=== PATIENT | male | born 1975 | race African-American/Black ===

== ENCOUNTER 2017-01-28 21:05 | Inpatient (IN) | payer OTHER ==
[~2017-01-28] VITALS: Ht 172.7 cm; Wt 86.2 kg
[2017-01-28] MEDS ORDERED: HYDROmorphone 2 MG/ML VIAL ONE (21:14)
[2017-01-28] MEDS: HYDROmorphone 2 MG/ML VIAL IV/SQ PRN ×3 (21:15→22:57)
[2017-01-28 21:27] LABS: BASO # 0.1 x10^3/uL (0.0-0.2); BASO % 1 % (0-3); EOS % 0 % (0-3); HEMATOCRIT 42.8 % (39.0-53.0); HEMOGLOBIN 14.4 g/dL (13.0-17.5); LYMPH # 0.9 x10^3/uL (1.0-4.8); LYMPH % 10 % (24-48); MEAN CORPUSCULAR HEMOGLOBIN 32 pg (25-35); MEAN CORPUSCULAR HGB CONC 34 g/dL (31-37); MEAN CORPUSCULAR VOLUME 94 fL (79-100); MONO % 6 % (0-9); NEUT % 83 % (31-73); PLATELET COUNT 173 x10^3/uL (140-400); RED BLOOD COUNT 4.55 x10^6/uL (4.30-5.70); RED CELL DISTRIBUTION WIDTH 12.1 % (11.5-14.5); WHITE BLOOD COUNT 8.8 x10^3/uL (4.0-11.0)
--- NOTE | 2017-01-28 21:27 | PHYS DOC ---
Past Medical History Past Medical History: No Pertinent History Past Surgical History: No Surgical History Alcohol Use: Rarely Drug Use: None Adult General Chief Complaint Chief Complaint: TRAUMA ALERT HPI HPI 41 yo M presenting to the ED today after sliding into a base while playing softball. He injured his left leg. he has pain in the midshaft of the femur associated with swelling. His pain is sharp nonradiating and alleviated by fentanyl that was given riverboat captain by EMS. he was placed in a traction splint prior to arrival. ROS neg for head injury, LOC, neck pain, chest pain, abd pain. He denies any other injuries. all other ROS is neg unless noted in HPI elsewhere. ED course: 41 yo M presenting with an injury to the Femur. xrays obtained. Since for a midshaft femur fracture. No other injuries identified on secondary survey. I discussed the case with Dr. Kim orthopedic surgeon at approximately 9:30 PM. He recommended placing the patient in traction. I also discussed the case with Dr. Wiggins who accepted the patient for an acute inpatient admission. The patient was then admitted to our hospital for further evaluation workup and care. Trauma surgery consultation out of standard procedure. Review of Systems Review of Systems see above Current Medications Current Medications Current Medications Medications (Trade) Dose Ordered Sig/Min Start Time Stop Time Status Last Admin Dose Admin Hydromorphone HCl (Dilaudid) 0.5 mg PRN Q15MIN PRN 01/28/17 21:15 01/29/17 21:14 01/28/17 21:33 0.5 MG Sodium Chloride 1,000 ml @ 1,000 mls/hr Q1H 01/28/17 21:30 01/28/17 22:29 Allergies Allergies Allergies Coded Allergies Type Severity Reaction Last Updated Verified No Known Drug Allergies 01/28/17 No Physical Exam Physical Exam Constitutional: Well developed, well nourished, no acute distress, non-toxic appearance. HENT: Normocephalic, atraumatic, bilateral external ears normal, oropharynx moist, no oral exudates, nose normal. [] Eyes: PERRLA, EOMI, conjunctiva normal, no discharge. [] Neck: Normal range of motion, no tenderness, supple, no stridor. Cardiovascular:Heart rate regular rhythm, no murmur [] Lungs & Thorax: Bilateral breath sounds clear to auscultation [] Abdomen: Bowel sounds normal, soft, no tenderness, no masses, no pulsatile masses. Skin: Warm, dry, no erythema, no rash. [] Back: No tenderness, no CVA tenderness. [] Extremities: Pts right lower extremity is warm and well perfused with a palpable pulse. pt has pain in the midshaft of the thigh with swelling. nl sensation and motor distally. otherwise the remainder of the extremities are atraumatic. Neurologic: Alert and oriented X 3, normal motor function, normal sensory function, no focal deficits noted. Psychologic: Affect normal, judgement normal, mood normal. [] Current Patient Data Lab Values Laboratory Tests Test 01/28/17 21:08 White Blood Count 8.8 x10^3/uL (4.0-11.0) Red Blood Count 4.55 x10^6/uL (4.30-5.70) Hemoglobin 14.4 g/dL (13.0-17.5) Hematocrit 42.8 % (39.0-53.0) Mean Corpuscular Volume 94 fL (79-100) Mean Corpuscular Hemoglobin 32 pg (25-35) Mean Corpuscular Hemoglobin Concent 34 g/dL (31-37) Red Cell Distribution Width 12.1 % (11.5-14.5) Platelet Count 173 x10^3/uL (140-400) Neutrophils (%) (Auto) 83 % (31-73) H Lymphocytes (%) (Auto) 10 % (24-48) L Monocytes (%) (Auto) 6 % (0-9) Eosinophils (%) (Auto) 0 % (0-3) Basophils (%) (Auto) 1 % (0-3) Neutrophils # (Auto) 7.3 x10^3uL (1.8-7.7) Lymphocytes # (Auto) 0.9 x10^3/uL (1.0-4.8) L Monocytes # (Auto) 0.5 x10^3/uL (0.0-1.1) Eosinophils # (Auto) 0.0 x10^3/uL (0.0-0.7) Basophils # (Auto) 0.1 x10^3/uL (0.0-0.2) Sodium Level 142 mmol/L (136-145) Potassium Level 3.8 mmol/L (3.5-5.1) Chloride Level 105 mmol/L (98-107) Carbon Dioxide Level 28 mmol/L (21-32) Anion Gap 9 (6-14) Blood Urea Nitrogen 17 mg/dL (8-26) Creatinine 1.8 mg/dL (0.7-1.3) H Estimated GFR (Cockcroft-Gault) 50.3 Glucose Level 162 mg/dL (70-99) H Calcium Level 8.5 mg/dL (8.5-10.1) Ethyl Alcohol Level < 10 mg/dL (0-10) Laboratory Tests 01/28/17 21:08 Laboratory Tests 01/28/17 21:08 EKG EKG [] Radiology/Procedures Radiology/Procedures [] Course & Med Decision Making Course & Med Decision Making Pertinent Labs and Imaging studies reviewed. (See chart for details) [] Dragon Disclaimer Dragon Disclaimer This electronic medical record was generated, in whole or in part, using a voice recognition dictation system. Departure Departure Impression: Primary Impression: Right femoral fracture Disposition: ADMITTED INPATIENT Admitting Physician: Other (REUSCH) Condition: STABLE Referrals: UNKNOWN PCP NAME (PCP) ELLIOTT MITCHELL MD Jan 28, 2017 21:27
[2017-01-28] MEDS ORDERED: IV NORMAL SALINE 1000ML BAG 1,000 ML IV SCH (21:30)
[2017-01-28 21:34] LABS: CALCIUM 8.5 mg/dL (8.5-10.1); CREATININE 1.8 mg/dL (0.7-1.3); GFR 50.3; POTASSIUM 3.8 mmol/L (3.5-5.1)
[2017-01-28 21:35] LABS: INR 1.1 (0.8-1.1); PROTHROMBIN TIME PATIENT 13.9 SEC (11.7-14.0)
--- NOTE | 2017-01-28 23:54 | PDOC1 ---
History and Physical Date of Admission Date of Admission DATE: 01/28/17 TIME: 23:54 Identification/Chief Complaint Chief Complaint L femoral fx Problems: Source Source: Patient History of Present Illness History of Present Illness Mr Mendosa is a healthy 41 y/o man who sustained a femoral fracture on the left after hitting the first base plate during a softball game with his foot and stumbling over the loose plate and falling, sustaining the fracture. He relates that initially, the thigh was painful, but not very swollen, but in the ER, suddnely increased in girth with worsening pain. He required high dose narcotics and ice packs to get the pain under control. Dr Kim has been consulted by [facility], and surgery is planned for AM. Past Medical History Past Medical History no PMH Past Surgical History Past Surgical History: No pertinent history Family History Family History no known FHx Social History Smoke: No ALCOHOL: none Drugs: None Current Problem List Problem List Problems Medical Problems: (1) Right femoral fracture Status: Acute Problems: Current Medications Current Medications no home meds Allergies Allergies: Coded Allergies: No Known Drug Allergies (Unverified , 01/28/17) ROS Review of System severe pain in L thigh. no c/o in rest of organ system review Physical Exam General: Alert, Oriented X3, Cooperative, mild distress HEENT: Atraumatic, EOMI Lungs: Clear to auscultation Heart: RRR Abdomen: Normal bowel sounds, Soft, No tenderness Extremities: No edema, Other (massive swelling with very dense swelling in anterior compartment. skin tight, no discoloration) Skin: No rashes Neuro: Normal speech Psych/Mental Status: Mood NL Vitals Vitals Vital Signs Date Time Temp Pulse Resp B/P (MAP) Pulse Ox O2 Delivery O2 Flow Rate FiO2 01/28/17 21:10 66 20 Nasal Cannula 2.0 01/28/17 21:06 98.8 129/68 (88) 98 98.8 Labs Labs Laboratory Tests Test 01/28/17 21:08 White Blood Count 8.8 x10^3/uL (4.0-11.0) Red Blood Count 4.55 x10^6/uL (4.30-5.70) Hemoglobin 14.4 g/dL (13.0-17.5) Hematocrit 42.8 % (39.0-53.0) Mean Corpuscular Volume 94 fL (79-100) Mean Corpuscular Hemoglobin 32 pg (25-35) Mean Corpuscular Hemoglobin Concent 34 g/dL (31-37) Red Cell Distribution Width 12.1 % (11.5-14.5) Platelet Count 173 x10^3/uL (140-400) Neutrophils (%) (Auto) 83 % (31-73) Lymphocytes (%) (Auto) 10 % (24-48) Monocytes (%) (Auto) 6 % (0-9) Eosinophils (%) (Auto) 0 % (0-3) Basophils (%) (Auto) 1 % (0-3) Neutrophils # (Auto) 7.3 x10^3uL (1.8-7.7) Lymphocytes # (Auto) 0.9 x10^3/uL (1.0-4.8) Monocytes # (Auto) 0.5 x10^3/uL (0.0-1.1) Eosinophils # (Auto) 0.0 x10^3/uL (0.0-0.7) Basophils # (Auto) 0.1 x10^3/uL (0.0-0.2) Prothrombin Time 13.9 SEC (11.7-14.0) Prothromb Time International Ratio 1.1 (0.8-1.1) Activated Partial Thromboplast Time 24 SEC (24-38) Sodium Level 142 mmol/L (136-145) Potassium Level 3.8 mmol/L (3.5-5.1) Chloride Level 105 mmol/L (98-107) Carbon Dioxide Level 28 mmol/L (21-32) Anion Gap 9 (6-14) Blood Urea Nitrogen 17 mg/dL (8-26) Creatinine 1.8 mg/dL (0.7-1.3) Estimated GFR (Cockcroft-Gault) 50.3 Glucose Level 162 mg/dL (70-99) Calcium Level 8.5 mg/dL (8.5-10.1) Ethyl Alcohol Level < 10 mg/dL (0-10) Laboratory Tests Test 01/28/17 21:08 White Blood Count 8.8 x10^3/uL (4.0-11.0) Red Blood Count 4.55 x10^6/uL (4.30-5.70) Hemoglobin 14.4 g/dL (13.0-17.5) Hematocrit 42.8 % (39.0-53.0) Mean Corpuscular Volume 94 fL (79-100) Mean Corpuscular Hemoglobin 32 pg (25-35) Mean Corpuscular Hemoglobin Concent 34 g/dL (31-37) Red Cell Distribution Width 12.1 % (11.5-14.5) Platelet Count 173 x10^3/uL (140-400) Neutrophils (%) (Auto) 83 % (31-73) Lymphocytes (%) (Auto) 10 % (24-48) Monocytes (%) (Auto) 6 % (0-9) Eosinophils (%) (Auto) 0 % (0-3) Basophils (%) (Auto) 1 % (0-3) Neutrophils # (Auto) 7.3 x10^3uL (1.8-7.7) Lymphocytes # (Auto) 0.9 x10^3/uL (1.0-4.8) Monocytes # (Auto) 0.5 x10^3/uL (0.0-1.1) Eosinophils # (Auto) 0.0 x10^3/uL (0.0-0.7) Basophils # (Auto) 0.1 x10^3/uL (0.0-0.2) Prothrombin Time 13.9 SEC (11.7-14.0) Prothromb Time International Ratio 1.1 (0.8-1.1) Activated Partial Thromboplast Time 24 SEC (24-38) Sodium Level 142 mmol/L (136-145) Potassium Level 3.8 mmol/L (3.5-5.1) Chloride Level 105 mmol/L (98-107) Carbon Dioxide Level 28 mmol/L (21-32) Anion Gap 9 (6-14) Blood Urea Nitrogen 17 mg/dL (8-26) Creatinine 1.8 mg/dL (0.7-1.3) Estimated GFR (Cockcroft-Gault) 50.3 Glucose Level 162 mg/dL (70-99) Calcium Level 8.5 mg/dL (8.5-10.1) Ethyl Alcohol Level < 10 mg/dL (0-10) VTE Prophylaxis Ordered VTE Prophylaxis Devices: Yes VTE Pharmacological Prophylaxi: Contraindicated Assessment/Plan Assessment/Plan Mr Mendosa is a 41 y/o AAM with L femoral fracture sustained in a sporting accident. He is schedule dfor surgery in AM. The swelling in his thigh is quite concerning for compartment syndrome. if worsening in swelling or skin changes, neurological compromise or uncontrolled pain occur, immediate surgery may be indicated. For an time being, he will receive IV dilaudid or morphine PRN. lovenox will be held until post surgery. He willbe NPO post MN, and will be started in IVF. SIMON BANDA MD Jan 28, 2017 23:54
[2017-01-29] VITALS (12 sets, daily range): BP systolic 111–156; BP diastolic 51–89
[2017-01-29] MEDS ORDERED: IV NORMAL SALINE 1000ML BAG 1,000 ML IV SCH
[2017-01-29] MEDS: MORPHINE SULFATE 4 MG/ML DISP.SYRIN. IV PRN ×4 (01:13→21:38)
[2017-01-29 04:28] LABS: BASO % 1 % (0-3); EOS % 0 % (0-3); HEMATOCRIT 39.1 % (39.0-53.0); HEMOGLOBIN 13.1 g/dL (13.0-17.5); LYMPH # 0.6 x10^3/uL (1.0-4.8); LYMPH % 6 % (24-48); MEAN CORPUSCULAR HEMOGLOBIN 32 pg (25-35); MEAN CORPUSCULAR HGB CONC 33 g/dL (31-37); MEAN CORPUSCULAR VOLUME 95 fL (79-100); MONO % 6 % (0-9); NEUT % 87 % (31-73); PLATELET COUNT 149 x10^3/uL (140-400); RED BLOOD COUNT 4.13 x10^6/uL (4.30-5.70); WHITE BLOOD COUNT 9.6 x10^3/uL (4.0-11.0)
--- NOTE | 2017-01-29 04:41 | ACF ---
Admission Forms Criteria MUSCULOSKELETAL DISEASE GRG Clinical Indications for Admission to Inpatient Care (Place 'X' for any and all applicable criteria): Hospital admission is needed for appropriate care of the patient because of 1 or more of the following: [X]I. Fracture, dislocation, or other musculoskeletal injury requiring inpatient care(medical) as indicated by 1 or more of the following(4)(5)(6)(7) [ ]a) Vertebral fracture requiring observation for instability or neurologic compromise (8) [ ]b) Compartment syndrome (proven or cannot be ruled out during observation level of care) (9) [ ]c) Limb-threatening injury [ ]d) Major injury requiring inpatient stabilization such as traction initiation or external fixation before internal fixation or closure of complex or open fracture [X]e) Major injury requiring inpatient treatment after emergency or observation level care (as appropriate) [ ]f) Severe pain requiring acute inpatient management [ ]g) Injury with suspicion of abuse or neglect (eg., child, dependent elderly) [ ]II. Newly diagnosed or suspected bone, joint, or orthopedic device infection (e.g., osteomyelitis, septic arthritis) needing 1 or more of the following(1)(2)(3) [ ]a) IV antibiotics that cannot be initiated in other than inpatient setting (e.g., patient too unstable or home infusion not available) [ ]b) Device removal or replacement [ ]c) Bone or soft tissue debridement [ ]d) Joint drainage (drain placement or repetitive aspirations) [ ]III. Severe rheumatologic disease (e.g., systemic lupus erythematosus, rheumatoid arthritis) with complications or comorbidities (Also use Optimal Recovery Care Criteria or General Recovery Criteria as appropriate on the basis of predominant condition), including 1 or more of the following( 10)(11)(12)(13) [ ]a) Severe infection (e.g., LEADER [employer]SEMBLER infection, sepsis) (14) [ ]b) Respiratory complications, including 1 or more of the following : [ ]i) Pleural effusion with respiratory compromise [ ]ii) Pulmonary hypertension with congestive failure [ ]iii) Respiratory failure [ ]iv) Pulmonary hemorrhage (15) [ ]c) Hematologic disease, including 1 or more of the following: [ ]i) Coagulopathy with bleeding [ ]ii) Thrombosis with hypercoagulable state [ ]iii) Thrombotic thrombocytopenic purpura [ ]d) Cerebritis with seizures, psychosis, or other severe abnormalities [ ]e) Vertebral destruction with monitoring needed for cervical myelopathy& possible respiratory compromise [ ]f) Exacerbation that requires inpatient treatment (e.g., intravenous immunosuppression) (16) [ ]g) Acute renal failure [ ]h) Cerebritis with seizures, psychosis, Altered mental status, or other neurologic abnormalities [ ]i) Pericardial effusion with tamponade [ ]j) Vertebral destruction, with monitoring needed for cervical myelopathy and possible respiratory compromise [ ]IV. Severe vasculitis with complications or comorbidities (Also use Optimal Recovery Care Criteria General Recovery Criteria as appropriate on the basis of predominant condition), including 1 or more of the following(11)(12)(17)(18)(19)(20) [ ]a) Exacerbation that requires inpatient treatment (e.g., intravenous immunosuppression) (19)(21) [ ]b) Pulmonary hemorrhage (15) [ ]c) LEADER ASSEMBLER vasculitis with seizures, psychosis, Altered mental status that is severe or persistent, or other severe abnormalities (22) [ ]d) Cerebral infarction [ ]e) Gastrointestinal ischemia [ ]f) Gangrene or threatened amputation [ ]g) Renal failure (16) [ ]h) Other significant complications of vasculitis ( eg., tissue or organ ischemia, organ dysfunction ) [ ]V. Severe myopathy as indicated by 1 or more of the following (28)(29) [ ]a) New onset of airway compromise or inability to swallow [ ]b) Respiratory deterioration with observation needed for impending respiratory failure [ ]c) Exacerbation that requires inpatient treatment (e.g., intravenous immunosuppression) [ ]. Severe crystal gout (arthropathy) indicated by 1 or more of the following (23)(24) [ ]a) Severe pain requiring acute inpatient management [ ]b) Exacerbation that requires inpatient treatment (e.g., intravenous treatment) [ ]VII.Rhabdomyolysis and 1 or more of the following (25)(26)(27) [ ]a) Acute renal failure [ ]b) Need for intravenous hydration after emergency or observation level care (as appropriate) [ ]c) Inability to maintain oral hydration [ ]d) Change in mental status [ ]e) Electrolyte abnormality that remains after emergency or observation level care (as appropriate) [ ]VIII Post amputation complication, as indicated by ANY ONE of the following [ ]a) Infection [ ]b) Dehiscence [ ]c) Myodesis failure [ ]IX. Severe pain requiring acute inpatient management due to musculoskeletal condition [ ]X. Musculoskeletal Disease and ALL of the following: [ ]a) Symptom or finding for which emergency and observation care have failed or are not considered appropriate (Use General Criteria: Observation Care as appropriate) [ ]b) Presence of ANY ONE of the following [ ]i) A General Admission Criteria [ ]ii) A Pediatric General Admission Criteria The original [facility] [employer] content created by [facility] [employer] has been revised. The portions of the content which have been revised are identified through the use of italic text or in bold, and [facility] has neither reviewed nor approved the modified material. All other unmodified content is copyright [facility] [employer]. Please see references footnoted in the original [facility] [employer] edition 2016 Admission Criteria Met?: Yes MARIE VILLARREAL Jan 29, 2017 04:41
[2017-01-29 04:44] LABS: CALCIUM 7.5 mg/dL (8.5-10.1); CREATININE 1.4 mg/dL (0.7-1.3); GFR 67.2; POTASSIUM 3.9 mmol/L (3.5-5.1)
[2017-01-29 07:43] LABS: % BASOS 1 % (0-3); PLT ESTIMATE ADEQUATE (ADEQUATE)
[2017-01-29] MEDS ORDERED: LIDOCAINE 2% PF Vial for OR 5 ML VIAL. ONE (08:11)
[2017-01-29] MEDS ORDERED: fentaNYL PF VIAL 100 MCG/2 ML VIAL ONE ×2 (08:11→08:38)
[2017-01-29] MEDS ORDERED: PROPOFOL 20 ML IV ONE (08:11)
--- NOTE | 2017-01-29 08:19 | RAD ---
Left femur, 2 views, 01/28/2017: History: Leg pain, injury There is a comminuted fracture of the mid femoral shaft. There is moderate medial and posterior displacement of the major distal fracture fragment. Limited views of the knee and hip are unremarkable. IMPRESSION: Comminuted, displaced mid femoral shaft fracture Pelvis, single view, 01/28/2017: The upper portion of the pelvis was not completely included on this limited exam. No pelvic fracture is identified. The hip joints are well-maintained.
[2017-01-29] MEDS ORDERED: IV RINGERS,LACTATED 1000ML 1,000 ML IV SCH (08:43)
[2017-01-29] MEDS: fentaNYL PF VIAL 100 MCG/2 ML VIAL IV PRN ×2 (08:45→12:35)
[2017-01-29] MEDS ORDERED: PROCHLORPERAZINE 10 MG/2 ML VIAL. IV PRN (08:45)
[2017-01-29] MEDS ORDERED: MORPHINE SULFATE 2 MG/ML DISP.SYRIN. IV PRN (08:45)
[2017-01-29] MEDS ORDERED: fentaNYL PF VIAL 100 MCG/2 ML VIAL IV PRN ×2 (08:45→13:00)
[2017-01-29] MEDS ORDERED: LIDOCAINE 1% 1 ML SYRINGE. ID PRN (08:45)
[2017-01-29] MEDS ORDERED: ONDANSETRON PF 4 MG/2 ML VIAL. IV PRN ×2 (08:45→13:00)
--- NOTE | 2017-01-29 10:37 | PDOC2 ---
CONSULT Date of Consult Date of Consult DATE: 01/29/17 TIME: 10:33 Reason for Consult Reason for Consult: femur fracture Referring Physician Referring Physician: Judy Identification/Chief Complaint Chief Complaint left upper leg pain Problems: Source Source: Patient History of Present Illness Reason for Visit: 41 yo M fell during softball yesterday and heard a pop. C/o pain left upper leg. No other c/o. Past Medical History Cardiovascular: No pertinent hx Past Surgical History Past Surgical History: No pertinent history (finger surgery) Family History Family History: No Significant Social History No ALCOHOL: none Drugs: None Current Problem List Problem List Problems Medical Problems: (1) Right femoral fracture Status: Acute Current Medications Current Medications Current Medications Hydromorphone HCl (Dilaudid) 2 mg STK-MED ONCE .ROUTE ; Start 01/28/17 at 21:14 ; Stop 01/28/17 at 21:15; Status DC Hydromorphone HCl (Dilaudid) 0.5 mg PRN Q15MIN PRN IV/SQ PAIN GREATER THAN 3/ 10 Last administered on 01/28/17 22:57; Start 01/28/17 at 21:15; Stop 01/29/17 at 21:14 Sodium Chloride 1,000 ml @ 1,000 mls/hr Q1H IV Last administered on 01/28/17 21:30; Start 01/28/17 at 21:30; Stop 01/28/17 at 22:29; Status DC Morphine Sulfate 4 mg PRN Q2HR PRN IV SEVERE PAIN Last administered on 06:14; Start 01/29/17 at 00:00; Stop 01/29/17 at 23:59 Sodium Chloride 1,000 ml @ 125 mls/hr Q8H IV Last administered on 01/29/17 01 :47; Start 01/29/17 at 00:00; Stop 01/29/17 at 00:01; Status DC Sodium Chloride 1,000 ml @ 50 mls/hr Q20H IV ; Start 01/29/17 at 02:30 Lidocaine HCl (Lidocaine Pf 2% Vial) 5 ml STK-MED ONCE .ROUTE ; Start 01/29/17 at 08:11; Stop 01/29/17 at 08:12; Status DC Propofol 20 ml @ As Directed STK-MED ONCE IV ; Start 01/29/17 at 08:11; Stop 06/07 at 08:12; Status DC Fentanyl Citrate (Fentanyl 2ml Vial) 100 mcg STK-MED ONCE .ROUTE ; Start at 08:11; Stop 01/29/17 at 08:12; Status DC Fentanyl Citrate (Fentanyl 2ml Vial) 100 mcg STK-MED ONCE .ROUTE ; Start at 08:38; Stop 01/29/17 at 08:39; Status DC Ondansetron HCl (Zofran) 4 mg PRN Q6HRS PRN IV NAUSEA/VOMITING; Start 01/29/17 at 08:45; Stop 01/29/17 at 18:00 Fentanyl Citrate (Fentanyl 2ml Vial) 25 mcg PRN Q5MIN PRN IV MILD PAIN; Start 01/29/17 at 08:45; Stop 01/29/17 at 18:00 Fentanyl Citrate (Fentanyl 2ml Vial) 50 mcg PRN Q5MIN PRN IV MODERATE PAIN Last administered on 01/29/17t 08:45; Start 01/29/17 at 08:45; Stop 01/29/17 at 18:00 Morphine Sulfate 1 mg PRN Q10MIN PRN IV SEVERE PAIN; Start 01/29/17 at 08:45; Stop 01/29/17 at 18:00 Ringer's Solution 1,000 ml @ 30 mls/hr Q24H IV ; Start 01/29/17 at 08:43; Stop 01/29/17 at 20:42 Lidocaine HCl 2 ml PRN 1X PRN ID PRIOR TO IV START; Start 01/29/17 at 08:45; Stop 01/29/17 at 18:00 Hydromorphone HCl (Dilaudid) 0.5 mg PRN Q10MIN PRN IV SEV PAIN, Second choice; Start 01/29/17 at 08:45; Stop 01/29/17 at 18:00 Prochlorperazine Edisylate (Compazine) 5 mg PACU PRN PRN IV NAUSEA, MRX1; Start 01/29/17 at 08:45; Stop 01/29/17 at 18:00 Cefazolin Sodium/ Dextrose 50 ml @ 100 mls/hr 1X PREOP PRN IV PRE OP DOSE; Start 01/29/17 at 10:15; Stop 01/29/17 at 18:00 Active Scripts Active Reported No Known Medications Prior To Admisstion (Info) Each 1 Each Allergies Allergies: Coded Allergies: No Known Drug Allergies (Unverified , 01/28/17) ROS Musculoskeletal: Yes Other (left leg pain, some decrease in sensation of left foot) Physical Exam General: Alert, Oriented X3, Cooperative, No acute distress HEENT: Atraumatic, EOMI, Mucous membr. moist/pink Lungs: Normal air movement Extremities: No clubbing, No cyanosis, Normal pulses, Other (left leg in traction) Psych/Mental Status: Mental status NL, Mood NL Vitals VITALS Vital Signs Date Time Temp Pulse Resp B/P (MAP) Pulse Ox O2 Delivery O2 Flow Rate FiO2 01/29/17 08:45 16 Room Air 01/29/17 08:31 100.4 63 135/77 96 100.4 01/29/17 06:14 2.0 Labs Labs Laboratory Tests Test 01/28/17 21:08 01/29/17 03:35 White Blood Count 8.8 x10^3/uL (4.0-11.0) 9.6 x10^3/uL (4.0-11.0) Red Blood Count 4.55 x10^6/uL (4.30-5.70) 4.13 x10^6/uL (4.30-5.70) Hemoglobin 14.4 g/dL (13.0-17.5) 13.1 g/dL (13.0-17.5) Hematocrit 42.8 % (39.0-53.0) 39.1 % (39.0-53.0) Mean Corpuscular Volume 94 fL (79-100) 95 fL (79-100) Mean Corpuscular Hemoglobin 32 pg (25-35) 32 pg (25-35) Mean Corpuscular Hemoglobin Concent 34 g/dL (31-37) 33 g/dL (31-37) Red Cell Distribution Width 12.1 % (11.5-14.5) 12.0 % (11.5-14.5) Platelet Count 173 x10^3/uL (140-400) 149 x10^3/uL (140-400) Neutrophils (%) (Auto) 83 % (31-73) 87 % (31-73) Lymphocytes (%) (Auto) 10 % (24-48) 6 % (24-48) Monocytes (%) (Auto) 6 % (0-9) 6 % (0-9) Eosinophils (%) (Auto) 0 % (0-3) 0 % (0-3) Basophils (%) (Auto) 1 % (0-3) 1 % (0-3) Neutrophils # (Auto) 7.3 x10^3uL (1.8-7.7) 8.3 x10^3uL (1.8-7.7) Lymphocytes # (Auto) 0.9 x10^3/uL (1.0-4.8) 0.6 x10^3/uL (1.0-4.8) Monocytes # (Auto) 0.5 x10^3/uL (0.0-1.1) 0.6 x10^3/uL (0.0-1.1) Eosinophils # (Auto) 0.0 x10^3/uL (0.0-0.7) 0.0 x10^3/uL (0.0-0.7) Basophils # (Auto) 0.1 x10^3/uL (0.0-0.2) 0.0 x10^3/uL (0.0-0.2) Prothrombin Time 13.9 SEC (11.7-14.0) Prothromb Time International Ratio 1.1 (0.8-1.1) Activated Partial Thromboplast Time 24 SEC (24-38) Sodium Level 142 mmol/L (136-145) 142 mmol/L (136-145) Potassium Level 3.8 mmol/L (3.5-5.1) 3.9 mmol/L (3.5-5.1) Chloride Level 105 mmol/L (98-107) 108 mmol/L (98-107) Carbon Dioxide Level 28 mmol/L (21-32) 26 mmol/L (21-32) Anion Gap 9 (6-14) 8 (6-14) Blood Urea Nitrogen 17 mg/dL (8-26) 15 mg/dL (8-26) Creatinine 1.8 mg/dL (0.7-1.3) 1.4 mg/dL (0.7-1.3) Estimated GFR (Cockcroft-Gault) 50.3 67.2 Glucose Level 162 mg/dL (70-99) 121 mg/dL (70-99) Calcium Level 8.5 mg/dL (8.5-10.1) 7.5 mg/dL (8.5-10.1) Ethyl Alcohol Level < 10 mg/dL (0-10) Segmented Neutrophils % 87 % (35-66) Band Neutrophils % 4 % (0-9) Lymphocytes % 5 % (24-48) Monocytes % 3 % (0-10) Basophils % 1 % (0-3) Platelet Estimate Adequate (ADEQUATE) Laboratory Tests Test 01/28/17 21:08 01/29/17 03:35 White Blood Count 8.8 x10^3/uL (4.0-11.0) 9.6 x10^3/uL (4.0-11.0) Red Blood Count 4.55 x10^6/uL (4.30-5.70) 4.13 x10^6/uL (4.30-5.70) Hemoglobin 14.4 g/dL (13.0-17.5) 13.1 g/dL (13.0-17.5) Hematocrit 42.8 % (39.0-53.0) 39.1 % (39.0-53.0) Mean Corpuscular Volume 94 fL (79-100) 95 fL (79-100) Mean Corpuscular Hemoglobin 32 pg (25-35) 32 pg (25-35) Mean Corpuscular Hemoglobin Concent 34 g/dL (31-37) 33 g/dL (31-37) Red Cell Distribution Width 12.1 % (11.5-14.5) 12.0 % (11.5-14.5) Platelet Count 173 x10^3/uL (140-400) 149 x10^3/uL (140-400) Neutrophils (%) (Auto) 83 % (31-73) 87 % (31-73) Lymphocytes (%) (Auto) 10 % (24-48) 6 % (24-48) Monocytes (%) (Auto) 6 % (0-9) 6 % (0-9) Eosinophils (%) (Auto) 0 % (0-3) 0 % (0-3) Basophils (%) (Auto) 1 % (0-3) 1 % (0-3) Neutrophils # (Auto) 7.3 x10^3uL (1.8-7.7) 8.3 x10^3uL (1.8-7.7) Lymphocytes # (Auto) 0.9 x10^3/uL (1.0-4.8) 0.6 x10^3/uL (1.0-4.8) Monocytes # (Auto) 0.5 x10^3/uL (0.0-1.1) 0.6 x10^3/uL (0.0-1.1) Eosinophils # (Auto) 0.0 x10^3/uL (0.0-0.7) 0.0 x10^3/uL (0.0-0.7) Basophils # (Auto) 0.1 x10^3/uL (0.0-0.2) 0.0 x10^3/uL (0.0-0.2) Prothrombin Time 13.9 SEC (11.7-14.0) Prothromb Time International Ratio 1.1 (0.8-1.1) Activated Partial Thromboplast Time 24 SEC (24-38) Sodium Level 142 mmol/L (136-145) 142 mmol/L (136-145) Potassium Level 3.8 mmol/L (3.5-5.1) 3.9 mmol/L (3.5-5.1) Chloride Level 105 mmol/L (98-107) 108 mmol/L (98-107) Carbon Dioxide Level 28 mmol/L (21-32) 26 mmol/L (21-32) Anion Gap 9 (6-14) 8 (6-14) Blood Urea Nitrogen 17 mg/dL (8-26) 15 mg/dL (8-26) Creatinine 1.8 mg/dL (0.7-1.3) 1.4 mg/dL (0.7-1.3) Estimated GFR (Cockcroft-Gault) 50.3 67.2 Glucose Level 162 mg/dL (70-99) 121 mg/dL (70-99) Calcium Level 8.5 mg/dL (8.5-10.1) 7.5 mg/dL (8.5-10.1) Ethyl Alcohol Level < 10 mg/dL (0-10) Segmented Neutrophils % 87 % (35-66) Band Neutrophils % 4 % (0-9) Lymphocytes % 5 % (24-48) Monocytes % 3 % (0-10) Basophils % 1 % (0-3) Platelet Estimate Adequate (ADEQUATE) Images Images XR left femur fracture Assessment/Plan Assessment/Plan left femur fracture pt seen in preop, going for repair by ortho no trauma surgery plans Thanks for consult! ELIZABETH POOLE MD Jan 29, 2017 10:37 am
[2017-01-29] MEDS ORDERED: SEVOFLURANE 61 TO 120 MINUTES. IH ONE (10:58)
[2017-01-29] MEDS ORDERED: DEXAMETHASONE SOD PHOS 20 MG/5 ML VIAL. ONE (10:58)
[2017-01-29] MEDS ORDERED: ONDANSETRON PF 4 MG/2 ML VIAL. ONE (11:24)
--- NOTE | 2017-01-29 12:13 | PDOC ---
PROGRESS NOTES Chief Complaint Chief Complaint L femoral fracture ASSESSMENT AND PLAN: 1. L femur fx: s/p ORIF left femoral shaft fx with anterograde IM nail this AM. recovering appropriately. 2. Thigh swelling: compartment syndrome, improving 3. Pain control: IV dilaudid or morphine PRN. 4. Nutrition: advance diet as tolerated 5. Constipation: narcotic induced. miralax bid 6. Prophylaxis: start lovenox in AM . Vitals Vitals Vital Signs Date Time Temp Pulse Resp B/P (MAP) Pulse Ox O2 Delivery O2 Flow Rate FiO2 01/29/17 08:45 16 Room Air 01/29/17 08:31 100.4 63 135/77 96 100.4 01/29/17 06:14 2.0 Physical Exam General: Alert, Oriented X3, Cooperative, No acute distress Heart: Regular rate Lungs: Clear Abdomen: Normal bowel sounds, Soft, No tenderness Extremities: No clubbing, No cyanosis, Normal pulses, Other (left leg with dital femur incision covered with gauze. anterior thigh swellnig improved) Skin: No rashes Labs LABS Laboratory Tests Test 01/28/17 21:08 01/29/17 03:35 White Blood Count 8.8 x10^3/uL (4.0-11.0) 9.6 x10^3/uL (4.0-11.0) Red Blood Count 4.55 x10^6/uL (4.30-5.70) 4.13 x10^6/uL (4.30-5.70) Hemoglobin 14.4 g/dL (13.0-17.5) 13.1 g/dL (13.0-17.5) Hematocrit 42.8 % (39.0-53.0) 39.1 % (39.0-53.0) Mean Corpuscular Volume 94 fL (79-100) 95 fL (79-100) Mean Corpuscular Hemoglobin 32 pg (25-35) 32 pg (25-35) Mean Corpuscular Hemoglobin Concent 34 g/dL (31-37) 33 g/dL (31-37) Red Cell Distribution Width 12.1 % (11.5-14.5) 12.0 % (11.5-14.5) Platelet Count 173 x10^3/uL (140-400) 149 x10^3/uL (140-400) Neutrophils (%) (Auto) 83 % (31-73) 87 % (31-73) Lymphocytes (%) (Auto) 10 % (24-48) 6 % (24-48) Monocytes (%) (Auto) 6 % (0-9) 6 % (0-9) Eosinophils (%) (Auto) 0 % (0-3) 0 % (0-3) Basophils (%) (Auto) 1 % (0-3) 1 % (0-3) Neutrophils # (Auto) 7.3 x10^3uL (1.8-7.7) 8.3 x10^3uL (1.8-7.7) Lymphocytes # (Auto) 0.9 x10^3/uL (1.0-4.8) 0.6 x10^3/uL (1.0-4.8) Monocytes # (Auto) 0.5 x10^3/uL (0.0-1.1) 0.6 x10^3/uL (0.0-1.1) Eosinophils # (Auto) 0.0 x10^3/uL (0.0-0.7) 0.0 x10^3/uL (0.0-0.7) Basophils # (Auto) 0.1 x10^3/uL (0.0-0.2) 0.0 x10^3/uL (0.0-0.2) Prothrombin Time 13.9 SEC (11.7-14.0) Prothromb Time International Ratio 1.1 (0.8-1.1) Activated Partial Thromboplast Time 24 SEC (24-38) Sodium Level 142 mmol/L (136-145) 142 mmol/L (136-145) Potassium Level 3.8 mmol/L (3.5-5.1) 3.9 mmol/L (3.5-5.1) Chloride Level 105 mmol/L (98-107) 108 mmol/L (98-107) Carbon Dioxide Level 28 mmol/L (21-32) 26 mmol/L (21-32) Anion Gap 9 (6-14) 8 (6-14) Blood Urea Nitrogen 17 mg/dL (8-26) 15 mg/dL (8-26) Creatinine 1.8 mg/dL (0.7-1.3) 1.4 mg/dL (0.7-1.3) Estimated GFR (Cockcroft-Gault) 50.3 67.2 Glucose Level 162 mg/dL (70-99) 121 mg/dL (70-99) Calcium Level 8.5 mg/dL (8.5-10.1) 7.5 mg/dL (8.5-10.1) Ethyl Alcohol Level < 10 mg/dL (0-10) Segmented Neutrophils % 87 % (35-66) Band Neutrophils % 4 % (0-9) Lymphocytes % 5 % (24-48) Monocytes % 3 % (0-10) Basophils % 1 % (0-3) Platelet Estimate Adequate (ADEQUATE) SIMON BANDA MD Jan 29, 2017 12:13
[2017-01-29] MEDS ORDERED: POLYETHYLENE GLYCOL 3350 17 GM PACKET. PO PRN (13:00)
[2017-01-29] MEDS ORDERED: DEXTROSE 50% 25 GM / 50ML DISP.SYRIN. IV PRN (13:00)
[2017-01-29] MEDS: HYDROmorphone 2 MG/ML VIAL IV PRN ×3 (13:03→13:28)
--- NOTE | 2017-01-29 13:26 | PDOC ---
BRIEF OPERATIVE NOTE Date: Jan 29, 2017 Pre-Op Diagnosis left femoral shaft fracture Post-Op Diagnosis same Procedure Performed ORIF left femoral shaft fx with anterograde im nail Surgeon Judy Anesthesia Type: General Blood Loss 50cc Findings above Complications none OPerative Note Operative indications patient is a 41-year-old male who injured his left leg playing softball he said he got his leg caught on the base flipped over and landed on his left side had the immediate onset of pain and deformity x-rays revealed a femoral shaft fracture. I had gone over with him the rationale for treatment the high healing rate in general of femur fractures and the possible complications of infection nerve or blood vessel damage medical or other anesthetic complications blood clots among others. All his questions were answered he wants to proceed with surgical evaluation and treatment. Operative text: Patient was identified procedure verified after adequate amounts of general endotracheal anesthesia were administered he was transferred to the [place] fracture table where all bony prominences were well padded the right well leg was positioned and the left leg was placed under traction and verified under fluoroscopy to easily obtain adequate fracture reduction. The left leg was then prepped and draped in standard sterile fashion and after timeout was performed patient procedure identified and verified an incision was made just proximal to the greater trochanteric entry point and the entry awl was placed intramedullary from the greater trochanter. A long guidewire was then placed fracture was reduced to guidewire placed across the fracture site entry drill bit was placed to accommodate the proximal portion of the nail and reaming was carried out intramedullary to 13 mm. A size 40 cm x 11.5 mm anterograde [employer] femoral nail was then placed and the guidewire was removed distal locking screw was placed and the nail back slapped and locked proximally rotation was verified to be adequate and excellent fixation carried out throughout. Reduction was satisfactory in AP lateral and oblique planes a large butterfly fragment was noted medially but overall acceptable location reduction. Thorough irrigation carried out normal saline solution fashion was closed with #1 Vicryl suture subcutaneous closure with buried #2 Vicryl suture skin closure with rere sterile dressings were applied patient was returned to recovery room in stable condition having tolerated the procedure well BRITNI BURCIAGA MD Jan 29, 2017 13:26
[2017-01-29] MEDS ORDERED: WARFARIN 7.5 MG TABLET. PO ONE (16:00)
[2017-01-29] MEDS: oxyCODONE IR 5 MG TABLET PO PRN (17:44)
[2017-01-29] MEDS: POLYETHYLENE GLYCOL 3350 17 GM PACKET. PO SCH (17:44)
[2017-01-29] MEDS: SENNOSIDES/DOCUSATE 8.6/50MG TABLET. PO SCH (17:44)
[2017-01-30 03:26] VITALS: BP 124/66
[2017-01-30] MEDS: MORPHINE SULFATE 4 MG/ML DISP.SYRIN. IV PRN ×4 (04:07→22:03)
[2017-01-30 05:17] LABS: HEMATOCRIT 36.2 % (39.0-53.0); HEMOGLOBIN 12.6 g/dL (13.0-17.5); RED BLOOD COUNT 3.89 x10^6/uL (4.30-5.70); RED CELL DISTRIBUTION WIDTH 11.8 % (11.5-14.5); WHITE BLOOD COUNT 7.7 x10^3/uL (4.0-11.0)
[2017-01-30 05:35] LABS: CALCIUM 7.9 mg/dL (8.5-10.1); CREATININE 1.4 mg/dL (0.7-1.3); GFR 67.2; POTASSIUM 3.6 mmol/L (3.5-5.1)
[2017-01-30] MEDS ORDERED: MAGNESIUM HYDROXIDE 2,400 MG/30 ML ORAL.SUSP. PO PRN (06:00)
[2017-01-30] MEDS: ENOXAPARIN 40 MG/0.4 ML SYRINGE. SQ SCH (06:20)
[2017-01-30] MEDS: HYDROcodone/APAP 7.5/325MG 1 TAB TABLET PO PRN ×3 (06:24→19:53)
[2017-01-30 07:00] VITALS: BP 128/67
[2017-01-30] MEDS: SENNOSIDES/DOCUSATE 8.6/50MG TABLET. PO SCH (10:09)
[2017-01-30] MEDS: oxyCODONE IR 5 MG TABLET PO PRN (10:10)
[2017-01-30] MEDS: POLYETHYLENE GLYCOL 3350 17 GM PACKET. PO SCH ×2 (10:11→21:00)
[2017-01-30 11:00] VITALS: BP 122/71
[2017-01-30 12:58] LABS: HEMATOCRIT 34.9 % (39.0-53.0)
--- NOTE | 2017-01-30 13:19 | PDOC ---
SURGICAL PROGRESS NOTE Subjective Pt with some soreness of his leg, but otherwise doing well Vital Signs Vital Signs Date Time Temp Pulse Resp B/P (MAP) Pulse Ox O2 Delivery O2 Flow Rate FiO2 01/30/17 11:02 20 Room Air 01/30/17 11:00 98.9 85 122/71 (88) 99 98.9 01/30/17 04:37 2.0 I&O Intake and Output 01/30/17 07:00 Intake Total 590 ml Output Total 1350 ml Balance -760 ml Intake Oral 240 ml IV Total 250 ml Other 100 ml Output Urine Total 1350 ml General: Alert, Oriented X3, Cooperative, No acute distress Abdomen: Soft, No tenderness Labs Laboratory Tests Test 01/28/17 21:08 01/29/17 03:35 01/30/17 04:55 01/30/17 12:45 White Blood Count 8.8 x10^3/uL (4.0-11.0) 9.6 x10^3/uL (4.0-11.0) 7.7 x10^3/uL (4.0-11.0) Red Blood Count 4.55 x10^6/uL (4.30-5.70) 4.13 x10^6/uL (4.30-5.70) 3.89 x10^6/uL (4.30-5.70) Hemoglobin 14.4 g/dL (13.0-17.5) 13.1 g/dL (13.0-17.5) 12.6 g/dL (13.0-17.5) 12.0 g/dL (13.0-17.5) Hematocrit 42.8 % (39.0-53.0) 39.1 % (39.0-53.0) 36.2 % (39.0-53.0) 34.9 % (39.0-53.0) Mean Corpuscular Volume 94 fL (79-100) 95 fL (79-100) 93 fL (79-100) Mean Corpuscular Hemoglobin 32 pg (25-35) 32 pg (25-35) 32 pg (25-35) Mean Corpuscular Hemoglobin Concent 34 g/dL (31-37) 33 g/dL (31-37) 35 g/dL (31-37) 34 g/dL (31-37) Red Cell Distribution Width 12.1 % (11.5-14.5) 12.0 % (11.5-14.5) 11.8 % (11.5-14.5) Platelet Count 173 x10^3/uL (140-400) 149 x10^3/uL (140-400) 152 x10^3/uL (140-400) Neutrophils (%) (Auto) 83 % (31-73) 87 % (31-73) Lymphocytes (%) (Auto) 10 % (24-48) 6 % (24-48) Monocytes (%) (Auto) 6 % (0-9) 6 % (0-9) Eosinophils (%) (Auto) 0 % (0-3) 0 % (0-3) Basophils (%) (Auto) 1 % (0-3) 1 % (0-3) Neutrophils # (Auto) 7.3 x10^3uL (1.8-7.7) 8.3 x10^3uL (1.8-7.7) Lymphocytes # (Auto) 0.9 x10^3/uL (1.0-4.8) 0.6 x10^3/uL (1.0-4.8) Monocytes # (Auto) 0.5 x10^3/uL (0.0-1.1) 0.6 x10^3/uL (0.0-1.1) Eosinophils # (Auto) 0.0 x10^3/uL (0.0-0.7) 0.0 x10^3/uL (0.0-0.7) Basophils # (Auto) 0.1 x10^3/uL (0.0-0.2) 0.0 x10^3/uL (0.0-0.2) Prothrombin Time 13.9 SEC (11.7-14.0) Prothromb Time International Ratio 1.1 (0.8-1.1) Activated Partial Thromboplast Time 24 SEC (24-38) Sodium Level 142 mmol/L (136-145) 142 mmol/L (136-145) 141 mmol/L (136-145) Potassium Level 3.8 mmol/L (3.5-5.1) 3.9 mmol/L (3.5-5.1) 3.6 mmol/L (3.5-5.1) Chloride Level 105 mmol/L (98-107) 108 mmol/L (98-107) 104 mmol/L (98-107) Carbon Dioxide Level 28 mmol/L (21-32) 26 mmol/L (21-32) 29 mmol/L (21-32) Anion Gap 9 (6-14) 8 (6-14) 8 (6-14) Blood Urea Nitrogen 17 mg/dL (8-26) 15 mg/dL (8-26) 11 mg/dL (8-26) Creatinine 1.8 mg/dL (0.7-1.3) 1.4 mg/dL (0.7-1.3) 1.4 mg/dL (0.7-1.3) Estimated GFR (Cockcroft-Gault) 50.3 67.2 67.2 Glucose Level 162 mg/dL (70-99) 121 mg/dL (70-99) 119 mg/dL (70-99) Calcium Level 8.5 mg/dL (8.5-10.1) 7.5 mg/dL (8.5-10.1) 7.9 mg/dL (8.5-10.1) Ethyl Alcohol Level < 10 mg/dL (0-10) Segmented Neutrophils % 87 % (35-66) Band Neutrophils % 4 % (0-9) Lymphocytes % 5 % (24-48) Monocytes % 3 % (0-10) Basophils % 1 % (0-3) Platelet Estimate Adequate (ADEQUATE) Laboratory Tests Test 01/30/17 04:55 01/30/17 12:45 White Blood Count 7.7 x10^3/uL (4.0-11.0) Red Blood Count 3.89 x10^6/uL (4.30-5.70) Hemoglobin 12.6 g/dL (13.0-17.5) 12.0 g/dL (13.0-17.5) Hematocrit 36.2 % (39.0-53.0) 34.9 % (39.0-53.0) Mean Corpuscular Volume 93 fL (79-100) Mean Corpuscular Hemoglobin 32 pg (25-35) Mean Corpuscular Hemoglobin Concent 35 g/dL (31-37) 34 g/dL (31-37) Red Cell Distribution Width 11.8 % (11.5-14.5) Platelet Count 152 x10^3/uL (140-400) Sodium Level 141 mmol/L (136-145) Potassium Level 3.6 mmol/L (3.5-5.1) Chloride Level 104 mmol/L (98-107) Carbon Dioxide Level 29 mmol/L (21-32) Anion Gap 8 (6-14) Blood Urea Nitrogen 11 mg/dL (8-26) Creatinine 1.4 mg/dL (0.7-1.3) Estimated GFR (Cockcroft-Gault) 67.2 Glucose Level 119 mg/dL (70-99) Calcium Level 7.9 mg/dL (8.5-10.1) Problem List Problems Medical Problems: (1) Right femoral fracture Status: Acute Assessment/Plan appears to be doing well care per ortho no trauma surgery plans will sign off, but please call for questions Problems: ELIZABETH POOLE MD Jan 30, 2017 13:19
--- NOTE | 2017-01-30 14:01 | PDOC ---
PROGRESS NOTES Chief Complaint Chief Complaint L femoral fracture ASSESSMENT AND PLAN: 1. L femur fx: s/p ORIF left femoral shaft fx with anterograde IM nail 01/29 2. Thigh swellin post 1 3. Pain control 4. Nutrition 5. Constipation: narcotic induced. miralax bid plan: fu with ortho need to see if need warfarin to go home, currently on it pain control on percocet, and iv morphine ptot hope dc in 1 -2ds . History of Present Illness History of Present Illness severe pain Vitals Vitals Vital Signs Date Time Temp Pulse Resp B/P (MAP) Pulse Ox O2 Delivery O2 Flow Rate FiO2 01/30/17 11:02 20 Room Air 01/30/17 11:00 98.9 85 122/71 (88) 99 98.9 01/30/17 04:37 2.0 Physical Exam General: Alert, Oriented X3, Cooperative, No acute distress Heart: Regular rate Lungs: Clear Abdomen: Soft, No tenderness Extremities: No clubbing, No cyanosis, Normal pulses, Other (left leg with dital femur incision covered with gauze. anterior thigh swellnig improved) Skin: No rashes Labs LABS Laboratory Tests Test 01/30/17 04:55 01/30/17 12:45 White Blood Count 7.7 x10^3/uL (4.0-11.0) Red Blood Count 3.89 x10^6/uL (4.30-5.70) Hemoglobin 12.6 g/dL (13.0-17.5) 12.0 g/dL (13.0-17.5) Hematocrit 36.2 % (39.0-53.0) 34.9 % (39.0-53.0) Mean Corpuscular Volume 93 fL (79-100) Mean Corpuscular Hemoglobin 32 pg (25-35) Mean Corpuscular Hemoglobin Concent 35 g/dL (31-37) 34 g/dL (31-37) Red Cell Distribution Width 11.8 % (11.5-14.5) Platelet Count 152 x10^3/uL (140-400) Sodium Level 141 mmol/L (136-145) Potassium Level 3.6 mmol/L (3.5-5.1) Chloride Level 104 mmol/L (98-107) Carbon Dioxide Level 29 mmol/L (21-32) Anion Gap 8 (6-14) Blood Urea Nitrogen 11 mg/dL (8-26) Creatinine 1.4 mg/dL (0.7-1.3) Estimated GFR (Cockcroft-Gault) 67.2 Glucose Level 119 mg/dL (70-99) Calcium Level 7.9 mg/dL (8.5-10.1) Review of Systems Review of Systems no fever, chills, chest pain or sob Assessment and Plan Assessmemt and Plan Problems Medical Problems: (1) Right femoral fracture Status: Acute Problems: Comment Review of Relevant I have reviewed the following items ivette (where applicable) has been applied. Labs Laboratory Tests Test 01/28/17 21:08 01/29/17 03:35 01/30/17 04:55 01/30/17 12:45 White Blood Count 8.8 x10^3/uL (4.0-11.0) 9.6 x10^3/uL (4.0-11.0) 7.7 x10^3/uL (4.0-11.0) Red Blood Count 4.55 x10^6/uL (4.30-5.70) 4.13 x10^6/uL (4.30-5.70) 3.89 x10^6/uL (4.30-5.70) Hemoglobin 14.4 g/dL (13.0-17.5) 13.1 g/dL (13.0-17.5) 12.6 g/dL (13.0-17.5) 12.0 g/dL (13.0-17.5) Hematocrit 42.8 % (39.0-53.0) 39.1 % (39.0-53.0) 36.2 % (39.0-53.0) 34.9 % (39.0-53.0) Mean Corpuscular Volume 94 fL (79-100) 95 fL (79-100) 93 fL (79-100) Mean Corpuscular Hemoglobin 32 pg (25-35) 32 pg (25-35) 32 pg (25-35) Mean Corpuscular Hemoglobin Concent 34 g/dL (31-37) 33 g/dL (31-37) 35 g/dL (31-37) 34 g/dL (31-37) Red Cell Distribution Width 12.1 % (11.5-14.5) 12.0 % (11.5-14.5) 11.8 % (11.5-14.5) Platelet Count 173 x10^3/uL (140-400) 149 x10^3/uL (140-400) 152 x10^3/uL (140-400) Neutrophils (%) (Auto) 83 % (31-73) 87 % (31-73) Lymphocytes (%) (Auto) 10 % (24-48) 6 % (24-48) Monocytes (%) (Auto) 6 % (0-9) 6 % (0-9) Eosinophils (%) (Auto) 0 % (0-3) 0 % (0-3) Basophils (%) (Auto) 1 % (0-3) 1 % (0-3) Neutrophils # (Auto) 7.3 x10^3uL (1.8-7.7) 8.3 x10^3uL (1.8-7.7) Lymphocytes # (Auto) 0.9 x10^3/uL (1.0-4.8) 0.6 x10^3/uL (1.0-4.8) Monocytes # (Auto) 0.5 x10^3/uL (0.0-1.1) 0.6 x10^3/uL (0.0-1.1) Eosinophils # (Auto) 0.0 x10^3/uL (0.0-0.7) 0.0 x10^3/uL (0.0-0.7) Basophils # (Auto) 0.1 x10^3/uL (0.0-0.2) 0.0 x10^3/uL (0.0-0.2) Prothrombin Time 13.9 SEC (11.7-14.0) Prothromb Time International Ratio 1.1 (0.8-1.1) Activated Partial Thromboplast Time 24 SEC (24-38) Sodium Level 142 mmol/L (136-145) 142 mmol/L (136-145) 141 mmol/L (136-145) Potassium Level 3.8 mmol/L (3.5-5.1) 3.9 mmol/L (3.5-5.1) 3.6 mmol/L (3.5-5.1) Chloride Level 105 mmol/L (98-107) 108 mmol/L (98-107) 104 mmol/L (98-107) Carbon Dioxide Level 28 mmol/L (21-32) 26 mmol/L (21-32) 29 mmol/L (21-32) Anion Gap 9 (6-14) 8 (6-14) 8 (6-14) Blood Urea Nitrogen 17 mg/dL (8-26) 15 mg/dL (8-26) 11 mg/dL (8-26) Creatinine 1.8 mg/dL (0.7-1.3) 1.4 mg/dL (0.7-1.3) 1.4 mg/dL (0.7-1.3) Estimated GFR (Cockcroft-Gault) 50.3 67.2 67.2 Glucose Level 162 mg/dL (70-99) 121 mg/dL (70-99) 119 mg/dL (70-99) Calcium Level 8.5 mg/dL (8.5-10.1) 7.5 mg/dL (8.5-10.1) 7.9 mg/dL (8.5-10.1) Ethyl Alcohol Level < 10 mg/dL (0-10) Segmented Neutrophils % 87 % (35-66) Band Neutrophils % 4 % (0-9) Lymphocytes % 5 % (24-48) Monocytes % 3 % (0-10) Basophils % 1 % (0-3) Platelet Estimate Adequate (ADEQUATE) Laboratory Tests Test 01/30/17 04:55 01/30/17 12:45 White Blood Count 7.7 x10^3/uL (4.0-11.0) Red Blood Count 3.89 x10^6/uL (4.30-5.70) Hemoglobin 12.6 g/dL (13.0-17.5) 12.0 g/dL (13.0-17.5) Hematocrit 36.2 % (39.0-53.0) 34.9 % (39.0-53.0) Mean Corpuscular Volume 93 fL (79-100) Mean Corpuscular Hemoglobin 32 pg (25-35) Mean Corpuscular Hemoglobin Concent 35 g/dL (31-37) 34 g/dL (31-37) Red Cell Distribution Width 11.8 % (11.5-14.5) Platelet Count 152 x10^3/uL (140-400) Sodium Level 141 mmol/L (136-145) Potassium Level 3.6 mmol/L (3.5-5.1) Chloride Level 104 mmol/L (98-107) Carbon Dioxide Level 29 mmol/L (21-32) Anion Gap 8 (6-14) Blood Urea Nitrogen 11 mg/dL (8-26) Creatinine 1.4 mg/dL (0.7-1.3) Estimated GFR (Cockcroft-Gault) 67.2 Glucose Level 119 mg/dL (70-99) Calcium Level 7.9 mg/dL (8.5-10.1) Medications Current Medications Hydromorphone HCl (Dilaudid) 2 mg STK-MED ONCE .ROUTE ; Start 01/28/17 at 21:14 ; Stop 01/28/17 at 21:15; Status DC Hydromorphone HCl (Dilaudid) 0.5 mg PRN Q15MIN PRN IV/SQ PAIN GREATER THAN 3/ 10 Last administered on 01/28/17 22:57; Start 01/28/17 at 21:15; Stop 01/29/17 at 21:14; Status DC Sodium Chloride 1,000 ml @ 1,000 mls/hr Q1H IV Last administered on 01/28/17 21:30; Start 01/28/17 at 21:30; Stop 01/28/17 at 22:29; Status DC Morphine Sulfate 4 mg PRN Q2HR PRN IV SEVERE PAIN Last administered on 21:38; Start 01/29/17 at 00:00; Stop 01/29/17 at 23:59; Status DC Sodium Chloride 1,000 ml @ 125 mls/hr Q8H IV Last administered on 01/29/17 01 :47; Start 01/29/17 at 00:00; Stop 01/29/17 at 00:01; Status DC Sodium Chloride 1,000 ml @ 50 mls/hr Q20H IV ; Start 01/29/17 at 02:30 Lidocaine HCl (Lidocaine Pf 2% Vial) 5 ml STK-MED ONCE .ROUTE ; Start 01/29/17 at 08:11; Stop 01/29/17 at 08:12; Status DC Propofol 20 ml @ As Directed STK-MED ONCE IV ; Start 01/29/17 at 08:11; Stop 06/07 at 08:12; Status DC Fentanyl Citrate (Fentanyl 2ml Vial) 100 mcg STK-MED ONCE .ROUTE ; Start at 08:11; Stop 01/29/17 at 08:12; Status DC Fentanyl Citrate (Fentanyl 2ml Vial) 100 mcg STK-MED ONCE .ROUTE ; Start at 08:38; Stop 01/29/17 at 08:39; Status DC Ondansetron HCl (Zofran) 4 mg PRN Q6HRS PRN IV NAUSEA/VOMITING; Start 01/29/17 at 08:45; Stop 01/29/17 at 18:00; Status DC Fentanyl Citrate (Fentanyl 2ml Vial) 25 mcg PRN Q5MIN PRN IV MILD PAIN; Start 01/29/17 at 08:45; Stop 01/29/17 at 18:00; Status DC Fentanyl Citrate (Fentanyl 2ml Vial) 50 mcg PRN Q5MIN PRN IV MODERATE PAIN Last administered on 01/29/17t 12:35; Start 01/29/17 at 08:45; Stop 01/29/17 at 18:00; Status DC Morphine Sulfate 1 mg PRN Q10MIN PRN IV SEVERE PAIN; Start 01/29/17 at 08:45; Stop 01/29/17 at 18:00; Status DC Ringer's Solution 1,000 ml @ 30 mls/hr Q24H IV ; Start 01/29/17 at 08:43; Stop 01/29/17 at 20:42; Status DC Lidocaine HCl 2 ml PRN 1X PRN ID PRIOR TO IV START; Start 01/29/17 at 08:45; Stop 01/29/17 at 18:00; Status DC Hydromorphone HCl (Dilaudid) 0.5 mg PRN Q10MIN PRN IV SEV PAIN, Second choice Last administered on 01/29/17t 13:28; Start 01/29/17 at 08:45; Stop 01/29/17 at 18:00; Status DC Prochlorperazine Edisylate (Compazine) 5 mg PACU PRN PRN IV NAUSEA, MRX1; Start 01/29/17 at 08:45; Stop 01/29/17 at 18:00; Status DC Cefazolin Sodium/ Dextrose 50 ml @ 100 mls/hr 1X PREOP PRN IV PRE OP DOSE Last administered on 01/29/17 11:05; Start 01/29/17 at 10:15; Stop 01/29/17 at 18:00; Status DC Dexamethasone Sodium Phosphate (Decadron) 20 mg STK-MED ONCE .ROUTE ; Start 06/07 at 10:58; Stop 01/29/17 at 10:59; Status DC Sevoflurane (Ultane) 60 ml STK-MED ONCE IH ; Start 01/29/17 at 10:58; Stop 01/29 at 10:59; Status DC Ondansetron HCl (Zofran) 4 mg STK-MED ONCE .ROUTE ; Start 01/29/17 at 11:24; Stop 01/29/17 at 11:25; Status DC Oxycodone HCl (Roxicodone) 5 mg PRN Q3HRS PRN PO PAIN Last administered on 01/30 10:10; Start 01/29/17 at 13:00 Morphine Sulfate 2 mg PRN Q1HR PRN IV PAIN; Start 01/29/17 at 13:00 Fentanyl Citrate (Fentanyl 2ml Vial) 25 mcg PRN Q1HR PRN IV PAIN; Start at 13:00 Senna/Docusate Sodium (Senna Plus) 1 tab DAILY PO Last administered on 10:09; Start 01/29/17 at 14:00 Polyethylene Glycol (miraLAX PACKET) 17 gm PRN DAILY PRN PO CONSTIPATION; Start 01/29/17 at 13:00 Ondansetron HCl (Zofran) 4 mg PRN Q4HRS PRN IV NAUSEA/VOMITING; Start 01/29/17 at 13:00 Warfarin Sodium (Coumadin) 7.5 mg 1X ONCE PO Last administered on 01/29/17 17 :44; Start 01/29/17 at 16:00; Stop 01/29/17 at 16:01; Status DC Warfarin Sodium (Coumadin Per Pharmacy) 1 each PRN DAILY PRN MC SEE COMMENTS; Start 01/30/17 at 13:00 Magnesium Hydroxide (Milk Of Magnesia) 2,400 mg 1X PRN PRN PO CONSTIPATION; Start 01/30/17 at 06:00; Stop 01/31/17 at 05:59 Bisacodyl (Dulcolax Supp) 10 mg 1X PRN PRN [place] CONSTIPATION; Start 01/30/17 at 16:00; Stop 01/31/17 at 15:59 Acetaminophen/ Hydrocodone Bitart (Lortab 7.5/325) 1 tab PRN Q4HRS PRN PO PAIN ; Start 01/29/17 at 13:00 Morphine Sulfate 4 mg PRN Q2HR PRN IV PAIN Last administered on 01/30/17 04:07 ; Start 01/29/17 at 13:00 Acetaminophen/ Hydrocodone Bitart (Lortab 7.5/325) 2 tab PRN Q4HRS PRN PO PAIN Last administered on 01/30/17 11:02; Start 01/29/17 at 13:00 Dextrose (Dextrose 50%-Water Syringe) 12.5 gm PRN Q15MIN PRN IV SEE COMMENTS; Start 01/29/17 at 13:00 Cefazolin Sodium/ Dextrose 50 ml @ 100 mls/hr Q6H IV Last administered on 01/30 06:13; Start 01/29/17 at 18:00; Stop 01/30/17 at 06:29; Status DC Enoxaparin Sodium (Lovenox 40mg Syringe) 40 mg Q24H SQ Last administered on 06:20; Start 01/30/17 at 07:00 Polyethylene Glycol (miraLAX PACKET) 17 gm BID PO Last administered on 10:11; Start 01/29/17 at 21:00 Active Scripts Active Reported No Known Medications Prior To Admisstion (Info) Each 1 Each Vitals/I & O Vital Sign - Last 24 Hours 01/29/17 01/29/17 01/29/17 01/29/17 14:11 14:31 14:46 15:01 Temp 98.4 98.4 Pulse 70 84 75 98 Resp 18 B/P (MAP) 143/82 (102) 144/75 (98) 156/79 (104) 155/89 (111) Pulse Ox 97 97 92 98 O2 Delivery Nasal Cannula Nasal Cannula Room Air Room Air O2 Flow Rate 1.0 1.0 01/29/17 01/29/17 01/29/17 01/29/17 15:30 15:47 16:01 17:01 Pulse 63 61 67 B/P (MAP) 137/77 (97) 132/76 (94) 135/76 (95) Pulse Ox 93 93 96 97 O2 Delivery Room Air Room Air Room Air Room Air 01/29/17 01/29/17 01/29/17 01/29/17 17:44 18:24 19:35 19:40 Temp 98.4 98.4 Pulse 69 Resp 18 B/P (MAP) 123/64 (83) Pulse Ox 98 O2 Delivery Nasal Cannula Room Air Nasal Cannula Nasal Cannula O2 Flow Rate 2.0 2.0 01/29/17 01/29/17 01/29/17 01/30/17 21:38 22:08 23:21 03:26 Temp 98.4 98.8 98.4 98.8 Pulse 82 91 Resp 20 20 18 18 B/P (MAP) 126/66 (86) 124/66 (85) Pulse Ox 98 97 O2 Delivery Nasal Cannula Nasal Cannula Room Air Room Air O2 Flow Rate 2.0 2.0 01/30/17 01/30/17 01/30/17 01/30/17 04:07 04:37 06:24 07:00 Temp 99.4 99.4 Pulse 79 Resp 20 20 20 18 B/P (MAP) 128/67 (87) Pulse Ox 96 O2 Delivery Nasal Cannula Nasal Cannula Room Air Room Air O2 Flow Rate 2.0 2.0 01/30/17 01/30/17 01/30/17 10:10 11:00 11:02 Temp 98.9 98.9 Pulse 85 Resp 20 18 20 B/P (MAP) 122/71 (88) Pulse Ox 99 O2 Delivery Room Air Room Air Room Air Intake and Output 01/29/17 01/29/17 01/30/17 15:00 23:00 07:00 Intake Total 590 ml Output Total 800 ml 550 ml Balance -800 ml 40 ml JEANNINE HUGHES MD Jan 30, 2017 14:01
[2017-01-30] MEDS: MORPHINE SULFATE 2 MG/ML DISP.SYRIN. IV PRN (14:52)
[2017-01-30 15:00] VITALS: BP 135/75
[2017-01-30] MEDS ORDERED: BISACODYL 10 MG SUPP.RECT. PR PRN (16:00)
[2017-01-30] MEDS ORDERED: WARFARIN 5 MG TABLET. PO ONE (16:00)
--- NOTE | 2017-01-30 17:10 | PDOC ---
PROGRESS NOTES Subjective Subjective Problems overnight: Left thigh is swollen has some pain with movement has not had pain medicine recently as his IV infiltrated earlier this morning Objective Vital Signs Vital Signs Date Time Temp Pulse Resp B/P (MAP) Pulse Ox O2 Delivery O2 Flow Rate FiO2 01/30/17 15:00 98.9 81 18 135/75 (95) 94 Room Air 98.9 01/30/17 04:37 2.0 Physical Exam On examination mild swelling but not tenseness in his left thigh distal neurovascular status is intact incisions clean dry intact specifically he can plantar and dorsiflex his foot and distal sensation is intact particularly to the plantar dorsum medial and lateral aspects of the foot and leg Labs Laboratory Tests Test 01/28/17 21:08 01/29/17 03:35 01/30/17 04:55 01/30/17 12:45 White Blood Count 8.8 x10^3/uL (4.0-11.0) 9.6 x10^3/uL (4.0-11.0) 7.7 x10^3/uL (4.0-11.0) Red Blood Count 4.55 x10^6/uL (4.30-5.70) 4.13 x10^6/uL (4.30-5.70) 3.89 x10^6/uL (4.30-5.70) Hemoglobin 14.4 g/dL (13.0-17.5) 13.1 g/dL (13.0-17.5) 12.6 g/dL (13.0-17.5) 12.0 g/dL (13.0-17.5) Hematocrit 42.8 % (39.0-53.0) 39.1 % (39.0-53.0) 36.2 % (39.0-53.0) 34.9 % (39.0-53.0) Mean Corpuscular Volume 94 fL (79-100) 95 fL (79-100) 93 fL (79-100) Mean Corpuscular Hemoglobin 32 pg (25-35) 32 pg (25-35) 32 pg (25-35) Mean Corpuscular Hemoglobin Concent 34 g/dL (31-37) 33 g/dL (31-37) 35 g/dL (31-37) 34 g/dL (31-37) Red Cell Distribution Width 12.1 % (11.5-14.5) 12.0 % (11.5-14.5) 11.8 % (11.5-14.5) Platelet Count 173 x10^3/uL (140-400) 149 x10^3/uL (140-400) 152 x10^3/uL (140-400) Neutrophils (%) (Auto) 83 % (31-73) 87 % (31-73) Lymphocytes (%) (Auto) 10 % (24-48) 6 % (24-48) Monocytes (%) (Auto) 6 % (0-9) 6 % (0-9) Eosinophils (%) (Auto) 0 % (0-3) 0 % (0-3) Basophils (%) (Auto) 1 % (0-3) 1 % (0-3) Neutrophils # (Auto) 7.3 x10^3uL (1.8-7.7) 8.3 x10^3uL (1.8-7.7) Lymphocytes # (Auto) 0.9 x10^3/uL (1.0-4.8) 0.6 x10^3/uL (1.0-4.8) Monocytes # (Auto) 0.5 x10^3/uL (0.0-1.1) 0.6 x10^3/uL (0.0-1.1) Eosinophils # (Auto) 0.0 x10^3/uL (0.0-0.7) 0.0 x10^3/uL (0.0-0.7) Basophils # (Auto) 0.1 x10^3/uL (0.0-0.2) 0.0 x10^3/uL (0.0-0.2) Prothrombin Time 13.9 SEC (11.7-14.0) Prothromb Time International Ratio 1.1 (0.8-1.1) Activated Partial Thromboplast Time 24 SEC (24-38) Sodium Level 142 mmol/L (136-145) 142 mmol/L (136-145) 141 mmol/L (136-145) Potassium Level 3.8 mmol/L (3.5-5.1) 3.9 mmol/L (3.5-5.1) 3.6 mmol/L (3.5-5.1) Chloride Level 105 mmol/L (98-107) 108 mmol/L (98-107) 104 mmol/L (98-107) Carbon Dioxide Level 28 mmol/L (21-32) 26 mmol/L (21-32) 29 mmol/L (21-32) Anion Gap 9 (6-14) 8 (6-14) 8 (6-14) Blood Urea Nitrogen 17 mg/dL (8-26) 15 mg/dL (8-26) 11 mg/dL (8-26) Creatinine 1.8 mg/dL (0.7-1.3) 1.4 mg/dL (0.7-1.3) 1.4 mg/dL (0.7-1.3) Estimated GFR (Cockcroft-Gault) 50.3 67.2 67.2 Glucose Level 162 mg/dL (70-99) 121 mg/dL (70-99) 119 mg/dL (70-99) Calcium Level 8.5 mg/dL (8.5-10.1) 7.5 mg/dL (8.5-10.1) 7.9 mg/dL (8.5-10.1) Ethyl Alcohol Level < 10 mg/dL (0-10) Segmented Neutrophils % 87 % (35-66) Band Neutrophils % 4 % (0-9) Lymphocytes % 5 % (24-48) Monocytes % 3 % (0-10) Basophils % 1 % (0-3) Platelet Estimate Adequate (ADEQUATE) Laboratory Tests Test 01/30/17 04:55 01/30/17 12:45 White Blood Count 7.7 x10^3/uL (4.0-11.0) Red Blood Count 3.89 x10^6/uL (4.30-5.70) Hemoglobin 12.6 g/dL (13.0-17.5) 12.0 g/dL (13.0-17.5) Hematocrit 36.2 % (39.0-53.0) 34.9 % (39.0-53.0) Mean Corpuscular Volume 93 fL (79-100) Mean Corpuscular Hemoglobin 32 pg (25-35) Mean Corpuscular Hemoglobin Concent 35 g/dL (31-37) 34 g/dL (31-37) Red Cell Distribution Width 11.8 % (11.5-14.5) Platelet Count 152 x10^3/uL (140-400) Sodium Level 141 mmol/L (136-145) Potassium Level 3.6 mmol/L (3.5-5.1) Chloride Level 104 mmol/L (98-107) Carbon Dioxide Level 29 mmol/L (21-32) Anion Gap 8 (6-14) Blood Urea Nitrogen 11 mg/dL (8-26) Creatinine 1.4 mg/dL (0.7-1.3) Estimated GFR (Cockcroft-Gault) 67.2 Glucose Level 119 mg/dL (70-99) Calcium Level 7.9 mg/dL (8.5-10.1) Assessment Assessment POD# [1], S/P [ORIF left femur shaft fracture] Problems: Plan Plan of Care I described to him that were going to keep him protected toe-touch weightbearing until more healing is obtained probably a few weeks out we can get him up and around more with physical therapy particularly once we get the pain medicine situation better resolved and from an orthopedic standpoint is really stable for discharge as long as his pain is controlled and is getting up and around safely with the weightbearing precautions BRITNI BURCIAGA MD Jan 30, 2017 17:10
[2017-01-30] MEDS: IV NORMAL SALINE 1000ML BAG 1,000 ML IV SCH ×2 (18:24→18:30)
[2017-01-30 19:10] VITALS: BP 148/60
[2017-01-30] MEDS: CYCLOBENZAPRINE 10 MG TABLET. PO PRN (19:52)
[2017-01-30 23:10] VITALS: BP 126/65
[2017-01-31 03:00] VITALS: BP 146/71
[2017-01-31] MEDS: MORPHINE SULFATE 4 MG/ML DISP.SYRIN. IV PRN ×2 (03:53→21:06)
[2017-01-31] MEDS: HYDROcodone/APAP 7.5/325MG 1 TAB TABLET PO PRN ×3 (03:54→19:41)
[2017-01-31 05:40] LABS: INR 1.6 (0.8-1.1); PROTHROMBIN TIME PATIENT 17.9 SEC (11.7-14.0)
[2017-01-31] MEDS: ENOXAPARIN 40 MG/0.4 ML SYRINGE. SQ SCH ×2 (06:18→10:10)
[2017-01-31 07:00] VITALS: BP 158/83
[2017-01-31 07:00] LABS: BILIRUBIN,URINE NEGATIVE (NEG); GLUCOSE,URINE NEGATIVE (NEG); NITRITE,URINE NEGATIVE (NEG); PH,URINE 6.5; PROTEIN,URINE NEGATIVE (NEG-TRACE)
[2017-01-31 07:20] LABS: BACTERIA,URINE 0 /HPF (0-FEW); RBC,URINE 0 /HPF (0-2); SQUAMOUS EPITHELIAL CELL,UR OCC /LPF
[2017-01-31] MEDS: IV NORMAL SALINE 1000ML BAG 1,000 ML IV SCH ×2 (10:07→14:30)
[2017-01-31] MEDS: SENNOSIDES/DOCUSATE 8.6/50MG TABLET. PO SCH (10:08)
[2017-01-31] MEDS: CYCLOBENZAPRINE 10 MG TABLET. PO PRN ×2 (10:08→21:06)
[2017-01-31] MEDS: oxyCODONE IR 5 MG TABLET PO PRN ×2 (10:09→18:31)
[2017-01-31] MEDS: POLYETHYLENE GLYCOL 3350 17 GM PACKET. PO SCH ×2 (10:14→21:05)
--- NOTE | 2017-01-31 10:16 | RAD ---
Chest radiograph 01/31/2017 at 0851 hours Indication: Fever Comparison: None available Technique: Single portable upright view of the chest is provided. Findings: Cardiomediastinal silhouette is within normal limits. No pleural effusions, pulmonary vascular congestion or pneumothorax. There is hazy opacity in the left lower lobe which may represent a developing infiltrate in the appropriate clinical setting. Osseous structures are normal. Impression: Hazy opacity in the left lower lobe may represent an infiltrate in the appropriate clinical setting. Follow-up radiograph in 4-6 weeks is recommended after treatment. Critical results were discussed with nurse Carmona at 10:00 AM on 01/31/[address] Arambula.
--- NOTE | 2017-01-31 10:48 | PDOC ---
PROGRESS NOTES Chief Complaint Chief Complaint L femoral fracture History of Present Illness History of Present Illness Patient is doing relatively well this AM. Resting comfortably on the bed. No acute complaints Vitals Vitals Vital Signs Date Time Temp Pulse Resp B/P (MAP) Pulse Ox O2 Delivery O2 Flow Rate FiO2 01/31/17 10:09 16 96 Room Air 01/31/17 07:00 99.5 105 158/83 (108) 99.5 01/30/17 08:00 2.0 Physical Exam General: Alert, Oriented X3, Cooperative, No acute distress Heart: Regular rate Lungs: Clear Abdomen: Soft, No tenderness Extremities: No clubbing, No cyanosis, Normal pulses, Other (left leg with dital femur incision covered with gauze. anterior thigh swellnig improved) Skin: No rashes, Other (Bandage is clean dry and intact) Labs LABS Laboratory Tests Test 01/30/17 12:45 01/31/17 04:28 01/31/17 05:10 Hemoglobin 12.0 g/dL (13.0-17.5) Hematocrit 34.9 % (39.0-53.0) Mean Corpuscular Hemoglobin Concent 34 g/dL (31-37) Urine Collection Type Unknown Urine Color Yellow Urine Clarity Clear Urine pH 6.5 Urine Specific [place] 1.015 Urine Protein Negative mg/dL (NEG-TRACE) Urine Glucose (UA) Negative mg/dL (NEG) Urine Ketones (Stick) Negative mg/dL (NEG) Urine Blood Negative (NEG) Urine Nitrite Negative (NEG) Urine Bilirubin Negative (NEG) Urine Urobilinogen Dipstick 1.0 mg/dL (0.2 mg/dL) Urine Leukocyte Esterase Negative (NEG) Urine RBC 0 /HPF (0-2) Urine WBC 1-4 /HPF (0-4) Urine Squamous Epithelial Cells Occ /LPF Urine Bacteria 0 /HPF (0-FEW) Urine Mucus Slight /LPF Prothrombin Time 17.9 SEC (11.7-14.0) Prothromb Time International Ratio 1.6 (0.8-1.1) Review of Systems Review of Systems PAtient states he is doing well, denies DAVIS, N/V, chest pain, SOB Assessment and Plan Assessmemt and Plan Assessment: (1) Femoral fracture (2) Mild anemia (3) Hyperglycemia (4) Elevated creatine (5) Post-op leg pain (6) Narcotic induced constipation Plan: 1. Cont rehab with Pt/Ot 2. Wound care of surgical site 3. Discharge when approved by ortho 4. Cont mirilax for constipation 5. Cont pain management 6. Cont clot prophylaxis 7. Discussed plan with patient and answered questions Problems: Comment Review of Relevant I have reviewed the following items ivette (where applicable) has been applied. Labs Laboratory Tests Test 01/30/17 04:55 01/30/17 12:45 01/31/17 04:28 01/31/17 05:10 White Blood Count 7.7 x10^3/uL (4.0-11.0) Red Blood Count 3.89 x10^6/uL (4.30-5.70) Hemoglobin 12.6 g/dL (13.0-17.5) 12.0 g/dL (13.0-17.5) Hematocrit 36.2 % (39.0-53.0) 34.9 % (39.0-53.0) Mean Corpuscular Volume 93 fL (79-100) Mean Corpuscular Hemoglobin 32 pg (25-35) Mean Corpuscular Hemoglobin Concent 35 g/dL (31-37) 34 g/dL (31-37) Red Cell Distribution Width 11.8 % (11.5-14.5) Platelet Count 152 x10^3/uL (140-400) Sodium Level 141 mmol/L (136-145) Potassium Level 3.6 mmol/L (3.5-5.1) Chloride Level 104 mmol/L (98-107) Carbon Dioxide Level 29 mmol/L (21-32) Anion Gap 8 (6-14) Blood Urea Nitrogen 11 mg/dL (8-26) Creatinine 1.4 mg/dL (0.7-1.3) Estimated GFR (Cockcroft-Gault) 67.2 Glucose Level 119 mg/dL (70-99) Calcium Level 7.9 mg/dL (8.5-10.1) Urine Collection Type Unknown Urine Color Yellow Urine Clarity Clear Urine pH 6.5 Urine Specific [place] 1.015 Urine Protein Negative mg/dL (NEG-TRACE) Urine Glucose (UA) Negative mg/dL (NEG) Urine Ketones (Stick) Negative mg/dL (NEG) Urine Blood Negative (NEG) Urine Nitrite Negative (NEG) Urine Bilirubin Negative (NEG) Urine Urobilinogen Dipstick 1.0 mg/dL (0.2 mg/dL) Urine Leukocyte Esterase Negative (NEG) Urine RBC 0 /HPF (0-2) Urine WBC 1-4 /HPF (0-4) Urine Squamous Epithelial Cells Occ /LPF Urine Bacteria 0 /HPF (0-FEW) Urine Mucus Slight /LPF Prothrombin Time 17.9 SEC (11.7-14.0) Prothromb Time International Ratio 1.6 (0.8-1.1) Laboratory Tests Test 01/30/17 12:45 01/31/17 04:28 01/31/17 05:10 Hemoglobin 12.0 g/dL (13.0-17.5) Hematocrit 34.9 % (39.0-53.0) Mean Corpuscular Hemoglobin Concent 34 g/dL (31-37) Urine Collection Type Unknown Urine Color Yellow Urine Clarity Clear Urine pH 6.5 Urine Specific [place] 1.015 Urine Protein Negative mg/dL (NEG-TRACE) Urine Glucose (UA) Negative mg/dL (NEG) Urine Ketones (Stick) Negative mg/dL (NEG) Urine Blood Negative (NEG) Urine Nitrite Negative (NEG) Urine Bilirubin Negative (NEG) Urine Urobilinogen Dipstick 1.0 mg/dL (0.2 mg/dL) Urine Leukocyte Esterase Negative (NEG) Urine RBC 0 /HPF (0-2) Urine WBC 1-4 /HPF (0-4) Urine Squamous Epithelial Cells Occ /LPF Urine Bacteria 0 /HPF (0-FEW) Urine Mucus Slight /LPF Prothrombin Time 17.9 SEC (11.7-14.0) Prothromb Time International Ratio 1.6 (0.8-1.1) Medications Current Medications Hydromorphone HCl (Dilaudid) 2 mg STK-MED ONCE .ROUTE ; Start 01/28/17 at 21:14 ; Stop 01/28/17 at 21:15; Status DC Hydromorphone HCl (Dilaudid) 0.5 mg PRN Q15MIN PRN IV/SQ PAIN GREATER THAN 3/ 10 Last administered on 01/28/17t 22:57; Start 01/28/17 at 21:15; Stop 01/29/17 at 21:14; Status DC Sodium Chloride 1,000 ml @ 1,000 mls/hr Q1H IV Last administered on 01/28/17 21:30; Start 01/28/17 at 21:30; Stop 01/28/17 at 22:29; Status DC Morphine Sulfate 4 mg PRN Q2HR PRN IV SEVERE PAIN Last administered on 21:38; Start 01/29/17 at 00:00; Stop 01/29/17 at 23:59; Status DC Sodium Chloride 1,000 ml @ 125 mls/hr Q8H IV Last administered on 01/29/17 01 :47; Start 01/29/17 at 00:00; Stop 01/29/17 at 00:01; Status DC Sodium Chloride 1,000 ml @ 50 mls/hr Q20H IV Last administered on 01/31/17 10 :07; Start 01/29/17 at 02:30 Lidocaine HCl (Lidocaine Pf 2% Vial) 5 ml STK-MED ONCE .ROUTE ; Start 01/29/17 at 08:11; Stop 01/29/17 at 08:12; Status DC Propofol 20 ml @ As Directed STK-MED ONCE IV ; Start 01/29/17 at 08:11; Stop 06/07 at 08:12; Status DC Fentanyl Citrate (Fentanyl 2ml Vial) 100 mcg STK-MED ONCE .ROUTE ; Start at 08:11; Stop 01/29/17 at 08:12; Status DC Fentanyl Citrate (Fentanyl 2ml Vial) 100 mcg STK-MED ONCE .ROUTE ; Start at 08:38; Stop 01/29/17 at 08:39; Status DC Ondansetron HCl (Zofran) 4 mg PRN Q6HRS PRN IV NAUSEA/VOMITING; Start 01/29/17 at 08:45; Stop 01/29/17 at 18:00; Status DC Fentanyl Citrate (Fentanyl 2ml Vial) 25 mcg PRN Q5MIN PRN IV MILD PAIN; Start 01/29/17 at 08:45; Stop 01/29/17 at 18:00; Status DC Fentanyl Citrate (Fentanyl 2ml Vial) 50 mcg PRN Q5MIN PRN IV MODERATE PAIN Last administered on 01/29/17 12:35; Start 01/29/17 at 08:45; Stop 01/29/17 at 18:00; Status DC Morphine Sulfate 1 mg PRN Q10MIN PRN IV SEVERE PAIN; Start 01/29/17 at 08:45; Stop 01/29/17 at 18:00; Status DC Ringer's Solution 1,000 ml @ 30 mls/hr Q24H IV ; Start 01/29/17 at 08:43; Stop 01/29/17 at 20:42; Status DC Lidocaine HCl 2 ml PRN 1X PRN ID PRIOR TO IV START; Start 01/29/17 at 08:45; Stop 01/29/17 at 18:00; Status DC Hydromorphone HCl (Dilaudid) 0.5 mg PRN Q10MIN PRN IV SEV PAIN, Second choice Last administered on 01/29/17 13:28; Start 01/29/17 at 08:45; Stop 01/29/17 at 18:00; Status DC Prochlorperazine Edisylate (Compazine) 5 mg PACU PRN PRN IV NAUSEA, MRX1; Start 01/29/17 at 08:45; Stop 01/29/17 at 18:00; Status DC Cefazolin Sodium/ Dextrose 50 ml @ 100 mls/hr 1X PREOP PRN IV PRE OP DOSE Last administered on 01/29/17 11:05; Start 01/29/17 at 10:15; Stop 01/29/17 at 18:00; Status DC Dexamethasone Sodium Phosphate (Decadron) 20 mg STK-MED ONCE .ROUTE ; Start 06/07 at 10:58; Stop 01/29/17 at 10:59; Status DC Sevoflurane (Ultane) 60 ml STK-MED ONCE IH ; Start 01/29/17 at 10:58; Stop 01/29 at 10:59; Status DC Ondansetron HCl (Zofran) 4 mg STK-MED ONCE .ROUTE ; Start 01/29/17 at 11:24; Stop 01/29/17 at 11:25; Status DC Oxycodone HCl (Roxicodone) 5 mg PRN Q3HRS PRN PO PAIN Last administered on 01/30 10:10; Start 01/29/17 at 13:00; Stop 01/30/17 at 19:16; Status DC Morphine Sulfate 2 mg PRN Q1HR PRN IV PAIN Last administered on 01/30/17 14:52 ; Start 01/29/17 at 13:00 Fentanyl Citrate (Fentanyl 2ml Vial) 25 mcg PRN Q1HR PRN IV PAIN; Start at 13:00 Senna/Docusate Sodium (Senna Plus) 1 tab DAILY PO Last administered on 10:08; Start 01/29/17 at 14:00 Polyethylene Glycol (miraLAX PACKET) 17 gm PRN DAILY PRN PO CONSTIPATION; Start 01/29/17 at 13:00 Ondansetron HCl (Zofran) 4 mg PRN Q4HRS PRN IV NAUSEA/VOMITING; Start 01/29/17 at 13:00 Warfarin Sodium (Coumadin) 7.5 mg 1X ONCE PO Last administered on 01/29/17 17 :44; Start 01/29/17 at 16:00; Stop 01/29/17 at 16:01; Status DC Warfarin Sodium (Coumadin Per Pharmacy) 1 each PRN DAILY PRN MC SEE COMMENTS Last administered on 01/31/17 10:17; Start 01/30/17 at 13:00 Magnesium Hydroxide (Milk Of Magnesia) 2,400 mg 1X PRN PRN PO CONSTIPATION; Start 01/30/17 at 06:00; Stop 01/31/17 at 05:59; Status DC Bisacodyl (Dulcolax Supp) 10 mg 1X PRN PRN [place] CONSTIPATION; Start 01/30/17 at 16:00; Stop 01/31/17 at 15:59 Acetaminophen/ Hydrocodone Bitart (Lortab 7.5/325) 1 tab PRN Q4HRS PRN PO PAIN ; Start 01/29/17 at 13:00 Morphine Sulfate 4 mg PRN Q2HR PRN IV PAIN Last administered on 01/31/17 03:53 ; Start 01/29/17 at 13:00 Acetaminophen/ Hydrocodone Bitart (Lortab 7.5/325) 2 tab PRN Q4HRS PRN PO PAIN Last administered on 01/31/17 03:54; Start 01/29/17 at 13:00 Dextrose (Dextrose 50%-Water Syringe) 12.5 gm PRN Q15MIN PRN IV SEE COMMENTS; Start 01/29/17 at 13:00 Cefazolin Sodium/ Dextrose 50 ml @ 100 mls/hr Q6H IV Last administered on 01/30 06:13; Start 01/29/17 at 18:00; Stop 01/30/17 at 06:29; Status DC Enoxaparin Sodium (Lovenox 40mg Syringe) 40 mg Q24H SQ Last administered on 10:10; Start 01/30/17 at 07:00 Polyethylene Glycol (miraLAX PACKET) 17 gm BID PO Last administered on 10:14; Start 01/29/17 at 21:00 Warfarin Sodium (Coumadin) 5 mg 1X WARF ONCE PO Last administered on 18:23; Start 01/30/17 at 16:00; Stop 01/30/17 at 16:01; Status DC Oxycodone HCl (Roxicodone) 10 mg PRN Q3HRS PRN PO PAIN Last administered on 10:09; Start 01/30/17 at 19:15 Cyclobenzaprine HCl (Flexeril) 10 mg PRN Q6HRS PRN PO MUSCLE SPASMS Last administered on 01/31/17 10:08; Start 01/30/17 at 19:15 Acetaminophen (Tylenol) 650 mg PRN Q4HRS PRN PO FEVER; Start 01/31/17 at 04:15 Warfarin Sodium (Coumadin) 3 mg 1X WARF ONCE PO ; Start 01/31/17 at 16:00; Stop 01/31/17 at 16:01 Active Scripts Active Reported No Known Medications Prior To Admisstion (Info) Each 1 Each Vitals/I & O Vital Sign - Last 24 Hours 01/30/17 01/30/17 01/30/17 01/30/17 11:00 11:02 11:10 14:52 Temp 98.9 98.9 Pulse 85 Resp 18 20 20 22 B/P (MAP) 122/71 (88) Pulse Ox 99 O2 Delivery Room Air Room Air Room Air Room Air 01/30/17 01/30/17 01/30/17 01/30/17 15:00 15:22 19:10 19:52 Temp 98.9 101.8 98.9 101.8 Pulse 81 102 Resp 18 20 20 18 B/P (MAP) 135/75 (95) 148/60 (89) Pulse Ox 94 96 O2 Delivery Room Air Room Air Room Air Room Air 01/30/17 01/30/17 01/30/17 01/30/17 19:53 20:00 22:03 22:33 Resp 18 20 O2 Delivery Room Air Room Air Room Air 01/30/17 01/31/17 01/31/17 01/31/17 23:10 03:00 03:53 03:54 Temp 99.7 102.0 99.7 102.0 Pulse 101 106 Resp 18 16 20 20 B/P (MAP) 126/65 (85) 146/71 (96) Pulse Ox 91 96 O2 Delivery Room Air Room Air Room Air Room Air 01/31/17 01/31/17 01/31/17 01/31/17 04:23 04:54 07:00 10:09 Temp 99.5 99.5 Pulse 105 Resp 20 20 16 16 B/P (MAP) 158/83 (108) Pulse Ox 94 96 O2 Delivery Room Air Room Air Room Air Intake and Output 01/30/17 01/30/17 01/31/17 15:00 23:00 07:00 Intake Total 500 ml Output Total 500 ml 700 ml Balance -500 ml -200 ml PATRICIA NAVARRETE III DO Jan 31, 2017 10:47
[2017-01-31 11:00] VITALS: BP 140/71
[2017-01-31] MEDS ORDERED: ANTI-COAG MONITOR BY PHARMACY. MC PRN (11:45)
--- NOTE | 2017-01-31 14:29 | PDOC ---
ORTHO PROGRESS NOTES Subjective Pain is better today but still not well controlled. Hasn't been taking pain medication on a regular schedule. Complains of left thigh pain and swelling. Girth of left thigh is increasing. Denies any numbness or tingling. Vitals Vital Signs Date Time Temp Pulse Resp B/P (MAP) Pulse Ox O2 Delivery O2 Flow Rate FiO2 01/31/17 12:55 16 96 Room Air 01/31/17 11:00 99.6 114 140/71 (94) 99.6 01/30/17 08:00 2.0 Labs Laboratory Tests Test 01/30/17 04:55 01/30/17 12:45 01/31/17 04:28 01/31/17 05:10 White Blood Count 7.7 x10^3/uL (4.0-11.0) Red Blood Count 3.89 x10^6/uL (4.30-5.70) Hemoglobin 12.6 g/dL (13.0-17.5) 12.0 g/dL (13.0-17.5) Hematocrit 36.2 % (39.0-53.0) 34.9 % (39.0-53.0) Mean Corpuscular Volume 93 fL (79-100) Mean Corpuscular Hemoglobin 32 pg (25-35) Mean Corpuscular Hemoglobin Concent 35 g/dL (31-37) 34 g/dL (31-37) Red Cell Distribution Width 11.8 % (11.5-14.5) Platelet Count 152 x10^3/uL (140-400) Sodium Level 141 mmol/L (136-145) Potassium Level 3.6 mmol/L (3.5-5.1) Chloride Level 104 mmol/L (98-107) Carbon Dioxide Level 29 mmol/L (21-32) Anion Gap 8 (6-14) Blood Urea Nitrogen 11 mg/dL (8-26) Creatinine 1.4 mg/dL (0.7-1.3) Estimated GFR (Cockcroft-Gault) 67.2 Glucose Level 119 mg/dL (70-99) Calcium Level 7.9 mg/dL (8.5-10.1) Urine Collection Type Unknown Urine Color Yellow Urine Clarity Clear Urine pH 6.5 Urine Specific [place] 1.015 Urine Protein Negative mg/dL (NEG-TRACE) Urine Glucose (UA) Negative mg/dL (NEG) Urine Ketones (Stick) Negative mg/dL (NEG) Urine Blood Negative (NEG) Urine Nitrite Negative (NEG) Urine Bilirubin Negative (NEG) Urine Urobilinogen Dipstick 1.0 mg/dL (0.2 mg/dL) Urine Leukocyte Esterase Negative (NEG) Urine RBC 0 /HPF (0-2) Urine WBC 1-4 /HPF (0-4) Urine Squamous Epithelial Cells Occ /LPF Urine Bacteria 0 /HPF (0-FEW) Urine Mucus Slight /LPF Prothrombin Time 17.9 SEC (11.7-14.0) Prothromb Time International Ratio 1.6 (0.8-1.1) Laboratory Tests Test 01/31/17 04:28 01/31/17 05:10 Urine Collection Type Unknown Urine Color Yellow Urine Clarity Clear Urine pH 6.5 Urine Specific [place] 1.015 Urine Protein Negative mg/dL (NEG-TRACE) Urine Glucose (UA) Negative mg/dL (NEG) Urine Ketones (Stick) Negative mg/dL (NEG) Urine Blood Negative (NEG) Urine Nitrite Negative (NEG) Urine Bilirubin Negative (NEG) Urine Urobilinogen Dipstick 1.0 mg/dL (0.2 mg/dL) Urine Leukocyte Esterase Negative (NEG) Urine RBC 0 /HPF (0-2) Urine WBC 1-4 /HPF (0-4) Urine Squamous Epithelial Cells Occ /LPF Urine Bacteria 0 /HPF (0-FEW) Urine Mucus Slight /LPF Prothrombin Time 17.9 SEC (11.7-14.0) Prothromb Time International Ratio 1.6 (0.8-1.1) Notes Patient is awake and alert sitting up in bed. Breathing nonlabored, no acute distress. Significant edema noted in left thigh. Able to wiggle toes and sensation intact. Incision covered with dressing, no drainage Problems: (1) Right femoral fracture Assessment and Plan Toe-touch weightbearing left lower extremity Xarelto for anticoagulation Compartment syndrome for the thigh is exceptionally rare, will continue to monitor. Pain- patient switched to oxycodone, discussed with patient and nurse to take on schedule to keep ahead of the pain Problem Qualifiers (1) Right femoral fracture: Encounter type: subsequent encounter Femur location: shaft Fracture type: closed Fracture morphology: transverse Fracture alignment: displaced Fracture healing: with routine healing Qualified Codes: S72.321D - Displaced transverse fracture of shaft of right femur, subsequent encounter for closed fracture with routine healing JLUIS HORTON RIVET TOSSER Jan 31, 2017 14:29
[2017-01-31 15:00] VITALS: BP 122/70
[2017-01-31] MEDS ORDERED: WARFARIN 3 MG TABLET. PO ONE (16:00)
[2017-01-31] MEDS: RIVAROXABAN 10 MG TABLET. PO SCH (18:31)
[2017-01-31 19:00] VITALS: BP 142/84
[2017-01-31] MEDS ORDERED: diphenhydrAMINE HCL 25 MG CAPSULE PO ONE (21:00)
[2017-01-31 23:00] VITALS: BP 142/86
[2017-02-01 03:00] VITALS: BP 145/74
[2017-02-01] MEDS: HYDROcodone/APAP 7.5/325MG 1 TAB TABLET PO PRN ×3 (03:19→15:44)
[2017-02-01] MEDS: IV NORMAL SALINE 1000ML BAG 1,000 ML IV SCH (05:52)
[2017-02-01 07:00] VITALS: BP 151/86
[2017-02-01 07:50] LABS: INR 1.9 (0.8-1.1); PROTHROMBIN TIME PATIENT 20.8 SEC (11.7-14.0)
[2017-02-01] MEDS: CYCLOBENZAPRINE 10 MG TABLET. PO PRN ×2 (09:05→22:03)
[2017-02-01] MEDS: POLYETHYLENE GLYCOL 3350 17 GM PACKET. PO SCH ×2 (09:05→21:49)
[2017-02-01] MEDS: SENNOSIDES/DOCUSATE 8.6/50MG TABLET. PO SCH (09:05)
[2017-02-01] MEDS: oxyCODONE IR 5 MG TABLET PO PRN ×2 (09:05→22:04)
[2017-02-01 11:00] VITALS: BP 144/78
--- NOTE | 2017-02-01 11:10 | PDOC ---
PROGRESS NOTES Subjective Subjective Problems overnight: Around yesterday with physical therapy a little bit better, left thigh still very swollen, pain medicine working adequately Objective Vital Signs Vital Signs Date Time Temp Pulse Resp B/P (MAP) Pulse Ox O2 Delivery O2 Flow Rate FiO2 02/01/17 10:00 14 95 02/01/17 09:05 Room Air 02/01/17 07:00 99.9 113 151/86 (107) 99.9 02/01/17 03:19 2.0 Physical Exam On examination his incisions were clean dry intact dressings were changed today proximal anterior thigh had a little bit of blistering that was actually pulled the top layer of skin off with the tape despite being very careful and removal. This area was separately dressed with a foam occlusive dressing. No redness or erythema present. Thigh is swollen but compartment is not tense distal neurovascular status intact Labs Laboratory Tests Test 01/30/17 12:45 01/31/17 04:28 01/31/17 05:10 02/01/17 05:55 Hemoglobin 12.0 g/dL (13.0-17.5) Hematocrit 34.9 % (39.0-53.0) Mean Corpuscular Hemoglobin Concent 34 g/dL (31-37) Urine Collection Type Unknown Urine Color Yellow Urine Clarity Clear Urine pH 6.5 Urine Specific [place] 1.015 Urine Protein Negative mg/dL (NEG-TRACE) Urine Glucose (UA) Negative mg/dL (NEG) Urine Ketones (Stick) Negative mg/dL (NEG) Urine Blood Negative (NEG) Urine Nitrite Negative (NEG) Urine Bilirubin Negative (NEG) Urine Urobilinogen Dipstick 1.0 mg/dL (0.2 mg/dL) Urine Leukocyte Esterase Negative (NEG) Urine RBC 0 /HPF (0-2) Urine WBC 1-4 /HPF (0-4) Urine Squamous Epithelial Cells Occ /LPF Urine Bacteria 0 /HPF (0-FEW) Urine Mucus Slight /LPF Prothrombin Time 17.9 SEC (11.7-14.0) 20.8 SEC (11.7-14.0) Prothromb Time International Ratio 1.6 (0.8-1.1) 1.9 (0.8-1.1) Laboratory Tests Test 02/01/17 05:55 Prothrombin Time 20.8 SEC (11.7-14.0) Prothromb Time International Ratio 1.9 (0.8-1.1) Assessment Assessment POD# [3], S/P [ORIF left femoral shaft fracture] Problems: Plan Plan of Care Toe-touch weight-bearing Xarelto anticoagulation planned for 1 month Hospitalist evaluating for pneumonia Stable from orthopedic standpoint, continue physical therapy for ambulation and transfers Pain and anticoagulation prescriptions written BRITNI BURCIAGA MD Feb 01, 2017 11:10
--- NOTE | 2017-02-01 11:58 | PDOC ---
PROGRESS NOTES Chief Complaint Chief Complaint (1) Femoral fracture (2) Mild anemia (3) Hyperglycemia (4) Elevated creatine (5) Post-op leg pain (6) Narcotic induced constipation History of Present Illness History of Present Illness Patient is continuing to do well this AM. Resting comfortably on the bed. No acute complaints Vitals Vitals Vital Signs Date Time Temp Pulse Resp B/P (MAP) Pulse Ox O2 Delivery O2 Flow Rate FiO2 02/01/17 11:00 97.7 144 20 144/78 (100) 94 Room Air 97.7 02/01/17 03:19 2.0 Physical Exam General: Alert, Oriented X3, Cooperative, No acute distress Heart: Regular rate Lungs: Clear Abdomen: Soft, No tenderness Extremities: No clubbing, No cyanosis, Normal pulses, Other (left leg with dital femur incision covered with gauze. anterior thigh swellnig improved) Skin: No rashes, Other (Bandage is clean dry and intact) Labs LABS Laboratory Tests Test 02/01/17 05:55 Prothrombin Time 20.8 SEC (11.7-14.0) Prothromb Time International Ratio 1.9 (0.8-1.1) Review of Systems Review of Systems Denies n/v, chest pain, DAVIS. Assessment and Plan Assessmemt and Plan Assessment: (1) Femoral fracture (2) Mild anemia (3) Hyperglycemia (4) Elevated creatine (5) Post-op leg pain (6) Narcotic induced constipation Plan: (1.) Cont with rehab: Pt/Ot (2.) Cont wound care of surgical site (3.) Discharge when approved by ortho (4.) Mirilax for constipation (5.) Pain management (6.) Cont clot prophylaxis (7.) Ordered CTX abx for abnormal chest xray--likely can be changed from IV to PO tomorrow (02/02) for discharge (8.) Reviewed cultures: both negative after 1 day (9.) Discussed plan with patient and answered questions Problems: Comment Review of Relevant I have reviewed the following items ivette (where applicable) has been applied. Labs Laboratory Tests Test 01/30/17 12:45 01/31/17 04:28 01/31/17 05:10 02/01/17 05:55 Hemoglobin 12.0 g/dL (13.0-17.5) Hematocrit 34.9 % (39.0-53.0) Mean Corpuscular Hemoglobin Concent 34 g/dL (31-37) Urine Collection Type Unknown Urine Color Yellow Urine Clarity Clear Urine pH 6.5 Urine Specific [place] 1.015 Urine Protein Negative mg/dL (NEG-TRACE) Urine Glucose (UA) Negative mg/dL (NEG) Urine Ketones (Stick) Negative mg/dL (NEG) Urine Blood Negative (NEG) Urine Nitrite Negative (NEG) Urine Bilirubin Negative (NEG) Urine Urobilinogen Dipstick 1.0 mg/dL (0.2 mg/dL) Urine Leukocyte Esterase Negative (NEG) Urine RBC 0 /HPF (0-2) Urine WBC 1-4 /HPF (0-4) Urine Squamous Epithelial Cells Occ /LPF Urine Bacteria 0 /HPF (0-FEW) Urine Mucus Slight /LPF Prothrombin Time 17.9 SEC (11.7-14.0) 20.8 SEC (11.7-14.0) Prothromb Time International Ratio 1.6 (0.8-1.1) 1.9 (0.8-1.1) Laboratory Tests Test 02/01/17 05:55 Prothrombin Time 20.8 SEC (11.7-14.0) Prothromb Time International Ratio 1.9 (0.8-1.1) Microbiology 01/31/17 Blood Culture - Preliminary, Resulted NO GROWTH AFTER 1 DAY Medications Current Medications Hydromorphone HCl (Dilaudid) 2 mg STK-MED ONCE .ROUTE ; Start 01/28/17 at 21:14 ; Stop 01/28/17 at 21:15; Status DC Hydromorphone HCl (Dilaudid) 0.5 mg PRN Q15MIN PRN IV/SQ PAIN GREATER THAN 3/ 10 Last administered on 01/28/17 22:57; Start 01/28/17 at 21:15; Stop 01/29/17 at 21:14; Status DC Sodium Chloride 1,000 ml @ 1,000 mls/hr Q1H IV Last administered on 01/28/17 21:30; Start 01/28/17 at 21:30; Stop 01/28/17 at 22:29; Status DC Morphine Sulfate 4 mg PRN Q2HR PRN IV SEVERE PAIN Last administered on 21:38; Start 01/29/17 at 00:00; Stop 01/29/17 at 23:59; Status DC Sodium Chloride 1,000 ml @ 125 mls/hr Q8H IV Last administered on 01/29/17 01 :47; Start 01/29/17 at 00:00; Stop 01/29/17 at 00:01; Status DC Sodium Chloride 1,000 ml @ 50 mls/hr Q20H IV Last administered on 02/01/17 05 :52; Start 01/29/17 at 02:30 Lidocaine HCl (Lidocaine Pf 2% Vial) 5 ml STK-MED ONCE .ROUTE ; Start 01/29/17 at 08:11; Stop 01/29/17 at 08:12; Status DC Propofol 20 ml @ As Directed STK-MED ONCE IV ; Start 01/29/17 at 08:11; Stop 06/07 at 08:12; Status DC Fentanyl Citrate (Fentanyl 2ml Vial) 100 mcg STK-MED ONCE .ROUTE ; Start at 08:11; Stop 01/29/17 at 08:12; Status DC Fentanyl Citrate (Fentanyl 2ml Vial) 100 mcg STK-MED ONCE .ROUTE ; Start at 08:38; Stop 01/29/17 at 08:39; Status DC Ondansetron HCl (Zofran) 4 mg PRN Q6HRS PRN IV NAUSEA/VOMITING; Start 01/29/17 at 08:45; Stop 01/29/17 at 18:00; Status DC Fentanyl Citrate (Fentanyl 2ml Vial) 25 mcg PRN Q5MIN PRN IV MILD PAIN; Start 01/29/17 at 08:45; Stop 01/29/17 at 18:00; Status DC Fentanyl Citrate (Fentanyl 2ml Vial) 50 mcg PRN Q5MIN PRN IV MODERATE PAIN Last administered on 01/29/17t 12:35; Start 01/29/17 at 08:45; Stop 01/29/17 at 18:00; Status DC Morphine Sulfate 1 mg PRN Q10MIN PRN IV SEVERE PAIN; Start 01/29/17 at 08:45; Stop 01/29/17 at 18:00; Status DC Ringer's Solution 1,000 ml @ 30 mls/hr Q24H IV ; Start 01/29/17 at 08:43; Stop 01/29/17 at 20:42; Status DC Lidocaine HCl 2 ml PRN 1X PRN ID PRIOR TO IV START; Start 01/29/17 at 08:45; Stop 01/29/17 at 18:00; Status DC Hydromorphone HCl (Dilaudid) 0.5 mg PRN Q10MIN PRN IV SEV PAIN, Second choice Last administered on 01/29/17 13:28; Start 01/29/17 at 08:45; Stop 01/29/17 at 18:00; Status DC Prochlorperazine Edisylate (Compazine) 5 mg PACU PRN PRN IV NAUSEA, MRX1; Start 01/29/17 at 08:45; Stop 01/29/17 at 18:00; Status DC Cefazolin Sodium/ Dextrose 50 ml @ 100 mls/hr 1X PREOP PRN IV PRE OP DOSE Last administered on 01/29/17 11:05; Start 01/29/17 at 10:15; Stop 01/29/17 at 18:00; Status DC Dexamethasone Sodium Phosphate (Decadron) 20 mg STK-MED ONCE .ROUTE ; Start 06/07 at 10:58; Stop 01/29/17 at 10:59; Status DC Sevoflurane (Ultane) 60 ml STK-MED ONCE IH ; Start 01/29/17 at 10:58; Stop 01/29 at 10:59; Status DC Ondansetron HCl (Zofran) 4 mg STK-MED ONCE .ROUTE ; Start 01/29/17 at 11:24; Stop 01/29/17 at 11:25; Status DC Oxycodone HCl (Roxicodone) 5 mg PRN Q3HRS PRN PO PAIN Last administered on 01/30 10:10; Start 01/29/17 at 13:00; Stop 01/30/17 at 19:16; Status DC Morphine Sulfate 2 mg PRN Q1HR PRN IV PAIN Last administered on 01/30/17 14:52 ; Start 01/29/17 at 13:00 Fentanyl Citrate (Fentanyl 2ml Vial) 25 mcg PRN Q1HR PRN IV PAIN; Start at 13:00 Senna/Docusate Sodium (Senna Plus) 1 tab DAILY PO Last administered on 09:05; Start 01/29/17 at 14:00 Polyethylene Glycol (miraLAX PACKET) 17 gm PRN DAILY PRN PO CONSTIPATION; Start 01/29/17 at 13:00 Ondansetron HCl (Zofran) 4 mg PRN Q4HRS PRN IV NAUSEA/VOMITING; Start 01/29/17 at 13:00 Warfarin Sodium (Coumadin) 7.5 mg 1X ONCE PO Last administered on 01/29/17 17 :44; Start 01/29/17 at 16:00; Stop 01/29/17 at 16:01; Status DC Warfarin Sodium (Coumadin Per Pharmacy) 1 each PRN DAILY PRN MC SEE COMMENTS Last administered on 01/31/17 10:17; Start 01/30/17 at 13:00; Stop 01/31/17 at 11:33; Status DC Magnesium Hydroxide (Milk Of Magnesia) 2,400 mg 1X PRN PRN PO CONSTIPATION; Start 01/30/17 at 06:00; Stop 01/31/17 at 05:59; Status DC Bisacodyl (Dulcolax Supp) 10 mg 1X PRN PRN [place] CONSTIPATION; Start 01/30/17 at 16:00; Stop 01/31/17 at 15:59; Status DC Acetaminophen/ Hydrocodone Bitart (Lortab 7.5/325) 1 tab PRN Q4HRS PRN PO PAIN ; Start 01/29/17 at 13:00 Morphine Sulfate 4 mg PRN Q2HR PRN IV PAIN Last administered on 01/31/17 21:06 ; Start 01/29/17 at 13:00 Acetaminophen/ Hydrocodone Bitart (Lortab 7.5/325) 2 tab PRN Q4HRS PRN PO PAIN Last administered on 02/01/17 10:00; Start 01/29/17 at 13:00 Dextrose (Dextrose 50%-Water Syringe) 12.5 gm PRN Q15MIN PRN IV SEE COMMENTS; Start 01/29/17 at 13:00 Cefazolin Sodium/ Dextrose 50 ml @ 100 mls/hr Q6H IV Last administered on 01/30 06:13; Start 01/29/17 at 18:00; Stop 01/30/17 at 06:29; Status DC Enoxaparin Sodium (Lovenox 40mg Syringe) 40 mg Q24H SQ Last administered on 10:10; Start 01/30/17 at 07:00; Stop 01/31/17 at 12:00; Status DC Polyethylene Glycol (miraLAX PACKET) 17 gm BID PO Last administered on 09:05; Start 01/29/17 at 21:00 Warfarin Sodium (Coumadin) 5 mg 1X WARF ONCE PO Last administered on 18:23; Start 01/30/17 at 16:00; Stop 01/30/17 at 16:01; Status DC Oxycodone HCl (Roxicodone) 10 mg PRN Q3HRS PRN PO PAIN Last administered on 09:05; Start 01/30/17 at 19:15 Cyclobenzaprine HCl (Flexeril) 10 mg PRN Q6HRS PRN PO MUSCLE SPASMS Last administered on 02/01/17 09:05; Start 01/30/17 at 19:15 Acetaminophen (Tylenol) 650 mg PRN Q4HRS PRN PO FEVER; Start 01/31/17 at 04:15 Warfarin Sodium (Coumadin) 3 mg 1X WARF ONCE PO ; Start 01/31/17 at 16:00; Stop 01/31/17 at 16:01; Status Cancel Rivaroxaban (Xarelto) 10 mg DAILYWSUP PO Last administered on 01/31/17 18:31; Start 01/31/17 at 17:00; Stop 02/27/17 at 17:01 Info (Anti-Coagulation Monitoring By Pharmacy) 1 each PRN DAILY PRN SEE COMMENTS; Start 01/31/17 at 11:45 Diphenhydramine HCl (Benadryl) 25 mg 1X ONCE PO Last administered on 21:06; Start 01/31/17 at 21:00; Stop 01/31/17 at 21:01; Status DC Active Scripts Active Reported No Known Medications Prior To Admisstion (Info) Each 1 Each Vitals/I & O Vital Sign - Last 24 Hours 01/31/17 01/31/17 01/31/17 01/31/17 12:55 15:00 18:31 19:00 Temp 98.8 99.5 98.8 99.5 Pulse 100 115 Resp 16 16 16 18 B/P (MAP) 122/70 (87) 142/84 (103) Pulse Ox 96 97 97 96 O2 Delivery Room Air Room Air Room Air 01/31/17 01/31/17 01/31/17 01/31/17 19:31 19:41 19:59 20:47 Resp 16 16 18 Pulse Ox 96 96 96 O2 Delivery Room Air Room Air Room Air Room Air O2 Flow Rate 2.0 01/31/17 01/31/17 01/31/17 02/01/17 21:06 21:50 23:00 03:00 Temp 97.7 101.3 97.7 101.3 Pulse 105 121 Resp 18 20 20 B/P (MAP) 142/86 (104) 145/74 (97) Pulse Ox 96 96 95 96 O2 Delivery Room Air Room Air Room Air Room Air O2 Flow Rate 2.0 2.0 02/01/17 02/01/17 02/01/17 02/01/17 03:19 07:00 09:05 10:00 Temp 99.9 99.9 Pulse 113 Resp 18 20 16 14 B/P (MAP) 151/86 (107) Pulse Ox 95 98 96 95 O2 Delivery Room Air Room Air Room Air O2 Flow Rate 2.0 02/01/17 11:00 Temp 97.7 97.7 Pulse 144 Resp 20 B/P (MAP) 144/78 (100) Pulse Ox 94 O2 Delivery Room Air Intake and Output 01/31/17 01/31/17 02/01/17 15:00 23:00 07:00 Intake Total 1600 ml Output Total 3000 ml 1700 ml Balance -3000 ml -100 ml PATRICIA NAVARRETE III DO Feb 01, 2017 11:58
[2017-02-01 15:00] VITALS: BP 150/66
[2017-02-01] MEDS: RIVAROXABAN 10 MG TABLET. PO SCH (17:57)
[2017-02-01 19:00] VITALS: BP 129/63
[2017-02-01 23:01] VITALS: BP 141/84
[2017-02-02 02:54] VITALS: BP 141/82
[2017-02-02] MEDS: ACETAMINOPHEN 325 MG TABLET. PO PRN (03:10)
[2017-02-02] MEDS: IV NORMAL SALINE 1000ML BAG 1,000 ML IV SCH (03:11)
[2017-02-02 04:54] LABS: BASO % 0 % (0-3); EOS % 2 % (0-3); HEMOGLOBIN 9.2 g/dL (13.0-17.5); LYMPH # 1.1 x10^3/uL (1.0-4.8); LYMPH % 15 % (24-48); MEAN CORPUSCULAR HEMOGLOBIN 32 pg (25-35); MEAN CORPUSCULAR HGB CONC 34 g/dL (31-37); MEAN CORPUSCULAR VOLUME 94 fL (79-100); MONO % 10 % (0-9); NEUT % 72 % (31-73); PLATELET COUNT 172 x10^3/uL (140-400); RED BLOOD COUNT 2.88 x10^6/uL (4.30-5.70); RED CELL DISTRIBUTION WIDTH 11.7 % (11.5-14.5); WHITE BLOOD COUNT 7.3 x10^3/uL (4.0-11.0)
[2017-02-02 05:09] LABS: CALCIUM 7.5 mg/dL (8.5-10.1); CREATININE 1.4 mg/dL (0.7-1.3); GFR 67.2; POTASSIUM 3.9 mmol/L (3.5-5.1)
[2017-02-02] MEDS: CYCLOBENZAPRINE 10 MG TABLET. PO PRN ×2 (06:09→20:21)
[2017-02-02] MEDS: oxyCODONE IR 5 MG TABLET PO PRN ×3 (06:10→21:42)
[2017-02-02 07:00] VITALS: BP 153/64
[2017-02-02] MEDS: SENNOSIDES/DOCUSATE 8.6/50MG TABLET. PO SCH (09:00)
[2017-02-02] MEDS: POLYETHYLENE GLYCOL 3350 17 GM PACKET. PO SCH ×2 (09:00→21:00)
[2017-02-02] MEDS: HYDROcodone/APAP 7.5/325MG 1 TAB TABLET PO PRN ×2 (10:23→20:22)
[2017-02-02 11:00] VITALS: BP 136/79
--- NOTE | 2017-02-02 14:52 | PDOC ---
PROGRESS NOTES Subjective Subjective Problems overnight: Left thigh still swollen he is getting up and around much better had some drainage from the superior incision Objective Vital Signs Vital Signs Date Time Temp Pulse Resp B/P (MAP) Pulse Ox O2 Delivery O2 Flow Rate FiO2 02/02/17 11:23 20 96 Room Air 02/02/17 11:00 98.8 106 136/79 (98) 98.8 02/01/17 03:19 2.0 Physical Exam On examination both incisions look excellent with no redness or erythema left thigh is indeed quite swollen he has some serous drainage present from the proximal incision at the hip with no odor Distal neurovascular status intact minimal pain with toe touch weightbearing or motion Labs Laboratory Tests Test 02/01/17 05:55 02/02/17 04:40 Prothrombin Time 20.8 SEC (11.7-14.0) Prothromb Time International Ratio 1.9 (0.8-1.1) White Blood Count 7.3 x10^3/uL (4.0-11.0) Red Blood Count 2.88 x10^6/uL (4.30-5.70) Hemoglobin 9.2 g/dL (13.0-17.5) Hematocrit 27.0 % (39.0-53.0) Mean Corpuscular Volume 94 fL (79-100) Mean Corpuscular Hemoglobin 32 pg (25-35) Mean Corpuscular Hemoglobin Concent 34 g/dL (31-37) Red Cell Distribution Width 11.7 % (11.5-14.5) Platelet Count 172 x10^3/uL (140-400) Neutrophils (%) (Auto) 72 % (31-73) Lymphocytes (%) (Auto) 15 % (24-48) Monocytes (%) (Auto) 10 % (0-9) Eosinophils (%) (Auto) 2 % (0-3) Basophils (%) (Auto) 0 % (0-3) Neutrophils # (Auto) 5.2 x10^3uL (1.8-7.7) Lymphocytes # (Auto) 1.1 x10^3/uL (1.0-4.8) Monocytes # (Auto) 0.8 x10^3/uL (0.0-1.1) Eosinophils # (Auto) 0.2 x10^3/uL (0.0-0.7) Basophils # (Auto) 0.0 x10^3/uL (0.0-0.2) Sodium Level 140 mmol/L (136-145) Potassium Level 3.9 mmol/L (3.5-5.1) Chloride Level 104 mmol/L (98-107) Carbon Dioxide Level 31 mmol/L (21-32) Anion Gap 5 (6-14) Blood Urea Nitrogen 12 mg/dL (8-26) Creatinine 1.4 mg/dL (0.7-1.3) Estimated GFR (Cockcroft-Gault) 67.2 Glucose Level 110 mg/dL (70-99) Calcium Level 7.5 mg/dL (8.5-10.1) Laboratory Tests Test 02/02/17 04:40 White Blood Count 7.3 x10^3/uL (4.0-11.0) Red Blood Count 2.88 x10^6/uL (4.30-5.70) Hemoglobin 9.2 g/dL (13.0-17.5) Hematocrit 27.0 % (39.0-53.0) Mean Corpuscular Volume 94 fL (79-100) Mean Corpuscular Hemoglobin 32 pg (25-35) Mean Corpuscular Hemoglobin Concent 34 g/dL (31-37) Red Cell Distribution Width 11.7 % (11.5-14.5) Platelet Count 172 x10^3/uL (140-400) Neutrophils (%) (Auto) 72 % (31-73) Lymphocytes (%) (Auto) 15 % (24-48) Monocytes (%) (Auto) 10 % (0-9) Eosinophils (%) (Auto) 2 % (0-3) Basophils (%) (Auto) 0 % (0-3) Neutrophils # (Auto) 5.2 x10^3uL (1.8-7.7) Lymphocytes # (Auto) 1.1 x10^3/uL (1.0-4.8) Monocytes # (Auto) 0.8 x10^3/uL (0.0-1.1) Eosinophils # (Auto) 0.2 x10^3/uL (0.0-0.7) Basophils # (Auto) 0.0 x10^3/uL (0.0-0.2) Sodium Level 140 mmol/L (136-145) Potassium Level 3.9 mmol/L (3.5-5.1) Chloride Level 104 mmol/L (98-107) Carbon Dioxide Level 31 mmol/L (21-32) Anion Gap 5 (6-14) Blood Urea Nitrogen 12 mg/dL (8-26) Creatinine 1.4 mg/dL (0.7-1.3) Estimated GFR (Cockcroft-Gault) 67.2 Glucose Level 110 mg/dL (70-99) Calcium Level 7.5 mg/dL (8.5-10.1) Assessment Assessment POD# [4], S/P [ORIF left femur shaft fracture] Problems: Plan Plan of Care Continue mobilize toe touch weightbearing left lower extremity Reinforced proximal hip incision Stable from orthopedic standpoint but continues to be treated for some pneumonia medically BRITNI BURCIAGA MD Feb 02, 2017 14:52
--- NOTE | 2017-02-02 14:55 | PDOC ---
PROGRESS NOTES Chief Complaint Chief Complaint (1) Femoral fracture (2) Mild anemia (3) Hyperglycemia (4) Elevated creatine (5) Post-op leg pain (6) Narcotic induced constipation PLAN: fu ortho pain control on ceftriaxone for pna fever, dc when no fever History of Present Illness History of Present Illness Patient is continuing to do well this AM. Resting comfortably on the bed. No acute complaints still fever Vitals Vitals Vital Signs Date Time Temp Pulse Resp B/P (MAP) Pulse Ox O2 Delivery O2 Flow Rate FiO2 02/02/17 11:23 20 96 Room Air 02/02/17 11:00 98.8 106 136/79 (98) 98.8 Physical Exam General: Alert, Oriented X3, Cooperative, No acute distress Heart: Regular rate Lungs: Clear Abdomen: Soft, No tenderness Extremities: No clubbing, No cyanosis, Normal pulses, Other (left leg with dital femur incision covered with gauze. anterior thigh swellnig improved) Skin: No rashes, Other (Bandage is clean dry and intact) Labs LABS Laboratory Tests Test 02/02/17 04:40 White Blood Count 7.3 x10^3/uL (4.0-11.0) Red Blood Count 2.88 x10^6/uL (4.30-5.70) Hemoglobin 9.2 g/dL (13.0-17.5) Hematocrit 27.0 % (39.0-53.0) Mean Corpuscular Volume 94 fL (79-100) Mean Corpuscular Hemoglobin 32 pg (25-35) Mean Corpuscular Hemoglobin Concent 34 g/dL (31-37) Red Cell Distribution Width 11.7 % (11.5-14.5) Platelet Count 172 x10^3/uL (140-400) Neutrophils (%) (Auto) 72 % (31-73) Lymphocytes (%) (Auto) 15 % (24-48) Monocytes (%) (Auto) 10 % (0-9) Eosinophils (%) (Auto) 2 % (0-3) Basophils (%) (Auto) 0 % (0-3) Neutrophils # (Auto) 5.2 x10^3uL (1.8-7.7) Lymphocytes # (Auto) 1.1 x10^3/uL (1.0-4.8) Monocytes # (Auto) 0.8 x10^3/uL (0.0-1.1) Eosinophils # (Auto) 0.2 x10^3/uL (0.0-0.7) Basophils # (Auto) 0.0 x10^3/uL (0.0-0.2) Sodium Level 140 mmol/L (136-145) Potassium Level 3.9 mmol/L (3.5-5.1) Chloride Level 104 mmol/L (98-107) Carbon Dioxide Level 31 mmol/L (21-32) Anion Gap 5 (6-14) Blood Urea Nitrogen 12 mg/dL (8-26) Creatinine 1.4 mg/dL (0.7-1.3) Estimated GFR (Cockcroft-Gault) 67.2 Glucose Level 110 mg/dL (70-99) Calcium Level 7.5 mg/dL (8.5-10.1) Review of Systems Review of Systems no fever, chills, sob or chest pain Assessment and Plan Assessmemt and Plan Problems Medical Problems: (1) Right femoral fracture Status: Acute Problems: Comment Review of Relevant I have reviewed the following items ivette (where applicable) has been applied. Labs Laboratory Tests Test 02/01/17 05:55 02/02/17 04:40 Prothrombin Time 20.8 SEC (11.7-14.0) Prothromb Time International Ratio 1.9 (0.8-1.1) White Blood Count 7.3 x10^3/uL (4.0-11.0) Red Blood Count 2.88 x10^6/uL (4.30-5.70) Hemoglobin 9.2 g/dL (13.0-17.5) Hematocrit 27.0 % (39.0-53.0) Mean Corpuscular Volume 94 fL (79-100) Mean Corpuscular Hemoglobin 32 pg (25-35) Mean Corpuscular Hemoglobin Concent 34 g/dL (31-37) Red Cell Distribution Width 11.7 % (11.5-14.5) Platelet Count 172 x10^3/uL (140-400) Neutrophils (%) (Auto) 72 % (31-73) Lymphocytes (%) (Auto) 15 % (24-48) Monocytes (%) (Auto) 10 % (0-9) Eosinophils (%) (Auto) 2 % (0-3) Basophils (%) (Auto) 0 % (0-3) Neutrophils # (Auto) 5.2 x10^3uL (1.8-7.7) Lymphocytes # (Auto) 1.1 x10^3/uL (1.0-4.8) Monocytes # (Auto) 0.8 x10^3/uL (0.0-1.1) Eosinophils # (Auto) 0.2 x10^3/uL (0.0-0.7) Basophils # (Auto) 0.0 x10^3/uL (0.0-0.2) Sodium Level 140 mmol/L (136-145) Potassium Level 3.9 mmol/L (3.5-5.1) Chloride Level 104 mmol/L (98-107) Carbon Dioxide Level 31 mmol/L (21-32) Anion Gap 5 (6-14) Blood Urea Nitrogen 12 mg/dL (8-26) Creatinine 1.4 mg/dL (0.7-1.3) Estimated GFR (Cockcroft-Gault) 67.2 Glucose Level 110 mg/dL (70-99) Calcium Level 7.5 mg/dL (8.5-10.1) Laboratory Tests Test 02/02/17 04:40 White Blood Count 7.3 x10^3/uL (4.0-11.0) Red Blood Count 2.88 x10^6/uL (4.30-5.70) Hemoglobin 9.2 g/dL (13.0-17.5) Hematocrit 27.0 % (39.0-53.0) Mean Corpuscular Volume 94 fL (79-100) Mean Corpuscular Hemoglobin 32 pg (25-35) Mean Corpuscular Hemoglobin Concent 34 g/dL (31-37) Red Cell Distribution Width 11.7 % (11.5-14.5) Platelet Count 172 x10^3/uL (140-400) Neutrophils (%) (Auto) 72 % (31-73) Lymphocytes (%) (Auto) 15 % (24-48) Monocytes (%) (Auto) 10 % (0-9) Eosinophils (%) (Auto) 2 % (0-3) Basophils (%) (Auto) 0 % (0-3) Neutrophils # (Auto) 5.2 x10^3uL (1.8-7.7) Lymphocytes # (Auto) 1.1 x10^3/uL (1.0-4.8) Monocytes # (Auto) 0.8 x10^3/uL (0.0-1.1) Eosinophils # (Auto) 0.2 x10^3/uL (0.0-0.7) Basophils # (Auto) 0.0 x10^3/uL (0.0-0.2) Sodium Level 140 mmol/L (136-145) Potassium Level 3.9 mmol/L (3.5-5.1) Chloride Level 104 mmol/L (98-107) Carbon Dioxide Level 31 mmol/L (21-32) Anion Gap 5 (6-14) Blood Urea Nitrogen 12 mg/dL (8-26) Creatinine 1.4 mg/dL (0.7-1.3) Estimated GFR (Cockcroft-Gault) 67.2 Glucose Level 110 mg/dL (70-99) Calcium Level 7.5 mg/dL (8.5-10.1) Microbiology 01/31/17 Blood Culture - Preliminary, Resulted NO GROWTH AFTER 2 DAYS Medications Current Medications Hydromorphone HCl (Dilaudid) 2 mg STK-MED ONCE .ROUTE ; Start 01/28/17 at 21:14 ; Stop 01/28/17 at 21:15; Status DC Hydromorphone HCl (Dilaudid) 0.5 mg PRN Q15MIN PRN IV/SQ PAIN GREATER THAN 3/ 10 Last administered on 01/28/17 22:57; Start 01/28/17 at 21:15; Stop 01/29/17 at 21:14; Status DC Sodium Chloride 1,000 ml @ 1,000 mls/hr Q1H IV Last administered on 01/28/17 21:30; Start 01/28/17 at 21:30; Stop 01/28/17 at 22:29; Status DC Morphine Sulfate 4 mg PRN Q2HR PRN IV SEVERE PAIN Last administered on 21:38; Start 01/29/17 at 00:00; Stop 01/29/17 at 23:59; Status DC Sodium Chloride 1,000 ml @ 125 mls/hr Q8H IV Last administered on 01/29/17 01 :47; Start 01/29/17 at 00:00; Stop 01/29/17 at 00:01; Status DC Sodium Chloride 1,000 ml @ 50 mls/hr Q20H IV Last administered on 02/02/17t 03 :11; Start 01/29/17 at 02:30 Lidocaine HCl (Lidocaine Pf 2% Vial) 5 ml STK-MED ONCE .ROUTE ; Start 01/29/17 at 08:11; Stop 01/29/17 at 08:12; Status DC Propofol 20 ml @ As Directed STK-MED ONCE IV ; Start 01/29/17 at 08:11; Stop 06/07 at 08:12; Status DC Fentanyl Citrate (Fentanyl 2ml Vial) 100 mcg STK-MED ONCE .ROUTE ; Start at 08:11; Stop 01/29/17 at 08:12; Status DC Fentanyl Citrate (Fentanyl 2ml Vial) 100 mcg STK-MED ONCE .ROUTE ; Start at 08:38; Stop 01/29/17 at 08:39; Status DC Ondansetron HCl (Zofran) 4 mg PRN Q6HRS PRN IV NAUSEA/VOMITING; Start 01/29/17 at 08:45; Stop 01/29/17 at 18:00; Status DC Fentanyl Citrate (Fentanyl 2ml Vial) 25 mcg PRN Q5MIN PRN IV MILD PAIN; Start 01/29/17 at 08:45; Stop 01/29/17 at 18:00; Status DC Fentanyl Citrate (Fentanyl 2ml Vial) 50 mcg PRN Q5MIN PRN IV MODERATE PAIN Last administered on 01/29/17t 12:35; Start 01/29/17 at 08:45; Stop 01/29/17 at 18:00; Status DC Morphine Sulfate 1 mg PRN Q10MIN PRN IV SEVERE PAIN; Start 01/29/17 at 08:45; Stop 01/29/17 at 18:00; Status DC Ringer's Solution 1,000 ml @ 30 mls/hr Q24H IV ; Start 01/29/17 at 08:43; Stop 01/29/17 at 20:42; Status DC Lidocaine HCl 2 ml PRN 1X PRN ID PRIOR TO IV START; Start 01/29/17 at 08:45; Stop 01/29/17 at 18:00; Status DC Hydromorphone HCl (Dilaudid) 0.5 mg PRN Q10MIN PRN IV SEV PAIN, Second choice Last administered on 01/29/17 13:28; Start 01/29/17 at 08:45; Stop 01/29/17 at 18:00; Status DC Prochlorperazine Edisylate (Compazine) 5 mg PACU PRN PRN IV NAUSEA, MRX1; Start 01/29/17 at 08:45; Stop 01/29/17 at 18:00; Status DC Cefazolin Sodium/ Dextrose 50 ml @ 100 mls/hr 1X PREOP PRN IV PRE OP DOSE Last administered on 01/29/17 11:05; Start 01/29/17 at 10:15; Stop 01/29/17 at 18:00; Status DC Dexamethasone Sodium Phosphate (Decadron) 20 mg STK-MED ONCE .ROUTE ; Start 06/07 at 10:58; Stop 01/29/17 at 10:59; Status DC Sevoflurane (Ultane) 60 ml STK-MED ONCE IH ; Start 01/29/17 at 10:58; Stop 01/29 at 10:59; Status DC Ondansetron HCl (Zofran) 4 mg STK-MED ONCE .ROUTE ; Start 01/29/17 at 11:24; Stop 01/29/17 at 11:25; Status DC Oxycodone HCl (Roxicodone) 5 mg PRN Q3HRS PRN PO PAIN Last administered on 01/30 10:10; Start 01/29/17 at 13:00; Stop 01/30/17 at 19:16; Status DC Morphine Sulfate 2 mg PRN Q1HR PRN IV PAIN Last administered on 01/30/17 14:52 ; Start 01/29/17 at 13:00 Fentanyl Citrate (Fentanyl 2ml Vial) 25 mcg PRN Q1HR PRN IV PAIN; Start at 13:00 Senna/Docusate Sodium (Senna Plus) 1 tab DAILY PO Last administered on 09:05; Start 01/29/17 at 14:00 Polyethylene Glycol (miraLAX PACKET) 17 gm PRN DAILY PRN PO CONSTIPATION; Start 01/29/17 at 13:00 Ondansetron HCl (Zofran) 4 mg PRN Q4HRS PRN IV NAUSEA/VOMITING; Start 01/29/17 at 13:00 Warfarin Sodium (Coumadin) 7.5 mg 1X ONCE PO Last administered on 01/29/17 17 :44; Start 01/29/17 at 16:00; Stop 01/29/17 at 16:01; Status DC Warfarin Sodium (Coumadin Per Pharmacy) 1 each PRN DAILY PRN MC SEE COMMENTS Last administered on 01/31/17 10:17; Start 01/30/17 at 13:00; Stop 01/31/17 at 11:33; Status DC Magnesium Hydroxide (Milk Of Magnesia) 2,400 mg 1X PRN PRN PO CONSTIPATION; Start 01/30/17 at 06:00; Stop 01/31/17 at 05:59; Status DC Bisacodyl (Dulcolax Supp) 10 mg 1X PRN PRN IN CONSTIPATION; Start 01/30/17 at 16:00; Stop 01/31/17 at 15:59; Status DC Acetaminophen/ Hydrocodone Bitart (Lortab 7.5/325) 1 tab PRN Q4HRS PRN PO PAIN ; Start 01/29/17 at 13:00 Morphine Sulfate 4 mg PRN Q2HR PRN IV PAIN Last administered on 01/31/17 21:06 ; Start 01/29/17 at 13:00 Acetaminophen/ Hydrocodone Bitart (Lortab 7.5/325) 2 tab PRN Q4HRS PRN PO PAIN Last administered on 02/02/17 10:23; Start 01/29/17 at 13:00 Dextrose (Dextrose 50%-Water Syringe) 12.5 gm PRN Q15MIN PRN IV SEE COMMENTS; Start 01/29/17 at 13:00 Cefazolin Sodium/ Dextrose 50 ml @ 100 mls/hr Q6H IV Last administered on 01/30 06:13; Start 01/29/17 at 18:00; Stop 01/30/17 at 06:29; Status DC Enoxaparin Sodium (Lovenox 40mg Syringe) 40 mg Q24H SQ Last administered on 10:10; Start 01/30/17 at 07:00; Stop 01/31/17 at 12:00; Status DC Polyethylene Glycol (miraLAX PACKET) 17 gm BID PO Last administered on 21:49; Start 01/29/17 at 21:00 Warfarin Sodium (Coumadin) 5 mg 1X WARF ONCE PO Last administered on 18:23; Start 01/30/17 at 16:00; Stop 01/30/17 at 16:01; Status DC Oxycodone HCl (Roxicodone) 10 mg PRN Q3HRS PRN PO PAIN Last administered on 06:10; Start 01/30/17 at 19:15 Cyclobenzaprine HCl (Flexeril) 10 mg PRN Q6HRS PRN PO MUSCLE SPASMS Last administered on 02/02/17 06:09; Start 01/30/17 at 19:15 Acetaminophen (Tylenol) 650 mg PRN Q4HRS PRN PO FEVER Last administered on 02/02 03:10; Start 01/31/17 at 04:15 Warfarin Sodium (Coumadin) 3 mg 1X WARF ONCE PO ; Start 01/31/17 at 16:00; Stop 01/31/17 at 16:01; Status Cancel Rivaroxaban (Xarelto) 10 mg DAILYWSUP PO Last administered on 02/01/17 17:57; Start 01/31/17 at 17:00; Stop 02/27/17 at 17:01 Info (Anti-Coagulation Monitoring By Pharmacy) 1 each PRN DAILY PRN MC SEE COMMENTS Last administered on 02/01/17 13:04; Start 01/31/17 at 11:45; Stop at 12:53; Status DC Diphenhydramine HCl (Benadryl) 25 mg 1X ONCE PO Last administered on 21:06; Start 01/31/17 at 21:00; Stop 01/31/17 at 21:01; Status DC Ceftriaxone Sodium 1 gm/ Sodium Chloride 50 ml @ 100 mls/hr Q24H IV Last administered on 02/02/17 13:10; Start 02/01/17 at 12:30 Active Scripts Active Reported No Known Medications Prior To Admisstion (Info) Each 1 Each Vitals/I & O Vital Sign - Last 24 Hours 02/01/17 02/01/17 02/01/17 02/01/17 15:00 15:44 19:00 20:40 Temp 97.6 99.9 97.6 99.9 Pulse 128 117 Resp 22 16 16 B/P (MAP) 150/66 (94) 129/63 (85) Pulse Ox 96 96 95 O2 Delivery Room Air Room Air Room Air Room Air 02/01/17 02/01/17 02/02/17 02/02/17 22:04 23:01 02:54 06:10 Temp 100.6 101.5 100.6 101.5 Pulse 114 121 Resp 16 16 18 16 B/P (MAP) 141/84 (103) 141/82 (101) Pulse Ox 99 96 O2 Delivery Room Air Room Air Room Air 02/02/17 02/02/17 02/02/17 02/02/17 07:00 07:10 10:23 11:00 Temp 99.0 98.8 99.0 98.8 Pulse 107 106 Resp 20 18 20 20 B/P (MAP) 153/64 (93) 136/79 (98) Pulse Ox 98 98 98 O2 Delivery Room Air Room Air Room Air Room Air 02/02/17 11:23 Resp 20 Pulse Ox 96 O2 Delivery Room Air Intake and Output 02/01/17 02/01/17 02/02/17 15:00 23:00 07:00 Intake Total 2214 ml Output Total 3000 ml 1650 ml Balance -3000 ml 564 ml JEANNINE HUGHES MD Feb 02, 2017 14:55
[2017-02-02 15:00] VITALS: BP 122/70
[2017-02-02] MEDS: RIVAROXABAN 10 MG TABLET. PO SCH (17:34)
[2017-02-02 19:05] VITALS: BP 134/71
[2017-02-02] MEDS: FERROUS SULFATE 325 MG TABLET. PO SCH (20:21)
[2017-02-02 22:48] VITALS: BP 127/69
[2017-02-02] MEDS: MORPHINE SULFATE 4 MG/ML DISP.SYRIN. IV PRN (23:40)
[2017-02-03] MEDS: HYDROcodone/APAP 7.5/325MG 1 TAB TABLET PO PRN ×3 (02:31→21:48)
[2017-02-03] MEDS: IV NORMAL SALINE 1000ML BAG 1,000 ML IV SCH (02:34)
[2017-02-03] MEDS: MORPHINE SULFATE 4 MG/ML DISP.SYRIN. IV PRN (02:36)
[2017-02-03 03:04] VITALS: BP 136/78
[2017-02-03] MEDS: CYCLOBENZAPRINE 10 MG TABLET. PO PRN ×2 (06:06→21:48)
[2017-02-03] MEDS: oxyCODONE IR 5 MG TABLET PO PRN ×4 (06:06→21:50)
[2017-02-03 06:20] LABS: BASO % 1 % (0-3); EOS % 3 % (0-3); HEMATOCRIT 25.8 % (39.0-53.0); HEMOGLOBIN 8.8 g/dL (13.0-17.5); LYMPH # 1.1 x10^3/uL (1.0-4.8); LYMPH % 18 % (24-48); MEAN CORPUSCULAR HEMOGLOBIN 32 pg (25-35); MEAN CORPUSCULAR HGB CONC 34 g/dL (31-37); MEAN CORPUSCULAR VOLUME 93 fL (79-100); MONO % 10 % (0-9); NEUT % 69 % (31-73); PLATELET COUNT 223 x10^3/uL (140-400); RED BLOOD COUNT 2.77 x10^6/uL (4.30-5.70); RED CELL DISTRIBUTION WIDTH 12.2 % (11.5-14.5); WHITE BLOOD COUNT 6.3 x10^3/uL (4.0-11.0)
[2017-02-03 06:36] LABS: CALCIUM 7.7 mg/dL (8.5-10.1); CREATININE 1.3 mg/dL (0.7-1.3); GFR 73.3; POTASSIUM 3.6 mmol/L (3.5-5.1)
[2017-02-03 07:00] VITALS: BP 137/84
--- NOTE | 2017-02-03 07:48 | PDOC ---
PROGRESS NOTES Subjective Subjective Problems overnight: Getting around a bit better left thigh still swollen Objective Vital Signs Vital Signs Date Time Temp Pulse Resp B/P (MAP) Pulse Ox O2 Delivery O2 Flow Rate FiO2 02/03/17 07:00 97.9 105 20 137/84 (101) 95 Room Air 97.9 02/01/17 03:19 2.0 Physical Exam Serous drainage decreased from proximal incision no redness or erythema distal neurovascular status intact thigh compartments soft Labs Laboratory Tests Test 02/02/17 04:40 02/03/17 05:45 White Blood Count 7.3 x10^3/uL (4.0-11.0) 6.3 x10^3/uL (4.0-11.0) Red Blood Count 2.88 x10^6/uL (4.30-5.70) 2.77 x10^6/uL (4.30-5.70) Hemoglobin 9.2 g/dL (13.0-17.5) 8.8 g/dL (13.0-17.5) Hematocrit 27.0 % (39.0-53.0) 25.8 % (39.0-53.0) Mean Corpuscular Volume 94 fL (79-100) 93 fL (79-100) Mean Corpuscular Hemoglobin 32 pg (25-35) 32 pg (25-35) Mean Corpuscular Hemoglobin Concent 34 g/dL (31-37) 34 g/dL (31-37) Red Cell Distribution Width 11.7 % (11.5-14.5) 12.2 % (11.5-14.5) Platelet Count 172 x10^3/uL (140-400) 223 x10^3/uL (140-400) Neutrophils (%) (Auto) 72 % (31-73) 69 % (31-73) Lymphocytes (%) (Auto) 15 % (24-48) 18 % (24-48) Monocytes (%) (Auto) 10 % (0-9) 10 % (0-9) Eosinophils (%) (Auto) 2 % (0-3) 3 % (0-3) Basophils (%) (Auto) 0 % (0-3) 1 % (0-3) Neutrophils # (Auto) 5.2 x10^3uL (1.8-7.7) 4.4 x10^3uL (1.8-7.7) Lymphocytes # (Auto) 1.1 x10^3/uL (1.0-4.8) 1.1 x10^3/uL (1.0-4.8) Monocytes # (Auto) 0.8 x10^3/uL (0.0-1.1) 0.6 x10^3/uL (0.0-1.1) Eosinophils # (Auto) 0.2 x10^3/uL (0.0-0.7) 0.2 x10^3/uL (0.0-0.7) Basophils # (Auto) 0.0 x10^3/uL (0.0-0.2) 0.0 x10^3/uL (0.0-0.2) Sodium Level 140 mmol/L (136-145) 139 mmol/L (136-145) Potassium Level 3.9 mmol/L (3.5-5.1) 3.6 mmol/L (3.5-5.1) Chloride Level 104 mmol/L (98-107) 102 mmol/L (98-107) Carbon Dioxide Level 31 mmol/L (21-32) 30 mmol/L (21-32) Anion Gap 5 (6-14) 7 (6-14) Blood Urea Nitrogen 12 mg/dL (8-26) 14 mg/dL (8-26) Creatinine 1.4 mg/dL (0.7-1.3) 1.3 mg/dL (0.7-1.3) Estimated GFR (Cockcroft-Gault) 67.2 73.3 Glucose Level 110 mg/dL (70-99) 104 mg/dL (70-99) Calcium Level 7.5 mg/dL (8.5-10.1) 7.7 mg/dL (8.5-10.1) Laboratory Tests Test 02/03/17 05:45 White Blood Count 6.3 x10^3/uL (4.0-11.0) Red Blood Count 2.77 x10^6/uL (4.30-5.70) Hemoglobin 8.8 g/dL (13.0-17.5) Hematocrit 25.8 % (39.0-53.0) Mean Corpuscular Volume 93 fL (79-100) Mean Corpuscular Hemoglobin 32 pg (25-35) Mean Corpuscular Hemoglobin Concent 34 g/dL (31-37) Red Cell Distribution Width 12.2 % (11.5-14.5) Platelet Count 223 x10^3/uL (140-400) Neutrophils (%) (Auto) 69 % (31-73) Lymphocytes (%) (Auto) 18 % (24-48) Monocytes (%) (Auto) 10 % (0-9) Eosinophils (%) (Auto) 3 % (0-3) Basophils (%) (Auto) 1 % (0-3) Neutrophils # (Auto) 4.4 x10^3uL (1.8-7.7) Lymphocytes # (Auto) 1.1 x10^3/uL (1.0-4.8) Monocytes # (Auto) 0.6 x10^3/uL (0.0-1.1) Eosinophils # (Auto) 0.2 x10^3/uL (0.0-0.7) Basophils # (Auto) 0.0 x10^3/uL (0.0-0.2) Sodium Level 139 mmol/L (136-145) Potassium Level 3.6 mmol/L (3.5-5.1) Chloride Level 102 mmol/L (98-107) Carbon Dioxide Level 30 mmol/L (21-32) Anion Gap 7 (6-14) Blood Urea Nitrogen 14 mg/dL (8-26) Creatinine 1.3 mg/dL (0.7-1.3) Estimated GFR (Cockcroft-Gault) 73.3 Glucose Level 104 mg/dL (70-99) Calcium Level 7.7 mg/dL (8.5-10.1) Assessment Assessment POD# [], S/P [ORIF left femur shaft fracture] Problems: Plan Plan of Care Continue mobilize toe touch weightbearing Xarelto anticoagulation Stable from orthopedic standpoint BRITNI BURCIAGA MD Feb 03, 2017 07:48
[2017-02-03] MEDS: POLYETHYLENE GLYCOL 3350 17 GM PACKET. PO SCH ×2 (08:48→21:49)
[2017-02-03] MEDS: SENNOSIDES/DOCUSATE 8.6/50MG TABLET. PO SCH ×2 (08:48→21:00)
[2017-02-03] MEDS: FERROUS SULFATE 325 MG TABLET. PO SCH (08:48)
[2017-02-03 11:00] VITALS: BP 123/67
[2017-02-03] MEDS: DOCUSATE SODIUM 100 MG CAPSULE. PO SCH (12:45)
[2017-02-03] MEDS: oxyCODONE ER 15 MG TAB.ER.12H PO SCH ×2 (12:46→21:49)
--- NOTE | 2017-02-03 13:50 | PDOC ---
PROGRESS NOTES Chief Complaint Chief Complaint (1) Femoral fracture s/p sx (2) Mild anemia post op expected (3) Hyperglycemia (4) Elevated creatine (5) Post-op leg pain (6) Narcotic induced constipation fever, no cough, but + cxr, could be 2/2 post sx PLAN: fu ortho, stable from ortho standpoint altho still swelling and has some drainage on ceftriaxone for pna? add oxycontin, cont oxycodone prn. DC Ivf fever, dc when no fever add stool softner add iron po hope dc soon, cont AC for dvt ppx as per ortho History of Present Illness History of Present Illness still fever, low grade yesterday no cough c/o left fx leg swelling and pain, taking pain meds frequently Vitals Vitals Vital Signs Date Time Temp Pulse Resp B/P (MAP) Pulse Ox O2 Delivery O2 Flow Rate FiO2 02/03/17 11:00 100.0 102 20 123/67 (85) 94 Room Air 100.0 Physical Exam General: Alert, Oriented X3, Cooperative, No acute distress Heart: Regular rate Lungs: Clear Abdomen: Soft, No tenderness Extremities: No clubbing, No cyanosis, Normal pulses, Other (left leg with dital femur incision covered with gauze. anterior thigh swellnig improved) Skin: No rashes, Other (Bandage is clean dry and intact) Labs LABS Laboratory Tests Test 02/03/17 05:45 White Blood Count 6.3 x10^3/uL (4.0-11.0) Red Blood Count 2.77 x10^6/uL (4.30-5.70) Hemoglobin 8.8 g/dL (13.0-17.5) Hematocrit 25.8 % (39.0-53.0) Mean Corpuscular Volume 93 fL (79-100) Mean Corpuscular Hemoglobin 32 pg (25-35) Mean Corpuscular Hemoglobin Concent 34 g/dL (31-37) Red Cell Distribution Width 12.2 % (11.5-14.5) Platelet Count 223 x10^3/uL (140-400) Neutrophils (%) (Auto) 69 % (31-73) Lymphocytes (%) (Auto) 18 % (24-48) Monocytes (%) (Auto) 10 % (0-9) Eosinophils (%) (Auto) 3 % (0-3) Basophils (%) (Auto) 1 % (0-3) Neutrophils # (Auto) 4.4 x10^3uL (1.8-7.7) Lymphocytes # (Auto) 1.1 x10^3/uL (1.0-4.8) Monocytes # (Auto) 0.6 x10^3/uL (0.0-1.1) Eosinophils # (Auto) 0.2 x10^3/uL (0.0-0.7) Basophils # (Auto) 0.0 x10^3/uL (0.0-0.2) Sodium Level 139 mmol/L (136-145) Potassium Level 3.6 mmol/L (3.5-5.1) Chloride Level 102 mmol/L (98-107) Carbon Dioxide Level 30 mmol/L (21-32) Anion Gap 7 (6-14) Blood Urea Nitrogen 14 mg/dL (8-26) Creatinine 1.3 mg/dL (0.7-1.3) Estimated GFR (Cockcroft-Gault) 73.3 Glucose Level 104 mg/dL (70-99) Calcium Level 7.7 mg/dL (8.5-10.1) Review of Systems Review of Systems no fever, chills, sob or chest pain Assessment and Plan Assessmemt and Plan Problems Medical Problems: (1) Right femoral fracture Status: Acute Problems: Comment Review of Relevant I have reviewed the following items ivette (where applicable) has been applied. Labs Laboratory Tests Test 02/02/17 04:40 02/03/17 05:45 White Blood Count 7.3 x10^3/uL (4.0-11.0) 6.3 x10^3/uL (4.0-11.0) Red Blood Count 2.88 x10^6/uL (4.30-5.70) 2.77 x10^6/uL (4.30-5.70) Hemoglobin 9.2 g/dL (13.0-17.5) 8.8 g/dL (13.0-17.5) Hematocrit 27.0 % (39.0-53.0) 25.8 % (39.0-53.0) Mean Corpuscular Volume 94 fL (79-100) 93 fL (79-100) Mean Corpuscular Hemoglobin 32 pg (25-35) 32 pg (25-35) Mean Corpuscular Hemoglobin Concent 34 g/dL (31-37) 34 g/dL (31-37) Red Cell Distribution Width 11.7 % (11.5-14.5) 12.2 % (11.5-14.5) Platelet Count 172 x10^3/uL (140-400) 223 x10^3/uL (140-400) Neutrophils (%) (Auto) 72 % (31-73) 69 % (31-73) Lymphocytes (%) (Auto) 15 % (24-48) 18 % (24-48) Monocytes (%) (Auto) 10 % (0-9) 10 % (0-9) Eosinophils (%) (Auto) 2 % (0-3) 3 % (0-3) Basophils (%) (Auto) 0 % (0-3) 1 % (0-3) Neutrophils # (Auto) 5.2 x10^3uL (1.8-7.7) 4.4 x10^3uL (1.8-7.7) Lymphocytes # (Auto) 1.1 x10^3/uL (1.0-4.8) 1.1 x10^3/uL (1.0-4.8) Monocytes # (Auto) 0.8 x10^3/uL (0.0-1.1) 0.6 x10^3/uL (0.0-1.1) Eosinophils # (Auto) 0.2 x10^3/uL (0.0-0.7) 0.2 x10^3/uL (0.0-0.7) Basophils # (Auto) 0.0 x10^3/uL (0.0-0.2) 0.0 x10^3/uL (0.0-0.2) Sodium Level 140 mmol/L (136-145) 139 mmol/L (136-145) Potassium Level 3.9 mmol/L (3.5-5.1) 3.6 mmol/L (3.5-5.1) Chloride Level 104 mmol/L (98-107) 102 mmol/L (98-107) Carbon Dioxide Level 31 mmol/L (21-32) 30 mmol/L (21-32) Anion Gap 5 (6-14) 7 (6-14) Blood Urea Nitrogen 12 mg/dL (8-26) 14 mg/dL (8-26) Creatinine 1.4 mg/dL (0.7-1.3) 1.3 mg/dL (0.7-1.3) Estimated GFR (Cockcroft-Gault) 67.2 73.3 Glucose Level 110 mg/dL (70-99) 104 mg/dL (70-99) Calcium Level 7.5 mg/dL (8.5-10.1) 7.7 mg/dL (8.5-10.1) Laboratory Tests Test 02/03/17 05:45 White Blood Count 6.3 x10^3/uL (4.0-11.0) Red Blood Count 2.77 x10^6/uL (4.30-5.70) Hemoglobin 8.8 g/dL (13.0-17.5) Hematocrit 25.8 % (39.0-53.0) Mean Corpuscular Volume 93 fL (79-100) Mean Corpuscular Hemoglobin 32 pg (25-35) Mean Corpuscular Hemoglobin Concent 34 g/dL (31-37) Red Cell Distribution Width 12.2 % (11.5-14.5) Platelet Count 223 x10^3/uL (140-400) Neutrophils (%) (Auto) 69 % (31-73) Lymphocytes (%) (Auto) 18 % (24-48) Monocytes (%) (Auto) 10 % (0-9) Eosinophils (%) (Auto) 3 % (0-3) Basophils (%) (Auto) 1 % (0-3) Neutrophils # (Auto) 4.4 x10^3uL (1.8-7.7) Lymphocytes # (Auto) 1.1 x10^3/uL (1.0-4.8) Monocytes # (Auto) 0.6 x10^3/uL (0.0-1.1) Eosinophils # (Auto) 0.2 x10^3/uL (0.0-0.7) Basophils # (Auto) 0.0 x10^3/uL (0.0-0.2) Sodium Level 139 mmol/L (136-145) Potassium Level 3.6 mmol/L (3.5-5.1) Chloride Level 102 mmol/L (98-107) Carbon Dioxide Level 30 mmol/L (21-32) Anion Gap 7 (6-14) Blood Urea Nitrogen 14 mg/dL (8-26) Creatinine 1.3 mg/dL (0.7-1.3) Estimated GFR (Cockcroft-Gault) 73.3 Glucose Level 104 mg/dL (70-99) Calcium Level 7.7 mg/dL (8.5-10.1) Microbiology 01/31/17 Blood Culture - Preliminary, Resulted NO GROWTH AFTER 3 DAYS Medications Current Medications Hydromorphone HCl (Dilaudid) 2 mg STK-MED ONCE .ROUTE ; Start 01/28/17 at 21:14 ; Stop 01/28/17 at 21:15; Status DC Hydromorphone HCl (Dilaudid) 0.5 mg PRN Q15MIN PRN IV/SQ PAIN GREATER THAN 3/ 10 Last administered on 01/28/17 22:57; Start 01/28/17 at 21:15; Stop 01/29/17 at 21:14; Status DC Sodium Chloride 1,000 ml @ 1,000 mls/hr Q1H IV Last administered on 01/28/17 21:30; Start 01/28/17 at 21:30; Stop 01/28/17 at 22:29; Status DC Morphine Sulfate 4 mg PRN Q2HR PRN IV SEVERE PAIN Last administered on 21:38; Start 01/29/17 at 00:00; Stop 01/29/17 at 23:59; Status DC Sodium Chloride 1,000 ml @ 125 mls/hr Q8H IV Last administered on 01/29/17 01 :47; Start 01/29/17 at 00:00; Stop 01/29/17 at 00:01; Status DC Sodium Chloride 1,000 ml @ 50 mls/hr Q20H IV Last administered on 02/03/17 02 :34; Start 01/29/17 at 02:30; Stop 02/03/17 at 12:07; Status DC Lidocaine HCl (Lidocaine Pf 2% Vial) 5 ml STK-MED ONCE .ROUTE ; Start 01/29/17 at 08:11; Stop 01/29/17 at 08:12; Status DC Propofol 20 ml @ As Directed STK-MED ONCE IV ; Start 01/29/17 at 08:11; Stop 06/07 at 08:12; Status DC Fentanyl Citrate (Fentanyl 2ml Vial) 100 mcg STK-MED ONCE .ROUTE ; Start at 08:11; Stop 01/29/17 at 08:12; Status DC Fentanyl Citrate (Fentanyl 2ml Vial) 100 mcg STK-MED ONCE .ROUTE ; Start at 08:38; Stop 01/29/17 at 08:39; Status DC Ondansetron HCl (Zofran) 4 mg PRN Q6HRS PRN IV NAUSEA/VOMITING; Start 01/29/17 at 08:45; Stop 01/29/17 at 18:00; Status DC Fentanyl Citrate (Fentanyl 2ml Vial) 25 mcg PRN Q5MIN PRN IV MILD PAIN; Start 01/29/17 at 08:45; Stop 01/29/17 at 18:00; Status DC Fentanyl Citrate (Fentanyl 2ml Vial) 50 mcg PRN Q5MIN PRN IV MODERATE PAIN Last administered on 01/29/17 12:35; Start 01/29/17 at 08:45; Stop 01/29/17 at 18:00; Status DC Morphine Sulfate 1 mg PRN Q10MIN PRN IV SEVERE PAIN; Start 01/29/17 at 08:45; Stop 01/29/17 at 18:00; Status DC Ringer's Solution 1,000 ml @ 30 mls/hr Q24H IV ; Start 01/29/17 at 08:43; Stop 01/29/17 at 20:42; Status DC Lidocaine HCl 2 ml PRN 1X PRN ID PRIOR TO IV START; Start 01/29/17 at 08:45; Stop 01/29/17 at 18:00; Status DC Hydromorphone HCl (Dilaudid) 0.5 mg PRN Q10MIN PRN IV SEV PAIN, Second choice Last administered on 01/29/17 13:28; Start 01/29/17 at 08:45; Stop 01/29/17 at 18:00; Status DC Prochlorperazine Edisylate (Compazine) 5 mg PACU PRN PRN IV NAUSEA, MRX1; Start 01/29/17 at 08:45; Stop 01/29/17 at 18:00; Status DC Cefazolin Sodium/ Dextrose 50 ml @ 100 mls/hr 1X PREOP PRN IV PRE OP DOSE Last administered on 01/29/17 11:05; Start 01/29/17 at 10:15; Stop 01/29/17 at 18:00; Status DC Dexamethasone Sodium Phosphate (Decadron) 20 mg STK-MED ONCE .ROUTE ; Start 06/07 at 10:58; Stop 01/29/17 at 10:59; Status DC Sevoflurane (Ultane) 60 ml STK-MED ONCE IH ; Start 01/29/17 at 10:58; Stop 01/29 at 10:59; Status DC Ondansetron HCl (Zofran) 4 mg STK-MED ONCE .ROUTE ; Start 01/29/17 at 11:24; Stop 01/29/17 at 11:25; Status DC Oxycodone HCl (Roxicodone) 5 mg PRN Q3HRS PRN PO PAIN Last administered on 01/30 10:10; Start 01/29/17 at 13:00; Stop 01/30/17 at 19:16; Status DC Morphine Sulfate 2 mg PRN Q1HR PRN IV PAIN Last administered on 01/30/17 14:52 ; Start 01/29/17 at 13:00 Fentanyl Citrate (Fentanyl 2ml Vial) 25 mcg PRN Q1HR PRN IV PAIN; Start at 13:00 Senna/Docusate Sodium (Senna Plus) 1 tab DAILY PO Last administered on 08:48; Start 01/29/17 at 14:00; Stop 02/03/17 at 12:07; Status DC Polyethylene Glycol (miraLAX PACKET) 17 gm PRN DAILY PRN PO CONSTIPATION; Start 01/29/17 at 13:00 Ondansetron HCl (Zofran) 4 mg PRN Q4HRS PRN IV NAUSEA/VOMITING; Start 01/29/17 at 13:00 Warfarin Sodium (Coumadin) 7.5 mg 1X ONCE PO Last administered on 01/29/17 17 :44; Start 01/29/17 at 16:00; Stop 01/29/17 at 16:01; Status DC Warfarin Sodium (Coumadin Per Pharmacy) 1 each PRN DAILY PRN MC SEE COMMENTS Last administered on 01/31/17 10:17; Start 01/30/17 at 13:00; Stop 01/31/17 at 11:33; Status DC Magnesium Hydroxide (Milk Of Magnesia) 2,400 mg 1X PRN PRN PO CONSTIPATION; Start 01/30/17 at 06:00; Stop 01/31/17 at 05:59; Status DC Bisacodyl (Dulcolax Supp) 10 mg 1X PRN PRN [place] CONSTIPATION; Start 01/30/17 at 16:00; Stop 01/31/17 at 15:59; Status DC Acetaminophen/ Hydrocodone Bitart (Lortab 7.5/325) 1 tab PRN Q4HRS PRN PO PAIN ; Start 01/29/17 at 13:00 Morphine Sulfate 4 mg PRN Q2HR PRN IV PAIN Last administered on 02/03/17 02:36 ; Start 01/29/17 at 13:00 Acetaminophen/ Hydrocodone Bitart (Lortab 7.5/325) 2 tab PRN Q4HRS PRN PO PAIN Last administered on 02/03/17 08:48; Start 01/29/17 at 13:00; Stop 02/03/17 at 12:07; Status DC Dextrose (Dextrose 50%-Water Syringe) 12.5 gm PRN Q15MIN PRN IV SEE COMMENTS; Start 01/29/17 at 13:00 Cefazolin Sodium/ Dextrose 50 ml @ 100 mls/hr Q6H IV Last administered on 01/30 06:13; Start 01/29/17 at 18:00; Stop 01/30/17 at 06:29; Status DC Enoxaparin Sodium (Lovenox 40mg Syringe) 40 mg Q24H SQ Last administered on 10:10; Start 01/30/17 at 07:00; Stop 01/31/17 at 12:00; Status DC Polyethylene Glycol (miraLAX PACKET) 17 gm BID PO Last administered on 08:48; Start 01/29/17 at 21:00 Warfarin Sodium (Coumadin) 5 mg 1X WARF ONCE PO Last administered on 18:23; Start 01/30/17 at 16:00; Stop 01/30/17 at 16:01; Status DC Oxycodone HCl (Roxicodone) 10 mg PRN Q3HRS PRN PO PAIN Last administered on 12:46; Start 01/30/17 at 19:15 Cyclobenzaprine HCl (Flexeril) 10 mg PRN Q6HRS PRN PO MUSCLE SPASMS Last administered on 02/03/17 06:06; Start 01/30/17 at 19:15 Acetaminophen (Tylenol) 650 mg PRN Q4HRS PRN PO FEVER Last administered on 02/02 03:10; Start 01/31/17 at 04:15 Warfarin Sodium (Coumadin) 3 mg 1X WARF ONCE PO ; Start 01/31/17 at 16:00; Stop 01/31/17 at 16:01; Status Cancel Rivaroxaban (Xarelto) 10 mg DAILYWSUP PO Last administered on 02/02/17 17:34; Start 01/31/17 at 17:00; Stop 02/27/17 at 17:01 Info (Anti-Coagulation Monitoring By Pharmacy) 1 each PRN DAILY PRN MC SEE COMMENTS Last administered on 02/01/17 13:04; Start 01/31/17 at 11:45; Stop at 12:53; Status DC Diphenhydramine HCl (Benadryl) 25 mg 1X ONCE PO Last administered on 21:06; Start 01/31/17 at 21:00; Stop 01/31/17 at 21:01; Status DC Ceftriaxone Sodium 1 gm/ Sodium Chloride 50 ml @ 100 mls/hr Q24H IV Last administered on 02/03/17 12:43; Start 02/01/17 at 12:30 Ferrous Sulfate (Feosol) 325 mg DAILYWBKFT PO Last administered on 02/03/17 08 :48; Start 02/02/17 at 19:00 Senna/Docusate Sodium (Senna Plus) 1 tab BID PO ; Start 02/03/17 at 21:00 Oxycodone HCl (OxyCONTIN) 15 mg Q12HR PO Last administered on 02/03/17 12:46; Start 02/03/17 at 13:00 Docusate Sodium (Colace) 100 mg DAILY PO Last administered on 02/03/17 12:45; Start 02/03/17 at 13:00 Active Scripts Active Reported No Known Medications Prior To Admisstion (Info) Each 1 Each Vitals/I & O Vital Sign - Last 24 Hours 02/02/17 02/02/17 02/02/17 02/02/17 15:00 15:07 19:05 20:00 Temp 99.0 100.4 99.0 100.4 Pulse 111 119 Resp 20 20 16 B/P (MAP) 122/70 (87) 134/71 (92) Pulse Ox 98 96 99 O2 Delivery Room Air Room Air Room Air Room Air 02/02/17 02/02/17 02/02/17 02/02/17 20:22 21:42 22:42 22:48 Temp 99.3 99.3 Pulse 109 Resp 20 20 20 16 B/P (MAP) 127/69 (88) Pulse Ox 99 99 99 99 O2 Delivery Room Air Room Air Room Air 02/02/17 02/03/17 02/03/17 02/03/17 23:40 02:31 02:36 03:04 Temp 99.1 99.1 Pulse 119 Resp 20 20 20 16 B/P (MAP) 136/78 (97) Pulse Ox 99 99 99 96 O2 Delivery Room Air Room Air Room Air Room Air 02/03/17 02/03/17 02/03/17 02/03/17 03:06 03:31 06:06 07:00 Temp 97.9 97.9 Pulse 105 Resp 20 20 20 20 B/P (MAP) 137/84 (101) Pulse Ox 96 96 96 95 O2 Delivery Room Air Room Air Room Air 02/03/17 02/03/17 02/03/17 02/03/17 07:50 08:00 09:49 11:00 Temp 100.0 100.0 Pulse 102 Resp 20 B/P (MAP) 123/67 (85) Pulse Ox 94 O2 Delivery Room Air Room Air Room Air Room Air Intake and Output 02/02/17 02/02/17 02/03/17 15:00 23:00 07:00 Intake Total 700 ml Output Total 2400 ml Balance -2400 ml 700 ml JEANNINE HUGHES MD Feb 03, 2017 13:50
[2017-02-03 15:00] VITALS: BP 133/75
[2017-02-03] MEDS: RIVAROXABAN 10 MG TABLET. PO SCH (16:40)
[2017-02-03] MEDS: MORPHINE SULFATE 2 MG/ML DISP.SYRIN. IV PRN (17:07)
[2017-02-03 19:10] VITALS: BP 153/70
[2017-02-03] MEDS: ACETAMINOPHEN 325 MG TABLET. PO PRN (21:48)
[2017-02-03 22:51] VITALS: BP 158/80
[2017-02-04] VITALS (7 sets, daily range): BP systolic 115–146; BP diastolic 70–78
[2017-02-04] MEDS: ACETAMINOPHEN 325 MG TABLET. PO PRN ×2 (01:36→19:47)
[2017-02-04] MEDS: oxyCODONE IR 5 MG TABLET PO PRN ×4 (01:36→18:17)
[2017-02-04] MEDS: MORPHINE SULFATE 4 MG/ML DISP.SYRIN. IV PRN (01:38)
[2017-02-04 04:13] LABS: BASO % 0 % (0-3); EOS % 2 % (0-3); HEMATOCRIT 25.5 % (39.0-53.0); HEMOGLOBIN 8.8 g/dL (13.0-17.5); LYMPH # 0.9 x10^3/uL (1.0-4.8); LYMPH % 12 % (24-48); MEAN CORPUSCULAR HEMOGLOBIN 32 pg (25-35); MEAN CORPUSCULAR HGB CONC 34 g/dL (31-37); MEAN CORPUSCULAR VOLUME 93 fL (79-100); MONO % 10 % (0-9); NEUT % 75 % (31-73); PLATELET COUNT 268 x10^3/uL (140-400); RED BLOOD COUNT 2.75 x10^6/uL (4.30-5.70); RED CELL DISTRIBUTION WIDTH 12.6 % (11.5-14.5); WHITE BLOOD COUNT 7.3 x10^3/uL (4.0-11.0)
[2017-02-04 04:25] LABS: CREATININE 1.4 mg/dL (0.7-1.3); GFR 67.2; POTASSIUM 3.7 mmol/L (3.5-5.1)
[2017-02-04] MEDS: CYCLOBENZAPRINE 10 MG TABLET. PO PRN ×3 (06:26→18:16)
--- NOTE | 2017-02-04 08:24 | PDOC2 ---
CONSULT Date of Consult Date of Consult DATE: 01/29/17 TIME: 08:10 Reason for Consult Reason for Consult: Left femur fracture Referring Physician Referring Physician: Carmen Wiggins M.D. Identification/Chief Complaint Chief Complaint Left thigh pain Problems: History of Present Illness Reason for Visit: Patient is a 41-year-old male that was playing softball and apparently was rounding first base when his foot got caught up on the base, he describes literally going head over heels came down on his left leg had the immediate onset of left thigh pain and deformity and inability to bear weight and was admitted to [place] emergency department shown to have a displaced femoral shaft fracture. Pain reasonably controlled as long as his movement is minimal and he has been nothing by mouth overnight. Past Medical History Cardiovascular: No pertinent hx Pulmonary: No pertinent hx GI: No pertinent hx Heme/Onc: No pertinent hx Hepatobiliary: No pertinent hx Psych: No pertinent hx Musculoskeletal: Other (previous finger surgery) Rheumatologic: No pertinent hx Infectious disease: No pertinent hx Renal/: No pertinent hx Endocrine: No pertinent hx Dermatology: No pertinent hx Past Surgical History Past Surgical History: Other (previous finger surgery) Family History Family History: No Significant Social History No ALCOHOL: none Drugs: None Current Problem List Problem List Problems Medical Problems: (1) Right femoral fracture Status: Acute Current Medications Current Medications Current Medications Hydromorphone HCl (Dilaudid) 2 mg STK-MED ONCE .ROUTE ; Start 01/28/17 at 21:14 ; Stop 01/28/17 at 21:15; Status DC Hydromorphone HCl (Dilaudid) 0.5 mg PRN Q15MIN PRN IV/SQ PAIN GREATER THAN 3/ 10 Last administered on 01/28/17 22:57; Start 01/28/17 at 21:15; Stop 01/29/17 at 21:14; Status DC Sodium Chloride 1,000 ml @ 1,000 mls/hr Q1H IV Last administered on 01/28/17 21:30; Start 01/28/17 at 21:30; Stop 01/28/17 at 22:29; Status DC Morphine Sulfate 4 mg PRN Q2HR PRN IV SEVERE PAIN Last administered on 21:38; Start 01/29/17 at 00:00; Stop 01/29/17 at 23:59; Status DC Sodium Chloride 1,000 ml @ 125 mls/hr Q8H IV Last administered on 01/29/17 01 :47; Start 01/29/17 at 00:00; Stop 01/29/17 at 00:01; Status DC Sodium Chloride 1,000 ml @ 50 mls/hr Q20H IV Last administered on 02/03/17 02 :34; Start 01/29/17 at 02:30; Stop 02/03/17 at 12:07; Status DC Lidocaine HCl (Lidocaine Pf 2% Vial) 5 ml STK-MED ONCE .ROUTE ; Start 01/29/17 at 08:11; Stop 01/29/17 at 08:12; Status DC Propofol 20 ml @ As Directed STK-MED ONCE IV ; Start 01/29/17 at 08:11; Stop 06/07 at 08:12; Status DC Fentanyl Citrate (Fentanyl 2ml Vial) 100 mcg STK-MED ONCE .ROUTE ; Start at 08:11; Stop 01/29/17 at 08:12; Status DC Fentanyl Citrate (Fentanyl 2ml Vial) 100 mcg STK-MED ONCE .ROUTE ; Start at 08:38; Stop 01/29/17 at 08:39; Status DC Ondansetron HCl (Zofran) 4 mg PRN Q6HRS PRN IV NAUSEA/VOMITING; Start 01/29/17 at 08:45; Stop 01/29/17 at 18:00; Status DC Fentanyl Citrate (Fentanyl 2ml Vial) 25 mcg PRN Q5MIN PRN IV MILD PAIN; Start 01/29/17 at 08:45; Stop 01/29/17 at 18:00; Status DC Fentanyl Citrate (Fentanyl 2ml Vial) 50 mcg PRN Q5MIN PRN IV MODERATE PAIN Last administered on 01/29/17t 12:35; Start 01/29/17 at 08:45; Stop 01/29/17 at 18:00; Status DC Morphine Sulfate 1 mg PRN Q10MIN PRN IV SEVERE PAIN; Start 01/29/17 at 08:45; Stop 01/29/17 at 18:00; Status DC Ringer's Solution 1,000 ml @ 30 mls/hr Q24H IV ; Start 01/29/17 at 08:43; Stop 01/29/17 at 20:42; Status DC Lidocaine HCl 2 ml PRN 1X PRN ID PRIOR TO IV START; Start 01/29/17 at 08:45; Stop 01/29/17 at 18:00; Status DC Hydromorphone HCl (Dilaudid) 0.5 mg PRN Q10MIN PRN IV SEV PAIN, Second choice Last administered on 01/29/17 13:28; Start 01/29/17 at 08:45; Stop 01/29/17 at 18:00; Status DC Prochlorperazine Edisylate (Compazine) 5 mg PACU PRN PRN IV NAUSEA, MRX1; Start 01/29/17 at 08:45; Stop 01/29/17 at 18:00; Status DC Cefazolin Sodium/ Dextrose 50 ml @ 100 mls/hr 1X PREOP PRN IV PRE OP DOSE Last administered on 01/29/17 11:05; Start 01/29/17 at 10:15; Stop 01/29/17 at 18:00; Status DC Dexamethasone Sodium Phosphate (Decadron) 20 mg STK-MED ONCE .ROUTE ; Start 06/07 at 10:58; Stop 01/29/17 at 10:59; Status DC Sevoflurane (Ultane) 60 ml STK-MED ONCE IH ; Start 01/29/17 at 10:58; Stop 01/29 at 10:59; Status DC Ondansetron HCl (Zofran) 4 mg STK-MED ONCE .ROUTE ; Start 01/29/17 at 11:24; Stop 01/29/17 at 11:25; Status DC Oxycodone HCl (Roxicodone) 5 mg PRN Q3HRS PRN PO PAIN Last administered on 01/30 10:10; Start 01/29/17 at 13:00; Stop 01/30/17 at 19:16; Status DC Morphine Sulfate 2 mg PRN Q1HR PRN IV PAIN Last administered on 02/03/17 17:07 ; Start 01/29/17 at 13:00 Fentanyl Citrate (Fentanyl 2ml Vial) 25 mcg PRN Q1HR PRN IV PAIN; Start at 13:00 Senna/Docusate Sodium (Senna Plus) 1 tab DAILY PO Last administered on 08:48; Start 01/29/17 at 14:00; Stop 02/03/17 at 12:07; Status DC Polyethylene Glycol (miraLAX PACKET) 17 gm PRN DAILY PRN PO CONSTIPATION; Start 01/29/17 at 13:00 Ondansetron HCl (Zofran) 4 mg PRN Q4HRS PRN IV NAUSEA/VOMITING; Start 01/29/17 at 13:00 Warfarin Sodium (Coumadin) 7.5 mg 1X ONCE PO Last administered on 01/29/17 17 :44; Start 01/29/17 at 16:00; Stop 01/29/17 at 16:01; Status DC Warfarin Sodium (Coumadin Per Pharmacy) 1 each PRN DAILY PRN MC SEE COMMENTS Last administered on 01/31/17 10:17; Start 01/30/17 at 13:00; Stop 01/31/17 at 11:33; Status DC Magnesium Hydroxide (Milk Of Magnesia) 2,400 mg 1X PRN PRN PO CONSTIPATION; Start 01/30/17 at 06:00; Stop 01/31/17 at 05:59; Status DC Bisacodyl (Dulcolax Supp) 10 mg 1X PRN PRN MD CONSTIPATION; Start 01/30/17 at 16:00; Stop 01/31/17 at 15:59; Status DC Acetaminophen/ Hydrocodone Bitart (Lortab 7.5/325) 1 tab PRN Q4HRS PRN PO PAIN Last administered on 02/03/17 21:48; Start 01/29/17 at 13:00 Morphine Sulfate 4 mg PRN Q2HR PRN IV PAIN Last administered on 02/04/17 01:38 ; Start 01/29/17 at 13:00 Acetaminophen/ Hydrocodone Bitart (Lortab 7.5/325) 2 tab PRN Q4HRS PRN PO PAIN Last administered on 02/03/17 08:48; Start 01/29/17 at 13:00; Stop 02/03/17 at 12:07; Status DC Dextrose (Dextrose 50%-Water Syringe) 12.5 gm PRN Q15MIN PRN IV SEE COMMENTS; Start 01/29/17 at 13:00 Cefazolin Sodium/ Dextrose 50 ml @ 100 mls/hr Q6H IV Last administered on 01/30 06:13; Start 01/29/17 at 18:00; Stop 01/30/17 at 06:29; Status DC Enoxaparin Sodium (Lovenox 40mg Syringe) 40 mg Q24H SQ Last administered on 10:10; Start 01/30/17 at 07:00; Stop 01/31/17 at 12:00; Status DC Polyethylene Glycol (miraLAX PACKET) 17 gm BID PO Last administered on 21:49; Start 01/29/17 at 21:00 Warfarin Sodium (Coumadin) 5 mg 1X WARF ONCE PO Last administered on 18:23; Start 01/30/17 at 16:00; Stop 01/30/17 at 16:01; Status DC Oxycodone HCl (Roxicodone) 10 mg PRN Q3HRS PRN PO PAIN Last administered on 06:26; Start 01/30/17 at 19:15 Cyclobenzaprine HCl (Flexeril) 10 mg PRN Q6HRS PRN PO MUSCLE SPASMS Last administered on 02/04/17 06:26; Start 01/30/17 at 19:15 Acetaminophen (Tylenol) 650 mg PRN Q4HRS PRN PO FEVER Last administered on 02/04 01:36; Start 01/31/17 at 04:15 Warfarin Sodium (Coumadin) 3 mg 1X WARF ONCE PO ; Start 01/31/17 at 16:00; Stop 01/31/17 at 16:01; Status Cancel Rivaroxaban (Xarelto) 10 mg DAILYWSUP PO Last administered on 02/03/17 16:40; Start 01/31/17 at 17:00; Stop 02/27/17 at 17:01 Info (Anti-Coagulation Monitoring By Pharmacy) 1 each PRN DAILY PRN MC SEE COMMENTS Last administered on 02/01/17 13:04; Start 01/31/17 at 11:45; Stop at 12:53; Status DC Diphenhydramine HCl (Benadryl) 25 mg 1X ONCE PO Last administered on 21:06; Start 01/31/17 at 21:00; Stop 01/31/17 at 21:01; Status DC Ceftriaxone Sodium 1 gm/ Sodium Chloride 50 ml @ 100 mls/hr Q24H IV Last administered on 02/03/17 12:43; Start 02/01/17 at 12:30 Ferrous Sulfate (Feosol) 325 mg DAILYWBKFT PO Last administered on 02/03/17 08 :48; Start 02/02/17 at 19:00 Senna/Docusate Sodium (Senna Plus) 1 tab BID PO ; Start 02/03/17 at 21:00 Oxycodone HCl (OxyCONTIN) 15 mg Q12HR PO Last administered on 02/03/17 21:49; Start 02/03/17 at 13:00 Docusate Sodium (Colace) 100 mg DAILY PO Last administered on 02/03/17 12:45; Start 02/03/17 at 13:00 Active Scripts Active Reported No Known Medications Prior To Admisstion (Info) Each 1 Each Allergies Allergies: Coded Allergies: No Known Drug Allergies (Unverified , 01/28/17) Physical Exam Physical Exam On exam he is alert and oriented 3 mild distress secondary to his left thigh pain he has significant left thigh swelling but compartments are soft mild paresthesia over the foot but overall sensation and distal motor function is all intact normal stability of the left hip knee and ankle normal examination of the contralateral right knee hip and ankle with alignment and stability normal. Normal alignment stability active motion of bilateral shoulders elbows and wrists no neck or back pain on palpation and normal motion negative Spurling 's Vitals VITALS Vital Signs Date Time Temp Pulse Resp B/P (MAP) Pulse Ox O2 Delivery O2 Flow Rate FiO2 02/04/17 07:15 99.1 106 18 128/78 (95) 97 Room Air 99.1 02/03/17 20:00 2.0 Labs Labs Laboratory Tests Test 02/03/17 05:45 02/04/17 03:22 White Blood Count 6.3 x10^3/uL (4.0-11.0) 7.3 x10^3/uL (4.0-11.0) Red Blood Count 2.77 x10^6/uL (4.30-5.70) 2.75 x10^6/uL (4.30-5.70) Hemoglobin 8.8 g/dL (13.0-17.5) 8.8 g/dL (13.0-17.5) Hematocrit 25.8 % (39.0-53.0) 25.5 % (39.0-53.0) Mean Corpuscular Volume 93 fL (79-100) 93 fL (79-100) Mean Corpuscular Hemoglobin 32 pg (25-35) 32 pg (25-35) Mean Corpuscular Hemoglobin Concent 34 g/dL (31-37) 34 g/dL (31-37) Red Cell Distribution Width 12.2 % (11.5-14.5) 12.6 % (11.5-14.5) Platelet Count 223 x10^3/uL (140-400) 268 x10^3/uL (140-400) Neutrophils (%) (Auto) 69 % (31-73) 75 % (31-73) Lymphocytes (%) (Auto) 18 % (24-48) 12 % (24-48) Monocytes (%) (Auto) 10 % (0-9) 10 % (0-9) Eosinophils (%) (Auto) 3 % (0-3) 2 % (0-3) Basophils (%) (Auto) 1 % (0-3) 0 % (0-3) Neutrophils # (Auto) 4.4 x10^3uL (1.8-7.7) 5.5 x10^3uL (1.8-7.7) Lymphocytes # (Auto) 1.1 x10^3/uL (1.0-4.8) 0.9 x10^3/uL (1.0-4.8) Monocytes # (Auto) 0.6 x10^3/uL (0.0-1.1) 0.8 x10^3/uL (0.0-1.1) Eosinophils # (Auto) 0.2 x10^3/uL (0.0-0.7) 0.2 x10^3/uL (0.0-0.7) Basophils # (Auto) 0.0 x10^3/uL (0.0-0.2) 0.0 x10^3/uL (0.0-0.2) Sodium Level 139 mmol/L (136-145) 139 mmol/L (136-145) Potassium Level 3.6 mmol/L (3.5-5.1) 3.7 mmol/L (3.5-5.1) Chloride Level 102 mmol/L (98-107) 101 mmol/L (98-107) Carbon Dioxide Level 30 mmol/L (21-32) 30 mmol/L (21-32) Anion Gap 7 (6-14) 8 (6-14) Blood Urea Nitrogen 14 mg/dL (8-26) 15 mg/dL (8-26) Creatinine 1.3 mg/dL (0.7-1.3) 1.4 mg/dL (0.7-1.3) Estimated GFR (Cockcroft-Gault) 73.3 67.2 Glucose Level 104 mg/dL (70-99) 109 mg/dL (70-99) Calcium Level 7.7 mg/dL (8.5-10.1) 8.0 mg/dL (8.5-10.1) Laboratory Tests Test 02/04/17 03:22 White Blood Count 7.3 x10^3/uL (4.0-11.0) Red Blood Count 2.75 x10^6/uL (4.30-5.70) Hemoglobin 8.8 g/dL (13.0-17.5) Hematocrit 25.5 % (39.0-53.0) Mean Corpuscular Volume 93 fL (79-100) Mean Corpuscular Hemoglobin 32 pg (25-35) Mean Corpuscular Hemoglobin Concent 34 g/dL (31-37) Red Cell Distribution Width 12.6 % (11.5-14.5) Platelet Count 268 x10^3/uL (140-400) Neutrophils (%) (Auto) 75 % (31-73) Lymphocytes (%) (Auto) 12 % (24-48) Monocytes (%) (Auto) 10 % (0-9) Eosinophils (%) (Auto) 2 % (0-3) Basophils (%) (Auto) 0 % (0-3) Neutrophils # (Auto) 5.5 x10^3uL (1.8-7.7) Lymphocytes # (Auto) 0.9 x10^3/uL (1.0-4.8) Monocytes # (Auto) 0.8 x10^3/uL (0.0-1.1) Eosinophils # (Auto) 0.2 x10^3/uL (0.0-0.7) Basophils # (Auto) 0.0 x10^3/uL (0.0-0.2) Sodium Level 139 mmol/L (136-145) Potassium Level 3.7 mmol/L (3.5-5.1) Chloride Level 101 mmol/L (98-107) Carbon Dioxide Level 30 mmol/L (21-32) Anion Gap 8 (6-14) Blood Urea Nitrogen 15 mg/dL (8-26) Creatinine 1.4 mg/dL (0.7-1.3) Estimated GFR (Cockcroft-Gault) 67.2 Glucose Level 109 mg/dL (70-99) Calcium Level 8.0 mg/dL (8.5-10.1) Images Images Left femur films show a comminuted midshaft left femur fracture. Hip and knee films normal Assessment/Plan Assessment/Plan I went over with him the x-ray findings and the plan fixation of his femur fracture. We talked about the possibility of infection nerve and blood vessel damage medical or other anesthetic complications, including blood clots and the need for anticoagulation. We covered possible weightbearing restrictions until healing is noted, and the less desirable nonoperative treatment alternatives of traction and the complications of the mobility especially associated with that. He wishes to proceed with surgical evaluation and treatment which will occur today BRITNI BURCIAGA MD Feb 04, 2017 08:24
[2017-02-04] MEDS: DOCUSATE SODIUM 100 MG CAPSULE. PO SCH (09:07)
[2017-02-04] MEDS: SENNOSIDES/DOCUSATE 8.6/50MG TABLET. PO SCH ×2 (09:07→21:45)
[2017-02-04] MEDS: FERROUS SULFATE 325 MG TABLET. PO SCH (09:07)
[2017-02-04] MEDS: oxyCODONE ER 15 MG TAB.ER.12H PO SCH ×2 (09:08→21:45)
[2017-02-04] MEDS: POLYETHYLENE GLYCOL 3350 17 GM PACKET. PO SCH ×2 (09:08→21:44)
[2017-02-04] MEDS ORDERED: ANTI-COAG MONITOR BY PHARMACY. MC PRN (11:00)
--- NOTE | 2017-02-04 11:14 | PDOC ---
PROGRESS NOTES Chief Complaint Chief Complaint (1) Femoral fracture s/p sx (2) Mild anemia post op expected (3) Hyperglycemia (4) Elevated creatine (5) Post-op leg pain (6) Narcotic induced constipation fever, no cough, but + cxr, could be 2/2 post sx PLAN: fu ortho, stable from ortho standpoint altho still swelling and has some drainage on ceftriaxone for pna? add oxycontin, cont oxycodone prn. DC Ivf fever, dc when no fever add stool softner add iron po hope dc soon, cont AC for dvt ppx as per ortho History of Present Illness History of Present Illness pt is resting comfortably in bed, he no longer as any fevers, probable DC today with outpt abx Vitals Vitals Vital Signs Date Time Temp Pulse Resp B/P (MAP) Pulse Ox O2 Delivery O2 Flow Rate FiO2 02/04/17 09:08 16 97 Room Air 02/04/17 07:15 99.1 106 128/78 (95) 99.1 02/03/17 20:00 2.0 Physical Exam General: Alert, Oriented X3, Cooperative, No acute distress Heart: Regular rate, No murmurs Lungs: Clear Abdomen: Normal bowel sounds, Soft, No tenderness Extremities: No clubbing, No cyanosis, Normal pulses, Other (left leg with dital femur incision covered with gauze. anterior thigh swellnig improved) Skin: No rashes, Other (Bandage is clean dry and intact) Labs LABS Laboratory Tests Test 02/04/17 03:22 White Blood Count 7.3 x10^3/uL (4.0-11.0) Red Blood Count 2.75 x10^6/uL (4.30-5.70) Hemoglobin 8.8 g/dL (13.0-17.5) Hematocrit 25.5 % (39.0-53.0) Mean Corpuscular Volume 93 fL (79-100) Mean Corpuscular Hemoglobin 32 pg (25-35) Mean Corpuscular Hemoglobin Concent 34 g/dL (31-37) Red Cell Distribution Width 12.6 % (11.5-14.5) Platelet Count 268 x10^3/uL (140-400) Neutrophils (%) (Auto) 75 % (31-73) Lymphocytes (%) (Auto) 12 % (24-48) Monocytes (%) (Auto) 10 % (0-9) Eosinophils (%) (Auto) 2 % (0-3) Basophils (%) (Auto) 0 % (0-3) Neutrophils # (Auto) 5.5 x10^3uL (1.8-7.7) Lymphocytes # (Auto) 0.9 x10^3/uL (1.0-4.8) Monocytes # (Auto) 0.8 x10^3/uL (0.0-1.1) Eosinophils # (Auto) 0.2 x10^3/uL (0.0-0.7) Basophils # (Auto) 0.0 x10^3/uL (0.0-0.2) Sodium Level 139 mmol/L (136-145) Potassium Level 3.7 mmol/L (3.5-5.1) Chloride Level 101 mmol/L (98-107) Carbon Dioxide Level 30 mmol/L (21-32) Anion Gap 8 (6-14) Blood Urea Nitrogen 15 mg/dL (8-26) Creatinine 1.4 mg/dL (0.7-1.3) Estimated GFR (Cockcroft-Gault) 67.2 Glucose Level 109 mg/dL (70-99) Calcium Level 8.0 mg/dL (8.5-10.1) Review of Systems Review of Systems Denies N/V/D and DAVIS Assessment and Plan Assessmemt and Plan Assessment: (1) Femoral fracture (2) Mild anemia (3) Hyperglycemia (4) Elevated creatine (5) Post-op leg pain (6) Narcotic induced constipation Plan: (1.) Cont with rehab: Pt/Ot (2.) Cont wound care of surgical site (3.) Discussed plan of care with nursing (4.) Miralax for constipation (5.) Pain management (6.) Cont clot prophylaxis (7.) Ordered CTX abx for abnormal chest xray (8.) Reviewed cultures: blood NGTD (9.) Probable DC today with PO abx Problems: Comment Review of Relevant I have reviewed the following items ivette (where applicable) has been applied. Labs Laboratory Tests Test 02/03/17 05:45 02/04/17 03:22 White Blood Count 6.3 x10^3/uL (4.0-11.0) 7.3 x10^3/uL (4.0-11.0) Red Blood Count 2.77 x10^6/uL (4.30-5.70) 2.75 x10^6/uL (4.30-5.70) Hemoglobin 8.8 g/dL (13.0-17.5) 8.8 g/dL (13.0-17.5) Hematocrit 25.8 % (39.0-53.0) 25.5 % (39.0-53.0) Mean Corpuscular Volume 93 fL (79-100) 93 fL (79-100) Mean Corpuscular Hemoglobin 32 pg (25-35) 32 pg (25-35) Mean Corpuscular Hemoglobin Concent 34 g/dL (31-37) 34 g/dL (31-37) Red Cell Distribution Width 12.2 % (11.5-14.5) 12.6 % (11.5-14.5) Platelet Count 223 x10^3/uL (140-400) 268 x10^3/uL (140-400) Neutrophils (%) (Auto) 69 % (31-73) 75 % (31-73) Lymphocytes (%) (Auto) 18 % (24-48) 12 % (24-48) Monocytes (%) (Auto) 10 % (0-9) 10 % (0-9) Eosinophils (%) (Auto) 3 % (0-3) 2 % (0-3) Basophils (%) (Auto) 1 % (0-3) 0 % (0-3) Neutrophils # (Auto) 4.4 x10^3uL (1.8-7.7) 5.5 x10^3uL (1.8-7.7) Lymphocytes # (Auto) 1.1 x10^3/uL (1.0-4.8) 0.9 x10^3/uL (1.0-4.8) Monocytes # (Auto) 0.6 x10^3/uL (0.0-1.1) 0.8 x10^3/uL (0.0-1.1) Eosinophils # (Auto) 0.2 x10^3/uL (0.0-0.7) 0.2 x10^3/uL (0.0-0.7) Basophils # (Auto) 0.0 x10^3/uL (0.0-0.2) 0.0 x10^3/uL (0.0-0.2) Sodium Level 139 mmol/L (136-145) 139 mmol/L (136-145) Potassium Level 3.6 mmol/L (3.5-5.1) 3.7 mmol/L (3.5-5.1) Chloride Level 102 mmol/L (98-107) 101 mmol/L (98-107) Carbon Dioxide Level 30 mmol/L (21-32) 30 mmol/L (21-32) Anion Gap 7 (6-14) 8 (6-14) Blood Urea Nitrogen 14 mg/dL (8-26) 15 mg/dL (8-26) Creatinine 1.3 mg/dL (0.7-1.3) 1.4 mg/dL (0.7-1.3) Estimated GFR (Cockcroft-Gault) 73.3 67.2 Glucose Level 104 mg/dL (70-99) 109 mg/dL (70-99) Calcium Level 7.7 mg/dL (8.5-10.1) 8.0 mg/dL (8.5-10.1) Laboratory Tests Test 02/04/17 03:22 White Blood Count 7.3 x10^3/uL (4.0-11.0) Red Blood Count 2.75 x10^6/uL (4.30-5.70) Hemoglobin 8.8 g/dL (13.0-17.5) Hematocrit 25.5 % (39.0-53.0) Mean Corpuscular Volume 93 fL (79-100) Mean Corpuscular Hemoglobin 32 pg (25-35) Mean Corpuscular Hemoglobin Concent 34 g/dL (31-37) Red Cell Distribution Width 12.6 % (11.5-14.5) Platelet Count 268 x10^3/uL (140-400) Neutrophils (%) (Auto) 75 % (31-73) Lymphocytes (%) (Auto) 12 % (24-48) Monocytes (%) (Auto) 10 % (0-9) Eosinophils (%) (Auto) 2 % (0-3) Basophils (%) (Auto) 0 % (0-3) Neutrophils # (Auto) 5.5 x10^3uL (1.8-7.7) Lymphocytes # (Auto) 0.9 x10^3/uL (1.0-4.8) Monocytes # (Auto) 0.8 x10^3/uL (0.0-1.1) Eosinophils # (Auto) 0.2 x10^3/uL (0.0-0.7) Basophils # (Auto) 0.0 x10^3/uL (0.0-0.2) Sodium Level 139 mmol/L (136-145) Potassium Level 3.7 mmol/L (3.5-5.1) Chloride Level 101 mmol/L (98-107) Carbon Dioxide Level 30 mmol/L (21-32) Anion Gap 8 (6-14) Blood Urea Nitrogen 15 mg/dL (8-26) Creatinine 1.4 mg/dL (0.7-1.3) Estimated GFR (Cockcroft-Gault) 67.2 Glucose Level 109 mg/dL (70-99) Calcium Level 8.0 mg/dL (8.5-10.1) Microbiology 01/31/17 Blood Culture - Preliminary, Resulted NO GROWTH AFTER 4 DAYS Medications Current Medications Hydromorphone HCl (Dilaudid) 2 mg STK-MED ONCE .ROUTE ; Start 01/28/17 at 21:14 ; Stop 01/28/17 at 21:15; Status DC Hydromorphone HCl (Dilaudid) 0.5 mg PRN Q15MIN PRN IV/SQ PAIN GREATER THAN 3/ 10 Last administered on 01/28/17 22:57; Start 01/28/17 at 21:15; Stop 01/29/17 at 21:14; Status DC Sodium Chloride 1,000 ml @ 1,000 mls/hr Q1H IV Last administered on 01/28/17 21:30; Start 01/28/17 at 21:30; Stop 01/28/17 at 22:29; Status DC Morphine Sulfate 4 mg PRN Q2HR PRN IV SEVERE PAIN Last administered on 21:38; Start 01/29/17 at 00:00; Stop 01/29/17 at 23:59; Status DC Sodium Chloride 1,000 ml @ 125 mls/hr Q8H IV Last administered on 01/29/17 01 :47; Start 01/29/17 at 00:00; Stop 01/29/17 at 00:01; Status DC Sodium Chloride 1,000 ml @ 50 mls/hr Q20H IV Last administered on 02/03/17 02 :34; Start 01/29/17 at 02:30; Stop 02/03/17 at 12:07; Status DC Lidocaine HCl (Lidocaine Pf 2% Vial) 5 ml STK-MED ONCE .ROUTE ; Start 01/29/17 at 08:11; Stop 01/29/17 at 08:12; Status DC Propofol 20 ml @ As Directed STK-MED ONCE IV ; Start 01/29/17 at 08:11; Stop 06/07 at 08:12; Status DC Fentanyl Citrate (Fentanyl 2ml Vial) 100 mcg STK-MED ONCE .ROUTE ; Start at 08:11; Stop 01/29/17 at 08:12; Status DC Fentanyl Citrate (Fentanyl 2ml Vial) 100 mcg STK-MED ONCE .ROUTE ; Start at 08:38; Stop 01/29/17 at 08:39; Status DC Ondansetron HCl (Zofran) 4 mg PRN Q6HRS PRN IV NAUSEA/VOMITING; Start 01/29/17 at 08:45; Stop 01/29/17 at 18:00; Status DC Fentanyl Citrate (Fentanyl 2ml Vial) 25 mcg PRN Q5MIN PRN IV MILD PAIN; Start 01/29/17 at 08:45; Stop 01/29/17 at 18:00; Status DC Fentanyl Citrate (Fentanyl 2ml Vial) 50 mcg PRN Q5MIN PRN IV MODERATE PAIN Last administered on 01/29/17t 12:35; Start 01/29/17 at 08:45; Stop 01/29/17 at 18:00; Status DC Morphine Sulfate 1 mg PRN Q10MIN PRN IV SEVERE PAIN; Start 01/29/17 at 08:45; Stop 01/29/17 at 18:00; Status DC Ringer's Solution 1,000 ml @ 30 mls/hr Q24H IV ; Start 01/29/17 at 08:43; Stop 01/29/17 at 20:42; Status DC Lidocaine HCl 2 ml PRN 1X PRN ID PRIOR TO IV START; Start 01/29/17 at 08:45; Stop 01/29/17 at 18:00; Status DC Hydromorphone HCl (Dilaudid) 0.5 mg PRN Q10MIN PRN IV SEV PAIN, Second choice Last administered on 01/29/17 13:28; Start 01/29/17 at 08:45; Stop 01/29/17 at 18:00; Status DC Prochlorperazine Edisylate (Compazine) 5 mg PACU PRN PRN IV NAUSEA, MRX1; Start 01/29/17 at 08:45; Stop 01/29/17 at 18:00; Status DC Cefazolin Sodium/ Dextrose 50 ml @ 100 mls/hr 1X PREOP PRN IV PRE OP DOSE Last administered on 01/29/17 11:05; Start 01/29/17 at 10:15; Stop 01/29/17 at 18:00; Status DC Dexamethasone Sodium Phosphate (Decadron) 20 mg STK-MED ONCE .ROUTE ; Start 06/07 at 10:58; Stop 01/29/17 at 10:59; Status DC Sevoflurane (Ultane) 60 ml STK-MED ONCE IH ; Start 01/29/17 at 10:58; Stop 01/29 at 10:59; Status DC Ondansetron HCl (Zofran) 4 mg STK-MED ONCE .ROUTE ; Start 01/29/17 at 11:24; Stop 01/29/17 at 11:25; Status DC Oxycodone HCl (Roxicodone) 5 mg PRN Q3HRS PRN PO PAIN Last administered on 01/30 10:10; Start 01/29/17 at 13:00; Stop 01/30/17 at 19:16; Status DC Morphine Sulfate 2 mg PRN Q1HR PRN IV PAIN Last administered on 02/03/17 17:07 ; Start 01/29/17 at 13:00 Fentanyl Citrate (Fentanyl 2ml Vial) 25 mcg PRN Q1HR PRN IV PAIN; Start at 13:00 Senna/Docusate Sodium (Senna Plus) 1 tab DAILY PO Last administered on 08:48; Start 01/29/17 at 14:00; Stop 02/03/17 at 12:07; Status DC Polyethylene Glycol (miraLAX PACKET) 17 gm PRN DAILY PRN PO CONSTIPATION; Start 01/29/17 at 13:00 Ondansetron HCl (Zofran) 4 mg PRN Q4HRS PRN IV NAUSEA/VOMITING; Start 01/29/17 at 13:00 Warfarin Sodium (Coumadin) 7.5 mg 1X ONCE PO Last administered on 01/29/17 17 :44; Start 01/29/17 at 16:00; Stop 01/29/17 at 16:01; Status DC Warfarin Sodium (Coumadin Per Pharmacy) 1 each PRN DAILY PRN MC SEE COMMENTS Last administered on 01/31/17 10:17; Start 01/30/17 at 13:00; Stop 01/31/17 at 11:33; Status DC Magnesium Hydroxide (Milk Of Magnesia) 2,400 mg 1X PRN PRN PO CONSTIPATION; Start 01/30/17 at 06:00; Stop 01/31/17 at 05:59; Status DC Bisacodyl (Dulcolax Supp) 10 mg 1X PRN PRN [place] CONSTIPATION; Start 01/30/17 at 16:00; Stop 01/31/17 at 15:59; Status DC Acetaminophen/ Hydrocodone Bitart (Lortab 7.5/325) 1 tab PRN Q4HRS PRN PO PAIN Last administered on 02/03/17 21:48; Start 01/29/17 at 13:00 Morphine Sulfate 4 mg PRN Q2HR PRN IV PAIN Last administered on 02/04/17 01:38 ; Start 01/29/17 at 13:00 Acetaminophen/ Hydrocodone Bitart (Lortab 7.5/325) 2 tab PRN Q4HRS PRN PO PAIN Last administered on 02/03/17 08:48; Start 01/29/17 at 13:00; Stop 02/03/17 at 12:07; Status DC Dextrose (Dextrose 50%-Water Syringe) 12.5 gm PRN Q15MIN PRN IV SEE COMMENTS; Start 01/29/17 at 13:00 Cefazolin Sodium/ Dextrose 50 ml @ 100 mls/hr Q6H IV Last administered on 01/30 06:13; Start 01/29/17 at 18:00; Stop 01/30/17 at 06:29; Status DC Enoxaparin Sodium (Lovenox 40mg Syringe) 40 mg Q24H SQ Last administered on 10:10; Start 01/30/17 at 07:00; Stop 01/31/17 at 12:00; Status DC Polyethylene Glycol (miraLAX PACKET) 17 gm BID PO Last administered on 09:08; Start 01/29/17 at 21:00 Warfarin Sodium (Coumadin) 5 mg 1X WARF ONCE PO Last administered on 18:23; Start 01/30/17 at 16:00; Stop 01/30/17 at 16:01; Status DC Oxycodone HCl (Roxicodone) 10 mg PRN Q3HRS PRN PO PAIN Last administered on 06:26; Start 01/30/17 at 19:15 Cyclobenzaprine HCl (Flexeril) 10 mg PRN Q6HRS PRN PO MUSCLE SPASMS Last administered on 02/04/17 06:26; Start 01/30/17 at 19:15 Acetaminophen (Tylenol) 650 mg PRN Q4HRS PRN PO FEVER Last administered on 02/04 01:36; Start 01/31/17 at 04:15 Warfarin Sodium (Coumadin) 3 mg 1X WARF ONCE PO ; Start 01/31/17 at 16:00; Stop 01/31/17 at 16:01; Status Cancel Rivaroxaban (Xarelto) 10 mg DAILYWSUP PO Last administered on 02/03/17 16:40; Start 01/31/17 at 17:00; Stop 02/27/17 at 17:01 Info (Anti-Coagulation Monitoring By Pharmacy) 1 each PRN DAILY PRN MC SEE COMMENTS Last administered on 02/01/17 13:04; Start 01/31/17 at 11:45; Stop at 12:53; Status DC Diphenhydramine HCl (Benadryl) 25 mg 1X ONCE PO Last administered on 21:06; Start 01/31/17 at 21:00; Stop 01/31/17 at 21:01; Status DC Ceftriaxone Sodium 1 gm/ Sodium Chloride 50 ml @ 100 mls/hr Q24H IV Last administered on 02/03/17 12:43; Start 02/01/17 at 12:30 Ferrous Sulfate (Feosol) 325 mg DAILYWBKFT PO Last administered on 02/04/17 09 :07; Start 02/02/17 at 19:00 Senna/Docusate Sodium (Senna Plus) 1 tab BID PO Last administered on 02/04/17 09:07; Start 02/03/17 at 21:00 Oxycodone HCl (OxyCONTIN) 15 mg Q12HR PO Last administered on 02/04/17 09:08; Start 02/03/17 at 13:00 Docusate Sodium (Colace) 100 mg DAILY PO Last administered on 02/04/17 09:07; Start 02/03/17 at 13:00 Info (Anti-Coagulation Monitoring By Pharmacy) 1 each PRN DAILY PRN MC SEE COMMENTS Last administered on 02/04/17 11:05; Start 02/04/17 at 11:00 Active Scripts Active Reported No Known Medications Prior To Admisstion (Info) Each 1 Each Vitals/I & O Vital Sign - Last 24 Hours 02/03/17 02/03/17 02/03/17 02/03/17 15:00 19:10 20:00 21:48 Temp 99.0 99.9 99.0 99.9 Pulse 115 119 Resp 20 16 20 B/P (MAP) 133/75 (94) 153/70 (97) Pulse Ox 98 98 98 O2 Delivery Room Air Room Air Room Air Room Air O2 Flow Rate 2.0 02/03/17 02/03/17 02/03/17 02/03/17 21:49 21:50 22:48 22:51 Temp 101.8 101.8 Pulse 117 Resp 20 20 20 16 B/P (MAP) 158/80 (106) Pulse Ox 98 98 96 96 O2 Delivery Room Air Room Air Room Air Room Air 02/04/17 02/04/17 02/04/17 02/04/17 01:36 01:38 01:49 02:08 Resp 20 20 20 20 Pulse Ox 96 96 96 96 O2 Delivery Room Air Room Air Room Air Room Air 02/04/17 02/04/17 02/04/17 02/04/17 02:36 03:06 06:26 07:15 Temp 99.7 99.1 99.7 99.1 Pulse 113 106 Resp 16 20 18 B/P (MAP) 132/71 (91) 128/78 (95) Pulse Ox 96 97 97 97 O2 Delivery Room Air Room Air Room Air 02/04/17 02/04/17 02/04/17 07:26 08:00 09:08 Resp 18 16 Pulse Ox 97 O2 Delivery Room Air Room Air Room Air Intake and Output 02/03/17 02/03/17 02/04/17 15:00 23:00 07:00 Intake Total 550 ml Output Total 1800 ml 1100 ml Balance -1800 ml -550 ml PATRICIA NAVARRETE III DO Feb 04, 2017 11:14
[2017-02-04] MEDS: HYDROcodone/APAP 7.5/325MG 1 TAB TABLET PO PRN (11:17)
[2017-02-04] MEDS: RIVAROXABAN 10 MG TABLET. PO SCH (16:29)
[2017-02-05 03:03] VITALS: BP 112/75
[2017-02-05] MEDS: ACETAMINOPHEN 325 MG TABLET. PO PRN (04:10)
[2017-02-05 05:07] LABS: BASO # 0.1 x10^3/uL (0.0-0.2); BASO % 1 % (0-3); EOS % 3 % (0-3); HEMATOCRIT 27.9 % (39.0-53.0); HEMOGLOBIN 9.4 g/dL (13.0-17.5); LYMPH % 12 % (24-48); MEAN CORPUSCULAR HEMOGLOBIN 32 pg (25-35); MEAN CORPUSCULAR HGB CONC 34 g/dL (31-37); MEAN CORPUSCULAR VOLUME 94 fL (79-100); MONO % 11 % (0-9); NEUT % 74 % (31-73); PLATELET COUNT 359 x10^3/uL (140-400); RED BLOOD COUNT 2.96 x10^6/uL (4.30-5.70); RED CELL DISTRIBUTION WIDTH 12.6 % (11.5-14.5); WHITE BLOOD COUNT 7.9 x10^3/uL (4.0-11.0)
[2017-02-05 05:33] LABS: CALCIUM 8.6 mg/dL (8.5-10.1); CREATININE 1.4 mg/dL (0.7-1.3); GFR 67.2; POTASSIUM 3.8 mmol/L (3.5-5.1)
[2017-02-05 07:00] VITALS: BP 106/73
[2017-02-05] MEDS: POLYETHYLENE GLYCOL 3350 17 GM PACKET. PO SCH (08:20)
[2017-02-05] MEDS: oxyCODONE IR 5 MG TABLET PO PRN (08:21)
[2017-02-05] MEDS: SENNOSIDES/DOCUSATE 8.6/50MG TABLET. PO SCH (08:21)
[2017-02-05] MEDS: DOCUSATE SODIUM 100 MG CAPSULE. PO SCH (08:21)
[2017-02-05] MEDS: oxyCODONE ER 15 MG TAB.ER.12H PO SCH (08:21)
[2017-02-05] MEDS: FERROUS SULFATE 325 MG TABLET. PO SCH (08:21)
[2017-02-05 11:00] VITALS: BP 135/70
--- NOTE | 2017-02-05 11:43 | PDOC ---
PROGRESS NOTES Chief Complaint Chief Complaint (1) Femoral fracture s/p sx (2) Mild anemia post op expected (3) Hyperglycemia (4) Elevated creatine (5) Post-op leg pain (6) Narcotic induced constipation fever, no cough, but + cxr, could be 2/2 post sx PLAN: fu ortho, stable from ortho standpoint altho still swelling and has some drainage on ceftriaxone for pna? add oxycontin, cont oxycodone prn. DC Ivf fever, dc when no fever add stool softner add iron po hope dc soon, cont AC for dvt ppx as per ortho History of Present Illness History of Present Illness pt lying comfortably in bed, he denies any pain, his dc was held yesterday due to fevers so ceftriaxone was continued, no fevers this morning, he denies fevers and chills Vitals Vitals Vital Signs Date Time Temp Pulse Resp B/P (MAP) Pulse Ox O2 Delivery O2 Flow Rate FiO2 02/05/17 11:00 99.6 104 18 135/70 (91) 98 Room Air 99.6 Physical Exam General: Alert, Oriented X3, Cooperative, No acute distress Heart: Regular rate, No murmurs Lungs: Clear Abdomen: Normal bowel sounds, Soft, No tenderness Extremities: No clubbing, No cyanosis, Normal pulses, Other (left leg with dital femur incision covered with gauze. anterior thigh swellnig improved) Skin: No rashes, Other (Bandage is clean dry and intact) Labs LABS Laboratory Tests Test 02/05/17 03:00 White Blood Count 7.9 x10^3/uL (4.0-11.0) Red Blood Count 2.96 x10^6/uL (4.30-5.70) Hemoglobin 9.4 g/dL (13.0-17.5) Hematocrit 27.9 % (39.0-53.0) Mean Corpuscular Volume 94 fL (79-100) Mean Corpuscular Hemoglobin 32 pg (25-35) Mean Corpuscular Hemoglobin Concent 34 g/dL (31-37) Red Cell Distribution Width 12.6 % (11.5-14.5) Platelet Count 359 x10^3/uL (140-400) Neutrophils (%) (Auto) 74 % (31-73) Lymphocytes (%) (Auto) 12 % (24-48) Monocytes (%) (Auto) 11 % (0-9) Eosinophils (%) (Auto) 3 % (0-3) Basophils (%) (Auto) 1 % (0-3) Neutrophils # (Auto) 5.8 x10^3uL (1.8-7.7) Lymphocytes # (Auto) 1.0 x10^3/uL (1.0-4.8) Monocytes # (Auto) 0.9 x10^3/uL (0.0-1.1) Eosinophils # (Auto) 0.2 x10^3/uL (0.0-0.7) Basophils # (Auto) 0.1 x10^3/uL (0.0-0.2) Sodium Level 140 mmol/L (136-145) Potassium Level 3.8 mmol/L (3.5-5.1) Chloride Level 101 mmol/L (98-107) Carbon Dioxide Level 31 mmol/L (21-32) Anion Gap 8 (6-14) Blood Urea Nitrogen 18 mg/dL (8-26) Creatinine 1.4 mg/dL (0.7-1.3) Estimated GFR (Cockcroft-Gault) 67.2 Glucose Level 90 mg/dL (70-99) Calcium Level 8.6 mg/dL (8.5-10.1) Review of Systems Review of Systems denies N/V/D and DAVIS denies fevers and chills Assessment and Plan Assessmemt and Plan Assessment: (1) Femoral fracture (2) Mild anemia (3) Hyperglycemia (4) Elevated creatine (5) Post-op leg pain (6) Narcotic induced constipation Plan: (1.) Cont with rehab: Pt/Ot (2.) Cont wound care of surgical site (3.) Discussed plan of care with nursing (4.) Miralax for constipation (5.) Pain management (6.) Cont clot prophylaxis (7.) Ordered CTX abx for abnormal chest xray (8.) Reviewed cultures: blood NGTD (9.) Probable DC today with PO abx Problems: Comment Review of Relevant I have reviewed the following items ivette (where applicable) has been applied. Labs Laboratory Tests Test 02/04/17 03:22 02/05/17 03:00 White Blood Count 7.3 x10^3/uL (4.0-11.0) 7.9 x10^3/uL (4.0-11.0) Red Blood Count 2.75 x10^6/uL (4.30-5.70) 2.96 x10^6/uL (4.30-5.70) Hemoglobin 8.8 g/dL (13.0-17.5) 9.4 g/dL (13.0-17.5) Hematocrit 25.5 % (39.0-53.0) 27.9 % (39.0-53.0) Mean Corpuscular Volume 93 fL (79-100) 94 fL (79-100) Mean Corpuscular Hemoglobin 32 pg (25-35) 32 pg (25-35) Mean Corpuscular Hemoglobin Concent 34 g/dL (31-37) 34 g/dL (31-37) Red Cell Distribution Width 12.6 % (11.5-14.5) 12.6 % (11.5-14.5) Platelet Count 268 x10^3/uL (140-400) 359 x10^3/uL (140-400) Neutrophils (%) (Auto) 75 % (31-73) 74 % (31-73) Lymphocytes (%) (Auto) 12 % (24-48) 12 % (24-48) Monocytes (%) (Auto) 10 % (0-9) 11 % (0-9) Eosinophils (%) (Auto) 2 % (0-3) 3 % (0-3) Basophils (%) (Auto) 0 % (0-3) 1 % (0-3) Neutrophils # (Auto) 5.5 x10^3uL (1.8-7.7) 5.8 x10^3uL (1.8-7.7) Lymphocytes # (Auto) 0.9 x10^3/uL (1.0-4.8) 1.0 x10^3/uL (1.0-4.8) Monocytes # (Auto) 0.8 x10^3/uL (0.0-1.1) 0.9 x10^3/uL (0.0-1.1) Eosinophils # (Auto) 0.2 x10^3/uL (0.0-0.7) 0.2 x10^3/uL (0.0-0.7) Basophils # (Auto) 0.0 x10^3/uL (0.0-0.2) 0.1 x10^3/uL (0.0-0.2) Sodium Level 139 mmol/L (136-145) 140 mmol/L (136-145) Potassium Level 3.7 mmol/L (3.5-5.1) 3.8 mmol/L (3.5-5.1) Chloride Level 101 mmol/L (98-107) 101 mmol/L (98-107) Carbon Dioxide Level 30 mmol/L (21-32) 31 mmol/L (21-32) Anion Gap 8 (6-14) 8 (6-14) Blood Urea Nitrogen 15 mg/dL (8-26) 18 mg/dL (8-26) Creatinine 1.4 mg/dL (0.7-1.3) 1.4 mg/dL (0.7-1.3) Estimated GFR (Cockcroft-Gault) 67.2 67.2 Glucose Level 109 mg/dL (70-99) 90 mg/dL (70-99) Calcium Level 8.0 mg/dL (8.5-10.1) 8.6 mg/dL (8.5-10.1) Laboratory Tests Test 02/05/17 03:00 White Blood Count 7.9 x10^3/uL (4.0-11.0) Red Blood Count 2.96 x10^6/uL (4.30-5.70) Hemoglobin 9.4 g/dL (13.0-17.5) Hematocrit 27.9 % (39.0-53.0) Mean Corpuscular Volume 94 fL (79-100) Mean Corpuscular Hemoglobin 32 pg (25-35) Mean Corpuscular Hemoglobin Concent 34 g/dL (31-37) Red Cell Distribution Width 12.6 % (11.5-14.5) Platelet Count 359 x10^3/uL (140-400) Neutrophils (%) (Auto) 74 % (31-73) Lymphocytes (%) (Auto) 12 % (24-48) Monocytes (%) (Auto) 11 % (0-9) Eosinophils (%) (Auto) 3 % (0-3) Basophils (%) (Auto) 1 % (0-3) Neutrophils # (Auto) 5.8 x10^3uL (1.8-7.7) Lymphocytes # (Auto) 1.0 x10^3/uL (1.0-4.8) Monocytes # (Auto) 0.9 x10^3/uL (0.0-1.1) Eosinophils # (Auto) 0.2 x10^3/uL (0.0-0.7) Basophils # (Auto) 0.1 x10^3/uL (0.0-0.2) Sodium Level 140 mmol/L (136-145) Potassium Level 3.8 mmol/L (3.5-5.1) Chloride Level 101 mmol/L (98-107) Carbon Dioxide Level 31 mmol/L (21-32) Anion Gap 8 (6-14) Blood Urea Nitrogen 18 mg/dL (8-26) Creatinine 1.4 mg/dL (0.7-1.3) Estimated GFR (Cockcroft-Gault) 67.2 Glucose Level 90 mg/dL (70-99) Calcium Level 8.6 mg/dL (8.5-10.1) Microbiology 01/31/17 Blood Culture - Final, Complete NO GROWTH AFTER 5 DAYS Medications Current Medications Hydromorphone HCl (Dilaudid) 2 mg STK-MED ONCE .ROUTE ; Start 01/28/17 at 21:14 ; Stop 01/28/17 at 21:15; Status DC Hydromorphone HCl (Dilaudid) 0.5 mg PRN Q15MIN PRN IV/SQ PAIN GREATER THAN 3/ 10 Last administered on 01/28/17 22:57; Start 01/28/17 at 21:15; Stop 01/29/17 at 21:14; Status DC Sodium Chloride 1,000 ml @ 1,000 mls/hr Q1H IV Last administered on 01/28/17 21:30; Start 01/28/17 at 21:30; Stop 01/28/17 at 22:29; Status DC Morphine Sulfate 4 mg PRN Q2HR PRN IV SEVERE PAIN Last administered on 21:38; Start 01/29/17 at 00:00; Stop 01/29/17 at 23:59; Status DC Sodium Chloride 1,000 ml @ 125 mls/hr Q8H IV Last administered on 01/29/17 01 :47; Start 01/29/17 at 00:00; Stop 01/29/17 at 00:01; Status DC Sodium Chloride 1,000 ml @ 50 mls/hr Q20H IV Last administered on 02/03/17 02 :34; Start 01/29/17 at 02:30; Stop 02/03/17 at 12:07; Status DC Lidocaine HCl (Lidocaine Pf 2% Vial) 5 ml STK-MED ONCE .ROUTE ; Start 01/29/17 at 08:11; Stop 01/29/17 at 08:12; Status DC Propofol 20 ml @ As Directed STK-MED ONCE IV ; Start 01/29/17 at 08:11; Stop 06/07 at 08:12; Status DC Fentanyl Citrate (Fentanyl 2ml Vial) 100 mcg STK-MED ONCE .ROUTE ; Start at 08:11; Stop 01/29/17 at 08:12; Status DC Fentanyl Citrate (Fentanyl 2ml Vial) 100 mcg STK-MED ONCE .ROUTE ; Start at 08:38; Stop 01/29/17 at 08:39; Status DC Ondansetron HCl (Zofran) 4 mg PRN Q6HRS PRN IV NAUSEA/VOMITING; Start 01/29/17 at 08:45; Stop 01/29/17 at 18:00; Status DC Fentanyl Citrate (Fentanyl 2ml Vial) 25 mcg PRN Q5MIN PRN IV MILD PAIN; Start 01/29/17 at 08:45; Stop 01/29/17 at 18:00; Status DC Fentanyl Citrate (Fentanyl 2ml Vial) 50 mcg PRN Q5MIN PRN IV MODERATE PAIN Last administered on 01/29/17t 12:35; Start 01/29/17 at 08:45; Stop 01/29/17 at 18:00; Status DC Morphine Sulfate 1 mg PRN Q10MIN PRN IV SEVERE PAIN; Start 01/29/17 at 08:45; Stop 01/29/17 at 18:00; Status DC Ringer's Solution 1,000 ml @ 30 mls/hr Q24H IV ; Start 01/29/17 at 08:43; Stop 01/29/17 at 20:42; Status DC Lidocaine HCl 2 ml PRN 1X PRN ID PRIOR TO IV START; Start 01/29/17 at 08:45; Stop 01/29/17 at 18:00; Status DC Hydromorphone HCl (Dilaudid) 0.5 mg PRN Q10MIN PRN IV SEV PAIN, Second choice Last administered on 01/29/17 13:28; Start 01/29/17 at 08:45; Stop 01/29/17 at 18:00; Status DC Prochlorperazine Edisylate (Compazine) 5 mg PACU PRN PRN IV NAUSEA, MRX1; Start 01/29/17 at 08:45; Stop 01/29/17 at 18:00; Status DC Cefazolin Sodium/ Dextrose 50 ml @ 100 mls/hr 1X PREOP PRN IV PRE OP DOSE Last administered on 01/29/17 11:05; Start 01/29/17 at 10:15; Stop 01/29/17 at 18:00; Status DC Dexamethasone Sodium Phosphate (Decadron) 20 mg STK-MED ONCE .ROUTE ; Start 06/07 at 10:58; Stop 01/29/17 at 10:59; Status DC Sevoflurane (Ultane) 60 ml STK-MED ONCE IH ; Start 01/29/17 at 10:58; Stop 01/29 at 10:59; Status DC Ondansetron HCl (Zofran) 4 mg STK-MED ONCE .ROUTE ; Start 01/29/17 at 11:24; Stop 01/29/17 at 11:25; Status DC Oxycodone HCl (Roxicodone) 5 mg PRN Q3HRS PRN PO PAIN Last administered on 01/30 10:10; Start 01/29/17 at 13:00; Stop 01/30/17 at 19:16; Status DC Morphine Sulfate 2 mg PRN Q1HR PRN IV PAIN Last administered on 02/03/17 17:07 ; Start 01/29/17 at 13:00 Fentanyl Citrate (Fentanyl 2ml Vial) 25 mcg PRN Q1HR PRN IV PAIN; Start at 13:00 Senna/Docusate Sodium (Senna Plus) 1 tab DAILY PO Last administered on 08:48; Start 01/29/17 at 14:00; Stop 02/03/17 at 12:07; Status DC Polyethylene Glycol (miraLAX PACKET) 17 gm PRN DAILY PRN PO CONSTIPATION; Start 01/29/17 at 13:00 Ondansetron HCl (Zofran) 4 mg PRN Q4HRS PRN IV NAUSEA/VOMITING; Start 01/29/17 at 13:00 Warfarin Sodium (Coumadin) 7.5 mg 1X ONCE PO Last administered on 01/29/17 17 :44; Start 01/29/17 at 16:00; Stop 01/29/17 at 16:01; Status DC Warfarin Sodium (Coumadin Per Pharmacy) 1 each PRN DAILY PRN MC SEE COMMENTS Last administered on 01/31/17 10:17; Start 01/30/17 at 13:00; Stop 01/31/17 at 11:33; Status DC Magnesium Hydroxide (Milk Of Magnesia) 2,400 mg 1X PRN PRN PO CONSTIPATION; Start 01/30/17 at 06:00; Stop 01/31/17 at 05:59; Status DC Bisacodyl (Dulcolax Supp) 10 mg 1X PRN PRN [place] CONSTIPATION; Start 01/30/17 at 16:00; Stop 01/31/17 at 15:59; Status DC Acetaminophen/ Hydrocodone Bitart (Lortab 7.5/325) 1 tab PRN Q4HRS PRN PO PAIN Last administered on 02/04/17 11:17; Start 01/29/17 at 13:00 Morphine Sulfate 4 mg PRN Q2HR PRN IV PAIN Last administered on 02/04/17 01:38 ; Start 01/29/17 at 13:00 Acetaminophen/ Hydrocodone Bitart (Lortab 7.5/325) 2 tab PRN Q4HRS PRN PO PAIN Last administered on 02/03/17 08:48; Start 01/29/17 at 13:00; Stop 02/03/17 at 12:07; Status DC Dextrose (Dextrose 50%-Water Syringe) 12.5 gm PRN Q15MIN PRN IV SEE COMMENTS; Start 01/29/17 at 13:00 Cefazolin Sodium/ Dextrose 50 ml @ 100 mls/hr Q6H IV Last administered on 01/30 06:13; Start 01/29/17 at 18:00; Stop 01/30/17 at 06:29; Status DC Enoxaparin Sodium (Lovenox 40mg Syringe) 40 mg Q24H SQ Last administered on 10:10; Start 01/30/17 at 07:00; Stop 01/31/17 at 12:00; Status DC Polyethylene Glycol (miraLAX PACKET) 17 gm BID PO Last administered on 08:20; Start 01/29/17 at 21:00 Warfarin Sodium (Coumadin) 5 mg 1X WARF ONCE PO Last administered on 18:23; Start 01/30/17 at 16:00; Stop 01/30/17 at 16:01; Status DC Oxycodone HCl (Roxicodone) 10 mg PRN Q3HRS PRN PO PAIN Last administered on 08:21; Start 01/30/17 at 19:15 Cyclobenzaprine HCl (Flexeril) 10 mg PRN Q6HRS PRN PO MUSCLE SPASMS Last administered on 02/04/17 18:16; Start 01/30/17 at 19:15 Acetaminophen (Tylenol) 650 mg PRN Q4HRS PRN PO FEVER Last administered on 02/05 04:10; Start 01/31/17 at 04:15 Warfarin Sodium (Coumadin) 3 mg 1X WARF ONCE PO ; Start 01/31/17 at 16:00; Stop 01/31/17 at 16:01; Status Cancel Rivaroxaban (Xarelto) 10 mg DAILYWSUP PO Last administered on 02/04/17 16:29; Start 01/31/17 at 17:00; Stop 02/27/17 at 17:01 Info (Anti-Coagulation Monitoring By Pharmacy) 1 each PRN DAILY PRN MC SEE COMMENTS Last administered on 02/01/17 13:04; Start 01/31/17 at 11:45; Stop at 12:53; Status DC Diphenhydramine HCl (Benadryl) 25 mg 1X ONCE PO Last administered on 21:06; Start 01/31/17 at 21:00; Stop 01/31/17 at 21:01; Status DC Ceftriaxone Sodium 1 gm/ Sodium Chloride 50 ml @ 100 mls/hr Q24H IV Last administered on 02/04/17 12:24; Start 02/01/17 at 12:30 Ferrous Sulfate (Feosol) 325 mg DAILYWBKFT PO Last administered on 02/05/17 08 :21; Start 02/02/17 at 19:00 Senna/Docusate Sodium (Senna Plus) 1 tab BID PO Last administered on 02/05/17 08:21; Start 02/03/17 at 21:00 Oxycodone HCl (OxyCONTIN) 15 mg Q12HR PO Last administered on 02/05/17 08:21; Start 02/03/17 at 13:00 Docusate Sodium (Colace) 100 mg DAILY PO Last administered on 02/05/17 08:21; Start 02/03/17 at 13:00 Info (Anti-Coagulation Monitoring By Pharmacy) 1 each PRN DAILY PRN MC SEE COMMENTS Last administered on 02/04/17 11:05; Start 02/04/17 at 11:00 Active Scripts Active Reported No Known Medications Prior To Admisstion (Info) Each 1 Each Vitals/I & O Vital Sign - Last 24 Hours 02/04/17 02/04/17 02/04/17 02/04/17 12:17 12:24 15:22 18:17 Temp 101.3 101.3 Pulse 114 Resp 18 18 19 16 B/P (MAP) 133/76 (95) Pulse Ox 98 O2 Delivery Room Air Room Air Room Air Room Air 02/04/17 02/04/17 02/04/17 02/04/17 19:05 19:17 20:00 21:45 Temp 102.4 102.4 Pulse 118 Resp 18 20 18 B/P (MAP) 146/70 (95) Pulse Ox 99 99 99 O2 Delivery Room Air Room Air Room Air 02/04/17 02/05/17 02/05/17 02/05/17 22:50 01:45 03:03 07:00 Temp 101.1 100.5 98.7 101.1 100.5 98.7 Pulse 112 119 109 Resp 16 20 16 18 B/P (MAP) 115/76 (89) 112/75 (87) 106/73 (84) Pulse Ox 96 99 99 98 O2 Delivery Room Air Room Air Room Air Room Air 02/05/17 02/05/17 02/05/17 02/05/17 07:30 08:21 08:21 09:59 O2 Delivery Room Air Room Air Room Air Room Air 02/05/17 11:00 Temp 99.6 99.6 Pulse 104 Resp 18 B/P (MAP) 135/70 (91) Pulse Ox 98 O2 Delivery Room Air Intake and Output 02/04/17 02/04/17 02/05/17 15:00 23:00 07:00 Intake Total 290 ml Output Total 200 ml 1200 ml 600 ml Balance 90 ml -1200 ml -600 ml PATRICIA NAVARRETE III DO Feb 05, 2017 11:43
[2017-02-05] MEDS ORDERED: OXYC-323 PO (14:47)
[2017-02-05] MEDS ORDERED: AMOX1TAB10 PO (14:47)
[2017-02-05] MEDS ORDERED: RIVA10TA PO (14:50)
[2017-02-05 15:03] VITALS: BP 143/51
[2017-02-05] MEDS: RIVAROXABAN 10 MG TABLET. PO SCH (17:48)
== END 2017-02-05 18:36 | disposition home or self-care (01) | DRG 480 ==
LOC: EDSEX 21:05 → ER 21:05 → 4 NORTH 21:36
PROVIDERS: ADMIT Internal Medicine Hematology & Oncology; ATTEND Internal Medicine Hematology & Oncology
PROC: 0QS904Z Reposition Left Femoral Shaft with Internal Fixation Device, Open Approach (ICD-10-PCS; principal; 2017-01-29 10:10)
DX: S72.352A Displaced comminuted fracture of shaft of left femur, initial encounter for closed fracture (principal); J18.9 Pneumonia, unspecified organism; T79.A0XA Compartment syndrome, unspecified, initial encounter; W19.XXXA Unspecified fall, initial encounter; D64.9 Anemia, unspecified; R73.9 Hyperglycemia, unspecified; K59.03 Drug induced constipation; R50.9 Fever, unspecified; M79.652 Pain in left thigh; X58.XXXA Exposure to other specified factors, initial encounter; T40.605A Adverse effect of unspecified narcotics, initial encounter; Y92.89 Other specified places as the place of occurrence of the external cause; Y93.64 Activity, baseball; Y99.8 Other external cause status; Y92.320 Baseball field as the place of occurrence of the external cause
CPT/HCPCS: 36415; 71010; 72170; 73552; 76000; 80048; 81001; 85007; 85014; 85018; 85027; 85610; 85730; 87040; 96360; 96361; C1713; G0480; J0690; J0696; J1100; J1170; J1650; J2001; J2270; J2405; J2704; J3010; J7030; Q0163; 97110; 97116; 97530; 97535; 99285-25; A6539